=== PATIENT | male | born 1960 | race Caucasian/White ===

== ENCOUNTER → 2016-07-21 | Outpatient (CLI) | payer MEDICAID, MEDICARE ==
[~2016-07-21] MED LIST: AMLO10TA PO; ASPI-892 PO; ATOR40TA PO; BNZ40T PO; CLON0.1T PO; DICL75TA2 PO; ESZO2TAB4 PO; HYDR12.56 PO; HYDR25TA4 PO; METF500T8 PO; METO50TA2 PO; MULT-974 PO; PRAV40TA PO; PRED10TA PO; PSYL1PAC10 PO; SERT50TA9 PO
--- NOTE | 2016-07-21 13:16 | Diagnostic Imaging Report ---
PROCEDURE: MRI lumbar spine. TECHNIQUE: Multiplanar, multisequence MRI of the lumbar spine was performed without contrast. INDICATION: Low back pain. Right sciatica. COMPARISON: None. FINDINGS: There are five lumbar type vertebral bodies presumed for the purposes of this report. Normal alignment. Vertebral body heights are maintained. Benign hemangioma in the L1 vertebral body. Bone marrow signal is otherwise unremarkable. No abnormal signal in the conus, which terminates at L1. Normal morphology of the cauda equina without evidence of arachnoiditis. The visualized paravertebral soft tissues are unremarkable. At L4-L5, there is a right paracentral disc extrusion with superior migration that approaches the L3-L4 disc space. This results in moderate spinal canal narrowing, obliteration of the right lateral recess and compresses the exiting L4 nerve root. Facet arthropathy and disc space height loss contributes to moderate neural foraminal narrowing on the right at L3-L4, L4-L5 and L5-S1. There is moderate neuroforaminal narrowing on the left at L4-L5. No other substantial spinal canal, lateral recess or neural foraminal narrowing. IMPRESSION: 1. Large disc extrusion at L4-L5 would account for a right L4 and L5 radiculopathy. This also results in moderate spinal canal narrowing. 2. Lower lumbar moderate neural foraminal narrowing detailed above is greatest on the right. Dictated by: Dictated on workstation # [id number]
== END ==
LOC: RAD 12:09
PROVIDERS: ATTEND Nurse Practitioner Family
DX: M54.41 Lumbago with sciatica, right side (principal)
CPT/HCPCS: 72148

== ENCOUNTER 2016-08-29 15:37 | Observation (INO) | payer MEDICARE ==
[2016-08-29] VITALS (11 sets, daily range): BP systolic 123–141; BP diastolic 73–97
[~2016-08-29] VITALS: Ht 172.7 cm; Wt 115.2 kg
[2016-08-29] MEDS ORDERED: RX-NITROGLYCERIN 0.4 MG TAB BTL 25'S SL PRN (16:00)
[2016-08-29] MEDS ORDERED: ASPIRIN 81 MG CHEW (CHILDREN'S ASA) PO ONE (16:00)
[2016-08-29 16:13] LABS: BASOPHILS % (AUTO) 0 % (0-10); EOSINOPHILS # (AUTO) 0.2 10^3/uL (0.0-0.3); EOSINOPHILS % (AUTO) 2 % (0-10); LYMPHOCYTES # (AUTO) 1.8 X 10^3 (1.0-4.0); LYMPHOCYTES % (AUTO) 17 % (12-44); MEAN CORPUSCULAR HEMOGLOBIN 29 PG (25-34); MEAN CORPUSCULAR HGB CONC 33 G/DL (32-36); MEAN CORPUSCULAR VOLUME 86 FL (80-99); MEAN PLATELET VOLUME 9.8 FL (7.4-10.4); MONOCYTES # (AUTO) 0.7 X 10^3 (0.0-1.0); MONOCYTES % (AUTO) 6 % (0-12); NEUTROPHILS # (AUTO) 8.1 X 10^3 (1.8-7.8); NEUTROPHILS % (AUTO) 75 % (42-75); PLATELET COUNT 236 10^3/uL (130-400); RED BLOOD COUNT 4.65 10^6/uL (4.35-5.85); WHITE BLOOD COUNT 10.7 10^3/uL (4.3-11.0)
--- NOTE | 2016-08-29 16:17 | Diagnostic Imaging Report ---
INDICATION: Chest pain and shortness of breath. EXAMINATION: PA and lateral chest. FINDINGS: The heart size and pulmonary vascularity are normal. The lungs are clear. There are no effusions or pneumothoraces. IMPRESSION: Negative chest. Dictated by: Dictated on workstation # [id number]
[2016-08-29 16:19] LABS: PROTHROMBIN TIME PATIENT 13.3 SEC (12.2-14.7)
[2016-08-29 16:27] LABS: ALANINE AMINOTRANSFERASE 20 U/L (0-55); ALBUMIN 3.9 GM/DL (3.2-4.5); ANION GAP 13 MMOL/L (5-14); ASPARTATE AMINO TRANSFERASE 16 U/L (5-34); BILIRUBIN,TOTAL 0.3 MG/DL (0.1-1.0); BLOOD UREA NITROGEN 14 MG/DL (7-18); BUN/CREATININE RATIO 16; CALCIUM 8.9 MG/DL (8.5-10.1); CARBON DIOXIDE 23 MMOL/L (21-32); CHLORIDE 107 MMOL/L (98-107); CREATININE SERUM 0.87 MG/DL (0.60-1.30); GFR ESTIMATED > 60; GLUCOSE 141 MG/DL (70-105); MAGNESIUM 1.8 MG/DL (1.8-2.4); POTASSIUM 3.2 MMOL/L (3.6-5.0); SODIUM 143 MMOL/L (135-145); TOTAL PROTEIN 6.4 GM/DL (6.4-8.2)
[2016-08-29 16:33] LABS: MYOGLOBIN SERUM 57.9 NG/ML (10.0-92.0)
[2016-08-29] MEDS ORDERED: RT-ALBUTEROL SULF 2.5 MG/3 ML PRE-MIX VIAL INH STA (16:35)
[2016-08-29] MEDS ORDERED: KCL 10 MEQ TAB (MICRO K) PO ONE (16:45)
--- NOTE | 2016-08-29 16:49 | ED Chest Pain ---
General Chief Complaint: Chest Pain Stated Complaint: SOB/DIZZINESS/LOWER BACK PAIN Nursing Triage Note: PT CO OF SOA STARTED THIS AMAND DIZZINESS X2 WEEKS, PT STATES HAD CHEST TIGHTNESS APPROX 4 HOURS AGO. Nursing Sepsis Screen: No Definite Risk Source: patient, old records Exam Limitations: no limitations History of Present Illness Time seen by provider: 15:59 Initial Comments This 56-year-old gentleman presents to emergency room with complaint of "dizzy spells" for the past 3 weeks intermittently. He reports lightheadedness with near-syncope especially upon standing. He has had shortness of air associated with these spells as well as shortness of air throughout the day. He had an episode of mild chest tightness today around 11:00. He had a cardiac catheterization performed a year ago demonstrating diffuse coronary ectasia with slow flow in the circumflex and right coronary system due to small vessel disease. He denies any lower extremity pain. He denies any fever or cough. Allergies and Home Medications Allergies Coded Allergies: Penicillins (Unverified Allergy, Mild, hives , 08/13/14) Sulfa (Sulfonamide Antibiotics) (Unverified Allergy, Mild, hives , 08/13/14 ) hydrocodone (Unverified Allergy, Mild, headache , 08/13/14) Home Medications Albuterol/Ipratropium 4 Gm Aero, 2 PUFF IH, (Reported) Amlodipine Besylate 10 Mg Tablet, 10 MG PO DAILY, (Reported) Aspirin 81 Mg Tabec, 81 MG PO DAILY, (Reported) Atorvastatin Calcium 40 Mg Tablet, 40 MG PO DAILY, #30 Ref 4 Prescribed by: BULL BROWN on 08/13/14 1104 Benazepril HCl 40 Mg Tablet, 40 MG PO DAILY, (Reported) Benazepril Hcl 40 Mg Tablet, 40 MG PO DAILY, (Reported) Benztropine Mesylate 1 Mg Tablet, 1 MG PO DAILY, (Reported) Citalopram Hydrobromide 40 Mg Tablet, 40 MG PO DAILY, (Reported) Clonazepam 0.5 Mg Tablet, 0.5 MG PO BID, (Reported) Clonidine Hcl 0.1 Mg Tablet, 0.05 MG PO BID, (Reported) TAKES 1/2 (0.1MG) TABLET Diazepam 5 Mg Tablet, 5 MG PO PRN, (Reported) Diclofenac Sodium 75 Mg Tablet.dr, 75 MG PO BID PRN for ARTHRITIS PAIN, ( Reported) Eszopiclone 2 Mg Tablet, 2 MG PO HS, (Reported) Gabapentin 300 Mg Capsule, 300 MG PO DAILY, (Reported) Hydrochlorothiazide 25 Mg Tablet, 25 MG PO DAILY, (Reported) Metformin HCl 500 Mg Tab.er.24, 500 MG PO BID, (Reported) Metoprolol Tartrate 50 Mg Tablet, 50 MG PO BID, (Reported) Multivitamin 1 Each Tablet, 1 TAB PO DAILY, (Reported) Omeprazole Magnesium 20 Mg Tablet.dr, 40 MG PO DAILY, (Reported) Oxycodone HCl/Acetaminophen 1 Each Tablet, 1 EACH PO PRN, (Reported) Potassium Chloride 10 Meq Capsule.er, 10 MEQ PO DAILY, (Reported) Psyllium Seed/Sucrose 1 Each Packet, 1 PACKET PO BID, (Reported) Sertraline Hcl 50 Mg Tablet, 25 MG PO HS, (Reported) TAKES 1/2 (50MG) TABLET Tadalafil 5 Mg Tablet, 5 MG PO, (Reported) Tamsulosin HCl 0.4 Mg Cap.er.24h, 0.4 MG PO DAILY, (Reported) Terbinafine 250 Mg Tab, 250 MG PO DAILY, (Reported) Trazodone HCl 100 Mg Tablet, 100 MG PO HS, (Reported) Ziprasidone 80 Mg Cap, 80 MG PO HS, (Reported) Review of Systems Constitutional: no symptoms reported EENTM: No Symptoms Reported Respiratory: See HPI Cardiovascular: See HPI Gastrointestinal: No Symptoms Reported Genitourinary: No Symptoms Reported Musculoskeletal: no symptoms reported Skin: no symptoms reported Psychiatric/Neurological: No Symptoms Reported Endocrine: No Symptoms Reported Hematologic/Lymphatic: No Symptoms Reported Past Awdsbii-Fvhzhp-Hxfypt Hx Patient Social History Alcohol Use: Occasionally Uses Recreational Drug Use: No Smoking Status: Never a Smoker Type Used: Cigarettes Recent Foreign Travel: No Contact w/Someone Who Travel: No Recent Infectious Disease Expo: No Recent Hopitalizations: No Seasonal Allergies Seasonal Allergies: No Surgeries Surgeries: Adenoidectomy, Appendectomy, Tonsillectomy Respiratory Hx Respiratory Disorders: Yes Respiratory Disorders: Asthma Cardiovascular Hx Cardiac Disorders: Yes Cardiac Disorders: Hypertension Neurological Hx Neurological Disorders: No Genitourinary Hx Genitourinary Disorders: No Gastrointestinal Hx Gastrointestinal Disorders: Yes (umbilical hernia) Gastrointestinal Disorders: Gastroesophageal Reflux Musculoskeletal Hx Musculoskeletal Disorders: No Endocrine Hx Endocrine Disorders: Yes (obesity) Endocrine Disorders: Diabetes, Non-Insulin dep HEENT HX ENT Disorders: No Cancer Hx Cancer: No Psychosocial Hx Psychiatric Problems: Yes Behavioral Health Disorders: Depression Physical Exam Vital Signs Vital Sign - Last 12Hours 08/29/16 08/29/16 15:45 16:25 Temp 97.9 Pulse 59 Resp 11 B/P (MAP) 128/75 Pulse Ox 95 O2 Delivery Room Air O2 Flow Rate 2.00 Capillary Refill : Less Than 3 Seconds General Appearance: No Apparent Distress, WD/WN, Obese HEENT: PERRL/EOMI, Normal ENT Inspection Neck: Normal Inspection, Supple, No Carotid Bruit, No JVD Respiratory: Lungs Clear, Normal Breath Sounds, No Accessory Muscle Use, No Respiratory Distress Cardiovascular: Regular Rate, Rhythm (borderline bradycardia), No Murmur, Normal Peripheral Pulses Gastrointestinal: Normal Bowel Sounds, Non Tender, Soft Extremity: Normal Inspection, Non Tender, No Calf Tenderness, Swelling (mild lower extremity edema equal bilaterally), Other (negative Bola) Neurologic/Psychiatric: Alert, Oriented x3, No Motor/Sensory Deficits, Normal Mood/Affect, warehouse inventory clerk II-XII Norm as Tested Skin: Normal Color, Warm/Dry Progress/Results/Core Measures Results/Orders Lab Results Laboratory Tests Test 08/29/16 15:55 Range/Units White Blood Count 10.7 4.3-11.0 10^3/uL Red Blood Count 4.65 4.35-5.85 10^6/uL Hemoglobin 13.3 13.3-17.7 G/DL Hematocrit 40 40-54 % Mean Corpuscular Volume 86 80-99 FL Mean Corpuscular Hemoglobin 29 25-34 PG Mean Corpuscular Hemoglobin Concent 33 32-36 G/DL Red Cell Distribution Width 14.0 10.0-14.5 % Platelet Count 236 130-400 10^3/uL Mean Platelet Volume 9.8 7.4-10.4 FL Neutrophils (%) (Auto) 75 42-75 % Lymphocytes (%) (Auto) 17 12-44 % Monocytes (%) (Auto) 6 0-12 % Eosinophils (%) (Auto) 2 0-10 % Basophils (%) (Auto) 0 0-10 % Neutrophils # (Auto) 8.1 H 1.8-7.8 X 10^3 Lymphocytes # (Auto) 1.8 1.0-4.0 X 10^3 Monocytes # (Auto) 0.7 0.0-1.0 X 10^3 Eosinophils # (Auto) 0.2 0.0-0.3 10^3/uL Basophils # (Auto) 0.0 0.0-0.1 10^3/uL Prothrombin Time 13.3 12.2-14.7 SEC INR Comment 1.0 0.8-1.4 Activated Partial Thromboplast Time 29 24-35 SEC D-Dimer 0.70 H 0.00-0.49 UG/ML Sodium Level 143 135-145 MMOL/L Potassium Level 3.2 L 3.6-5.0 MMOL/L Chloride Level 107 98-107 MMOL/L Carbon Dioxide Level 23 21-32 MMOL/L Anion Gap 13 5-14 MMOL/L Blood Urea Nitrogen 14 7-18 MG/DL Creatinine 0.87 0.60-1.30 MG/DL Estimat Glomerular Filtration Rate > 60 BUN/Creatinine Ratio 16 Glucose Level 141 H 70-105 MG/DL Calcium Level 8.9 8.5-10.1 MG/DL Magnesium Level 1.8 1.8-2.4 MG/DL Total Bilirubin 0.3 0.1-1.0 MG/DL Aspartate Amino Transf (AST/SGOT) 16 5-34 U/L Alanine Aminotransferase (ALT/SGPT) 20 0-55 U/L Alkaline Phosphatase 66 40-136 U/L Myoglobin 57.9 10.0-92.0 NG/ML Troponin I < 0.30 <0.30 NG/ML B-Type Natriuretic Peptide 42.4 <100.0 PG/ML Total Protein 6.4 6.4-8.2 GM/DL Albumin 3.9 3.2-4.5 GM/DL My Orders Orders - JUAN OVALLE MD Cbc With Automated Diff (08/29/16 15:59) Magnesium (08/29/16 15:59) Ekg Tracing (08/29/16 15:59) Cardiac Profile 1 (08/29/16 15:59) Comprehensive Metabolic Panel (08/29/16 15:59) Myoglobin Serum (08/29/16 15:59) Protime With Inr (08/29/16 15:59) Partial Thromboplastin Time (08/29/16 15:59) O2 (08/29/16 15:59) Monitor-Rhythm Ecg Trace Only (08/29/16 15:59) Lipid Panel (08/30/16 06:00) Aspirin Chewable Tablet (Baby Aspirin Ch (08/29/16 16:00) Rx-Nitroglycerin Sl Tabs (Rx-Nitrostat S (08/29/16 16:00) Saline Lock/Iv-Start (08/29/16 15:59) Chest Pa/Lat (2 View) (08/29/16 16:01) Us Carotid Rubina Complete [id number] (08/29/16 16:25) Albuterol Pre-Mix Nebs (Rt) (Proventil P (08/29/16 16:35) Svn Sm Volume Nebulizer Rt-Rfs (08/29/16 16:35) Potassium Chloride (Tablet) (Klor Con Ta (08/29/16 16:45) Fibrin Degradation Products (08/29/16 17:29) Ct Angio Chest W (08/29/16 17:58) Iohexol Injection (Omnipaque 350 Mg/Ml 1 (08/29/16 18:00) Sodium Chloride Flush (Catheter Flush Sy (08/29/16 18:00) Ns (Ivpb) (Sodium Chloride 0.9% Ivpb Bag (08/29/16 18:00) BNP (08/29/16 18:18) Medications Given in ED Vital Signs/I&O Vital Sign - Last 12Hours 08/29/16 08/29/16 08/29/16 08/29/16 15:45 15:45 16:25 16:54 Temp 97.9 Pulse 59 Resp 11 B/P (MAP) 128/75 Pulse Ox 95 87 96 O2 Delivery Room Air Nasal Cannula Nasal Cannula O2 Flow Rate 2.00 2.00 Blood Pressure Mean: 92 Progress Note #1: Time: 16:53 Progress Note Patient was noted to have mild hypoxia on room air with oxygen saturations dipping as low as 87 percent on room air. Although pulmonary exam was normal, an albuterol nebulizer treatment is being administered. If hypoxia and shortness of air persist, screening for pulmonary embolus will be considered. Patient reports having one very brief episode of tightness in the exam room since triage. Carotid artery ultrasound has been ordered and is pending. Cardiac catheter from a year ago was reviewed. Progress Note #2: Time: 17:28 Progress Note Oxygen saturations have improved somewhat since receiving the albuterol nebulizer treatment. He denies any further episodes of chest tightness. Oxygen saturations are running 90-94 percent on room air. Because they are still lower than expected, a d-dimer will be ordered. Carotid artery ultrasound is still pending. Progress Note #3: Time: 18:05 Progress Note D-dimer was mildly elevated. CT angiogram has been ordered. Oxygen saturations are now 97 percent on room air. Patient has had no more chest tightness but did have a brief episode of nausea. Carotid ultrasound was reportedly negative per environmental compliance technician. Progress Note #4: Time: 18:[address] angiogram is pending. Case was reviewed with Dr. Hernandez. If CT is positive for pulmonary embolus and patient remained stable, he can be treated accordingly and dismissed. If CT is negative, he recommends admission for monitoring cardiac rhythm and performing a troponin rule out. He recommends admitting to the primary care or hospitalist service with a cardiology consult. ECG Initial ECG Impression Date: Aug 29, 2016 Initial ECG Impression Time: 15:54 Initial ECG Rate: 56 Initial ECG Rhythm: Normal Sinus Initial ECG Intervals: Normal Initial ECG Impression: Normal Comment Normal sinus rhythm with no ST elevation or depression. No abnormal intervals or axis deviation. Diagnostic Imaging Diagonstic Imaging: Xray Plain Films/CT/US/NM/MRI: chest Comments Chest x-ray viewed by me and report reviewed. See report below: NAME: MERON CHAPARRO [facility] REC#: [id number] PT STATUS: REG ER : 1960 PHYSICIAN: JUAN OVALLE MD ADMIT DATE: 08/29/16/ER Signed Date of Exam: 08/29/16 CHEST PA/LAT (2 VIEW) INDICATION: Chest pain and shortness of breath. EXAMINATION: PA and lateral chest. FINDINGS: The heart size and pulmonary vascularity are normal. The lungs are clear. There are no effusions or pneumothoraces. IMPRESSION: Negative chest. Dictated by: Dictated on workstation # [id number] Dict: 08/29/16 1615 Trans: 08/29/16 1618 Interpreted by: VINNIE HUGHES Electronically signed by: VINNIE HUGHES 08/29/16 1618 Diagonstic Imaging: Ultrasound Comments NAME: MERON CHAPARRO [facility] REC#: [id number] PT STATUS: REG ER : 1960 PHYSICIAN: JUAN OVALLE MD ADMIT DATE: 08/29/16/ER Signed Date of Exam: 08/29/16 US CAROTID RUBINA COMPLETE [id number] PROCEDURE: US Carotid Duplex Bilateral. TECHNIQUE: Multiple real-time grayscale images were obtained over the carotid arteries in various projections bilaterally. Additional duplex Doppler and color Doppler images were also obtained. INDICATION: Shortness of breath and dizziness. FINDINGS: No significant plaque formation is seen within either carotid artery system. There are no elevated velocities or ratios to suggest a hemodynamically significant stenosis within either carotid artery system. There is antegrade flow in the vertebral arteries bilaterally. IMPRESSION: 1. Unremarkable bilateral carotid ultrasound. Peak systolic velocities and flow ratios are described below. 2. Common carotid artery on right is 81 cm/s and on left 83 cm/s. Internal carotid artery on right 52 cm/s and on left 58 cm/s. Internal carotid artery distally on right is 46 cm/s and on left 42 cm/s. ICA/CCA ratio on right is 0.6 and on left -0.5. Dictated by: Dictated on workstation # [id number] Dict: 08/29/161823 Trans: 08/29/161838 Interpreted by: PATT CURRAN DO Electronically signed by: PATT CURRAN DO 08/29/16 1839 Diagonstic Imaging: CT Plain Films/CT/US/NM/MRI: chest Comments CT angiogram viewed by me and report reviewed. See report below: NAME: MERON CHAPARRO [facility] REC#: [id number] PT STATUS: REG ER : 1960 PHYSICIAN: JUAN OVALLE MD ADMIT DATE: 08/29/16/ER Signed Date of Exam: 08/29/16 CT ANGIO CHEST W PROCEDURE: CT angiography of the chest with contrast. TECHNIQUE: Multiple contiguous axial images were obtained through the chest after uneventful bolus administration of intravenous contrast. Reconstructed CTA MIP acquisitions were also performed. INDICATION: Chest pain and shortness of breath. COMPARISON: None. FINDINGS: There is no evidence of pulmonary embolus or thoracic aortic abnormality. There is no pneumothorax. There are trace effusions with some pleural calcification bilaterally in the lung bases. There is mild basilar atelectasis. The lungs are otherwise clear. No focal pneumonia is seen. There is no adenopathy demonstrated. No acute abnormality is demonstrated in the visualized upper abdomen. No acute osseous abnormality is seen. IMPRESSION: No evidence of pulmonary embolus or other acute abnormality in the chest. Dictated by: Dictated on workstation # [id number] Dict: 08/29/161831 Trans: 08/29/161849 Interpreted by: PATT CURRAN DO Electronically signed by: PATT CURRAN DO 08/29/161849 Departure Communication Time/Spoke to Admitting Phy: 19:00 Communication Case reviewed with Dr. Saez who agrees to admission. She would like to continue home medications to see how he responds on his usual treatment plan. Time/Spoke to Consulting Physi: 18:14 Communication/Consulting Case reviewed with Dr. Hernandez who recommended admission for troponin rule out and rhythm monitoring overnight. CT angiogram and BNP results were sent to him as an update as requested. Impression Impression: Primary Impression: Near syncope Additional Impressions: Dyspnea Qualified Codes: R06.00 - Dyspnea, unspecified Hypoxia Chest pain Qualified Codes: R07.9 - Chest pain, unspecified Asthma exacerbation Hypokalemia Disposition: ADMITTED INPATIENT Condition: Improved Decision to Admit Reason: Admit from ER (General) Decision to Admit/Date: Aug 29, 2016 Time/Decision to Admit Time: 18:14 Departure-Patient Inst. Referrals: MARLINE VERA DO (PCP) Primary Care Physician JESSICA MANCILLA (Family) Primary Care Physician JUAN OVALLE MD Aug 29, 2016 16:49
[2016-08-29] MEDS ORDERED: CATHETER FLUSH 10 ML SYR IV PRN (18:00)
[2016-08-29] MEDS ORDERED: IOHEXOL 350 MG/ML 150 ML (OMNIPAQUE 350) VIAL IV ONE (18:00)
[2016-08-29] MEDS ORDERED: NS 100 ML (IVPB) BAG IV ONE (18:00)
--- NOTE | 2016-08-29 18:32 | Diagnostic Imaging Report ---
PROCEDURE: US Carotid Duplex Bilateral. TECHNIQUE: Multiple real-time grayscale images were obtained over the carotid arteries in various projections bilaterally. Additional duplex Doppler and color Doppler images were also obtained. INDICATION: Shortness of breath and dizziness. FINDINGS: No significant plaque formation is seen within either carotid artery system. There are no elevated velocities or ratios to suggest a hemodynamically significant stenosis within either carotid artery system. There is antegrade flow in the vertebral arteries bilaterally. IMPRESSION: 1. Unremarkable bilateral carotid ultrasound. Peak systolic velocities and flow ratios are described below. 2. Common carotid artery on right is 81 cm/s and on left 83 cm/s. Internal carotid artery on right 52 cm/s and on left 58 cm/s. Internal carotid artery distally on right is 46 cm/s and on left 42 cm/s. ICA/CCA ratio on right is 0.6 and on left -0.5. Dictated by: Dictated on workstation # [id number]
--- NOTE | 2016-08-29 18:45 | Diagnostic Imaging Report ---
PROCEDURE: CT angiography of the chest with contrast. TECHNIQUE: Multiple contiguous axial images were obtained through the chest after uneventful bolus administration of intravenous contrast. Reconstructed CTA MIP acquisitions were also performed. INDICATION: Chest pain and shortness of breath. COMPARISON: None. FINDINGS: There is no evidence of pulmonary embolus or thoracic aortic abnormality. There is no pneumothorax. There are trace effusions with some pleural calcification bilaterally in the lung bases. There is mild basilar atelectasis. The lungs are otherwise clear. No focal pneumonia is seen. There is no adenopathy demonstrated. No acute abnormality is demonstrated in the visualized upper abdomen. No acute osseous abnormality is seen. IMPRESSION: No evidence of pulmonary embolus or other acute abnormality in the chest. Dictated by: Dictated on workstation # [id number]
[2016-08-29] MEDS ORDERED: RT-ALBUTEROL SULF 2.5 MG/3 ML PRE-MIX VIAL IH PRN (20:00)
[2016-08-29] MEDS ORDERED: ONDANSETRON 4 MG/2 ML (SDV) Z0FRAN IV PRN (20:00)
[2016-08-29] MEDS: CATHETER FLUSH 10 ML SYR IV SCH (21:03)
[2016-08-29] MEDS ORDERED: IPRA4AER IH (21:33)
[2016-08-29] MEDS ORDERED: POTA10CA43 PO (21:33)
[2016-08-29] MEDS ORDERED: TERBIN250T PO (21:33)
[2016-08-29] MEDS ORDERED: DIAZ5TAB PO (21:33)
[2016-08-29] MEDS ORDERED: METF-478 PO (21:33)
[2016-08-29] MEDS ORDERED: TAMS0.4C2 PO (21:33)
[2016-08-29] MEDS ORDERED: BENA40TA59 PO (21:33)
[2016-08-29] MEDS ORDERED: CLON0.5T PO (21:33)
[2016-08-29] MEDS ORDERED: OXYC-197 PO (21:33)
[2016-08-29] MEDS ORDERED: TRAZ100T92 PO (21:33)
[2016-08-29] MEDS ORDERED: BENZ1TAB6 PO (21:33)
[2016-08-29] MEDS ORDERED: GABA300C PO (21:33)
[2016-08-29] MEDS ORDERED: ZPR80C PO (21:33)
[2016-08-29] MEDS ORDERED: CITA40TA19 PO (21:33)
[2016-08-29] MEDS ORDERED: OMEP20TA33 PO (21:33)
[2016-08-29] MEDS ORDERED: TADA5TAB2 PO (21:33)
[2016-08-30] VITALS (7 sets, daily range): BP systolic 109–145; BP diastolic 68–86
[2016-08-30 04:36] LABS: CHOLESTEROL 204 MG/DL (< 200); DIRECT LDL 143 MG/DL (1-129); TRIGLYCERIDES 163 MG/DL (<150); VLDL CHOLESTEROL 33 MG/DL (5-40)
[2016-08-30] MEDS: CATHETER FLUSH 10 ML SYR IV SCH ×2 (05:30→15:16)
[2016-08-30 07:08] LABS: ANION GAP 11 MMOL/L (5-14); BLOOD UREA NITROGEN 12 MG/DL (7-18); BUN/CREATININE RATIO 15; CALCIUM 9.3 MG/DL (8.5-10.1); CARBON DIOXIDE 26 MMOL/L (21-32); CHLORIDE 106 MMOL/L (98-107); CREATININE SERUM 0.81 MG/DL (0.60-1.30); GFR ESTIMATED > 60; GLUCOSE 109 MG/DL (70-105); POTASSIUM 3.3 MMOL/L (3.6-5.0); SODIUM 143 MMOL/L (135-145)
--- NOTE | 2016-08-30 07:14 | Progress Note (SOAP) ---
WANDA LU MED STUDENT 08/30/16 0714: Subjective Subjective/Events-last exam Patient presents today in no acute distress. Patient states he is no longer short of breath and denies chest pain since admission. Patient states the chest pain that he experienced yesterday around 11 AM occurred at rest when he was sitting down. Patient states that he experiences this chest pain 4-5 times a week. At times, the chest pain will sometimes last all day and other times the pain will only last a few minutes. Patient states this weekly chest pain has been occurring for a few years now. Patient states that his chest pain was the reason for his cardiac catheterization one year ago. Patient states he has been having pain when swallowing since he has been admitted. Patient states when he eats he experiences a burning sensation, as if his food was "covered in hot sauce," but states that this pain is not similar to what he experience with his GERD. Patient states he has lower extremity and back pain. Patient believes it is due to his sciatica. Patient states he has had pain since he helped his son move. Patient adds that he has had this pain intermittently for years. Review of Systems Date Seen by Provider: Aug 30, 2016 Time Seen by Provider: 07:14 HEENT: Sinus Congestion Musculoskeletal: back pain, leg pain Objective Exam Last Set of Vital Signs Vital Signs Date Time Temp Pulse Resp B/P (MAP) Pulse Ox O2 Delivery O2 Flow Rate FiO2 08/30/16 04:00 97 Room Air 08/30/16 04:00 98.6 57 18 122/82 08/29/16 16:54 2.00 Capillary Refill : Less Than 3 Seconds General: Alert, Oriented X3, Cooperative, No Acute Distress Lungs: Clear to Auscultation, Normal Air Movement Heart: Regular Rate, Normal S1, Normal S2, No Murmurs Abdomen: Normal Bowel Sounds Extremities: Other (1+ edema bilaterally) Neuro: Normal Speech Psych/Mental Status: Mental Status NL, Mood NL Results/Procedures Lab Laboratory Tests 08/29/16 15:55: White Blood Count 10.7, Red Blood Count 4.65, Hemoglobin 13.3, Hematocrit 40, Mean Corpuscular Volume 86, Mean Corpuscular Hemoglobin 29, Mean Corpuscular Hemoglobin Concent 33, Red Cell Distribution Width 14.0, Platelet Count 236, Mean Platelet Volume 9.8, Neutrophils (%) (Auto) 75, Lymphocytes (%) (Auto) 17, Monocytes (%) (Auto) 6, Eosinophils (%) (Auto) 2, Basophils (%) (Auto) 0, Neutrophils # (Auto) 8.1H, Lymphocytes # (Auto) 1.8, Monocytes # (Auto) 0.7, Eosinophils # (Auto) 0.2, Basophils # (Auto) 0.0, Prothrombin Time 13.3, INR Comment 1.0, Activated Partial Thromboplast Time 29, D-Dimer 0.70H, Sodium Level 143, Potassium Level 3.2L, Chloride Level 107, Carbon Dioxide Level 23, Anion Gap 13, Blood Urea Nitrogen 14, Creatinine 0.87, Estimat Glomerular Filtration Rate > 60, BUN/Creatinine Ratio 16, Glucose Level 141H, Calcium Level 8.9, Magnesium Level 1.8, Total Bilirubin 0.3, Aspartate Amino Transf (AST /SGOT) 16, Alanine Aminotransferase (ALT/SGPT) 20, Alkaline Phosphatase 66, Myoglobin 57.9, Troponin I < 0.30, B-Type Natriuretic Peptide 42.4, Total Protein 6.4, Albumin 3.9 08/29/16 22:15: Troponin I < 0.30 08/30/16 03:46: Triglycerides Level 163H, Cholesterol Level 204H, LDL Cholesterol Direct 143H, VLDL Cholesterol 33, HDL Cholesterol 35L 08/30/16 03:56: Assessment/Plan Assessment/Plan Admission Dx bradycardia syncope with SOB, suspected unstable angina hyperlipidemia hypokalemia GERD plan for discharge Plan bradycardia decrease metoprolol dose from 50 mg BID to 25 mg BID syncope with SOB, suspected unstable angina outpatient cardiac stress test hyperlipidemia increase atorvastatin dose from 40 mg to 80 mg 1x a day hypokalemia patient states he should be taking potassium supplements at home, but says that he is out; IV potassium replacement, recheck BMP @ 1300 GERD restart home medication (omeprazole 40 mg PO once daily) discharge plan for outpatient cardiac stress test, follow up with cardiology medication reconciliation to determine if all medications are necessary Diagnosis/Problems: Clinical Quality Measures AMI/AHF: ASA po Prior to arrival: Yes (81MG) DVT/VTE Risk/Contraindication: Risk Factor Score Per Nursin RFS Level Per Nursing on Admit: 2=Moderate EASTON JACKSON MD 08/31/16 1124: Supervisory-Addendum Brief Supervisory Addendum Patient seen and examined with MS3 Wanda Lu, see my Short Stay summary for my additional documentation/changes. WANDA LU MED STUDENT Aug 30, 2016 07:14 EASTON JACKSON MD Aug 31, 2016 11:28
[2016-08-30] MEDS ORDERED: NS IV 500 ML 500 ML ONE (08:50)
[2016-08-30] MEDS ORDERED: ASPIRIN E.C. 325 MG (ECOTRIN) TABLET PO SCH (09:00)
[2016-08-30] MEDS: POTASSIUM CL 10MEQ/50ML IVPB 50 ML IV SCH ×4 (09:05→13:06)
[2016-08-30] MEDS ORDERED: NS IV 500 ML 500 ML IV SCH (09:15)
[2016-08-30] MEDS ORDERED: NS IV 500 ML 500 ML IV ONE (09:15)
--- NOTE | 2016-08-30 09:19 | Consultation-Cardiology ---
HPI-Cardiology Cardiology Consultation Date of Consultation 08/30/16 Date of Admission Time Seen by Provider: 09:13 Indication: chest pain HPI 56 years old gentleman with history of coronary artery disease/small vessel disease, coronary artery ectasia, hypertension, hyperlipidemia and diabetes mellitus. Diabetic neuropathy. Was in his usual state of health until yesterday when he reported having occasional episodes of chest pain described it as dull achiness in the retrosternal area lasting for about a minute or less and resolving spontaneously, not related to exertion. He has been having some increasing shortness of breath on exertion. Denied any palpitation, had episodes of dizziness mainly orthostatic up and standing up from sitting position no full syncope was reported. Has chronic pedal edema. Has been having some sore throat, nausea, no vomiting, no weight loss, no diarrhea or constipation. He denied any cough, no fever or chills. No dysuria. Home Medications & Allergies Allergies: Coded Allergies: Penicillins (Unverified Allergy, Mild, hives , 08/13/14) Sulfa (Sulfonamide Antibiotics) (Unverified Allergy, Mild, hives , 08/13/14 ) hydrocodone (Unverified Allergy, Mild, headache , 08/13/14) Home Medication List Reviewed: Yes HVS-Qqrmlt-Yfzheo Hx Patient Social History Marital Status: Alcohol Use: Occasionally Uses Recreational Drug Use: No Smoking Status: Never a Smoker Recent Foreign Travel: No Recent Infectious Disease Expo: No Recent Hopitalizations: No Physical Abuse Screen: No Sexual Abuse: No Immunizations Up To Date Date of Pneumonia Vaccine: Dec 31, 2015 Past Medical History past medical history as discussed below Family Medical History Family Medical Hx family history of heart disease, hypertension Family History: Constitutional: see HPI, dizziness EENTM: mouth pain, see HPI Respiratory: see HPI, No cough, dyspnea on exertion, No hemoptysis, No orthopnea, phlegm, short of breath, No stridor, No wheezing, No other Cardiovascular: see HPI, chest pain, edema, No Hx of Intervention, No palpitations, No syncope, No vascular heart diseas, No other Gastrointestinal: RUQ, see HPI, nausea Genitourinary: see HPI Musculoskeletal: no symptoms reported, see HPI Skin: no symptoms reported, see HPI Psychiatric/Neurological: See HPI, Depressed, Numbness Reviewed Test Results Reviewed Test Results Lab Laboratory Tests Test 08/29/16 15:55 7/3/17 22:15 08/30/16 03:46 08/30/16 03:56 Range/Units White Blood Count 10.7 4.3-11.0 10^3/uL Red Blood Count 4.65 4.35-5.85 10^6/uL Hemoglobin 13.3 13.3-17.7 G/DL Hematocrit 40 40-54 % Mean Corpuscular Volume 86 80-99 FL Mean Corpuscular Hemoglobin 29 25-34 PG Mean Corpuscular Hemoglobin Concent 33 32-36 G/DL Red Cell Distribution Width 14.0 10.0-14.5 % Platelet Count 236 130-400 10^3/uL Mean Platelet Volume 9.8 7.4-10.4 FL Neutrophils (%) (Auto) 75 42-75 % Lymphocytes (%) (Auto) 17 12-44 % Monocytes (%) (Auto) 6 0-12 % Eosinophils (%) (Auto) 2 0-10 % Basophils (%) (Auto) 0 0-10 % Neutrophils # (Auto) 8.1 H 1.8-7.8 X 10^3 Lymphocytes # (Auto) 1.8 1.0-4.0 X 10^3 Monocytes # (Auto) 0.7 0.0-1.0 X 10^3 Eosinophils # (Auto) 0.2 0.0-0.3 10^3/uL Basophils # (Auto) 0.0 0.0-0.1 10^3/uL Prothrombin Time 13.3 12.2-14.7 SEC INR Comment 1.0 0.8-1.4 Activated Partial Thromboplast Time 29 24-35 SEC D-Dimer 0.70 H 0.00-0.49 UG/ML Sodium Level 143 143 135-145 MMOL/L Potassium Level 3.2 L 3.3 L 3.6-5.0 MMOL/L Chloride Level 107 106 98-107 MMOL/L Carbon Dioxide Level 23 26 21-32 MMOL/L Anion Gap 13 11 5-14 MMOL/L Blood Urea Nitrogen 14 12 7-18 MG/DL Creatinine 0.87 0.81 0.60-1.30 MG/DL Estimat Glomerular Filtration Rate > 60 > 60 BUN/Creatinine Ratio 16 15 Glucose Level 141 H 109 H 70-105 MG/DL Calcium Level 8.9 9.3 8.5-10.1 MG/DL Magnesium Level 1.8 1.8-2.4 MG/DL Total Bilirubin 0.3 0.1-1.0 MG/DL Aspartate Amino Transf (AST/SGOT) 16 5-34 U/L Alanine Aminotransferase (ALT/SGPT) 20 0-55 U/L Alkaline Phosphatase 66 40-136 U/L Myoglobin 57.9 10.0-92.0 NG/ML Troponin I < 0.30 < 0.30 <0.30 NG/ML B-Type Natriuretic Peptide 42.4 <100.0 PG/ML Total Protein 6.4 6.4-8.2 GM/DL Albumin 3.9 3.2-4.5 GM/DL Triglycerides Level 163 H <150 MG/DL Cholesterol Level 204 H < 200 MG/DL LDL Cholesterol Direct 143 H 1-129 MG/DL VLDL Cholesterol 33 5-40 MG/DL HDL Cholesterol 35 L 40-60 MG/DL Physical Exam Vital Signs Vital Sign - Last 12Hours 08/29/16 08/29/16 15:45 16:25 Temp 97.9 Pulse 59 Resp 11 B/P (MAP) 128/75 Pulse Ox 95 O2 Delivery Room Air O2 Flow Rate 2.00 Capillary Refill : Less Than 3 Seconds General Appearance: No Apparent Distress, WD/WN Eyes: Bilateral Eye EOMI, Bilateral Eye Normal Inspection, Bilateral Eye PERRL HEENT: PERRL/EOMI, TMs Normal, Normal ENT Inspection, Pharynx Normal Neck: Full Range of Motion, Normal Inspection, Non Tender, Supple Respiratory: Chest Non Tender, Lungs Clear, Normal Breath Sounds, No Accessory Muscle Use, No Respiratory Distress Cardiovascular: Regular Rate, Rhythm, No Edema, No Gallop, No JVD, No Murmur, Normal Peripheral Pulses Gastrointestinal: Normal Bowel Sounds, No Organomegaly, No Pulsatile Mass, Non Tender, Soft Back: Normal Inspection, No CVA Tenderness, No Vertebral Tenderness Extremity: Normal Capillary Refill, Normal Inspection, Normal Range of Motion, Non Tender, No Calf Tenderness, Pedal Edema (+1 pedal edema) Neurologic/Psychiatric: Alert, Oriented x3, No Motor/Sensory Deficits, Normal Mood/Affect Skin: Normal Color, Warm/Dry Lymphatic: No Adenopathy A/P-Cardiology Admission Diagnosis Chest pain nonspecific etiology Orthostatic dizziness Coronary artery disease Hypertension Diabetes mellitus Assessment/Plan Chest pain nonspecific etiology, atypical in presentation, unlikely to be cardiac in nature, EKG and cardiac enzymes are normal, known to have history of coronary artery disease, last workup was done in 2014, I recommend doing a stress test as an outpatient. Coronary artery disease, cardiac catheterization was done in 2014 showing diffuse coronary ectasia with slow flow in the right coronary artery and the left circumflex artery. Conservative management is recommended. Orthostatic dizziness, probably hypotensive episode. On multiple antihypertensive medication. I recommend decreasing amlodipine to 5 mg daily and monitor his tolerance and response as an outpatient. Peripheral edema, maintained on hydrochlorothiazide. Probably the use of amlodipine is worsening his edema, decreasing the dose might help. Hypokalemia, being replaced, managed by primary care physician Hypertension, on amlodipine, Benazepril, clonidine, hydrochlorothiazide and metoprolol. I recommend decreasing amlodipine at this point and monitoring his tolerance and response. Hyperlipidemia, poor control, maintained on Lipitor 40 mg daily, recommend adding fish oil and monitoring lipids Diabetes mellitus, followed and managed by primary care physician Diabetic neuropathy maintained on Neurontin. Shortness of breath, obesity, probably underlying COPD, questionable underlying sleep apnea. Depression, managed by primary care physician BMI is 38, we discussed weight loss. Sore throat, oral thrush, recommend antifungal. Nausea, history of gastroesophageal reflux disease maintained on omeprazole. I recommend follow-up as an outpatient, arrange for a stress test as an outpatient, decrease amlodipine to 5 mg daily, okay for discharge from cardiology standpoint after correcting his electrolytes abnormality Clinical Quality Measures AMI/AHF: ASA po Prior to arrival: Yes (81MG) DVT/VTE Risk/Contraindication: Risk Factor Score Per Nursin RFS Level Per Nursing on Admit: 2=Moderate BULL BROWN MD Aug 30, 2016 09:19
[2016-08-30] MEDS ORDERED: ALFU10TA11 PO (09:22)
[2016-08-30] MEDS ORDERED: ATOR40TA70 PO (09:31)
[2016-08-30] MEDS ORDERED: POTA10CA43 PO (09:31)
[2016-08-30] MEDS ORDERED: AMLO5TAB2 PO (09:31)
[2016-08-30 15:31] LABS: ANION GAP 10 MMOL/L (5-14); BLOOD UREA NITROGEN 10 MG/DL (7-18); BUN/CREATININE RATIO 12; CALCIUM 9.5 MG/DL (8.5-10.1); CARBON DIOXIDE 25 MMOL/L (21-32); CHLORIDE 108 MMOL/L (98-107); CREATININE SERUM 0.83 MG/DL (0.60-1.30); GFR ESTIMATED > 60; GLUCOSE 146 MG/DL (70-105); POTASSIUM 3.7 MMOL/L (3.6-5.0); SODIUM 143 MMOL/L (135-145)
--- NOTE | 2016-08-30 16:57 | Short Stay Summary ---
HPI History of Present Illness: Patient presents today in no acute distress. Patient states he is no longer short of breath and denies chest pain since admission. Patient states the chest pain that he experienced yesterday around 11 AM occurred at rest when he was sitting down. Patient states that he experiences this chest pain 4-5 times a week. At times, the chest pain will sometimes last all day and other times the pain will only last a few minutes. Patient states this weekly chest pain has been occurring for a few years now. Patient states that his chest pain was the reason for his cardiac catheterization one year ago. Patient states he has been having pain when swallowing since he has been admitted. Patient states when he eats he experiences a burning sensation, as if his food was "covered in hot sauce," but states that this pain is not similar to what he experience with his GERD. Patient states he has lower extremity and back pain. Patient believes it is due to his sciatica. Patient states he has had pain since he helped his son move. Patient adds that he has had this pain intermittently for years. (HPI info documented by MS3 Wanda Graham, I personally interviewed and examined patient as well.) Date seen by provider: Aug 30, 2016 Time Seen by Provider: 08:00 Attending Physician Easton Saez MD PCP Donna Brewer DO Consult Date of Admission Aug 29, 2016 at 7:04 pm Home Medications Home Medications Reviewed patient Home Medication Reconciliation Form Allergies Coded Allergies: Penicillins (Unverified Allergy, Mild, hives , 08/13/14) Sulfa (Sulfonamide Antibiotics) (Unverified Allergy, Mild, hives , 08/13/14 ) hydrocodone (Unverified Allergy, Mild, headache , 08/13/14) KBR-Fctrpg-Dtryat Hx Patient Social History Marrital Status: Alcohol Use: Occasionally Uses Recreational Drug Use: No Smoking Status: Never a Smoker Recent Foreign Travel: No Contact w/other who traveled: No Recent Hopitalizations: No Recent Infectious Disease Expo: No Physical Abuse Screen: No Sexual Abuse: No Immunizations Up To Date Date of Pneumonia Vaccine: Dec 31, 2015 Past Medical History PMHx: HTN HLD Asthma DMII BPH Anxiety Depression Tremor GERD PSurgHx: Tonsillectomy Pilonidal cyst removal Appendectomy Right knee arthroscopy Family Medical History Significant Family History: Other Conditions/Hx (Adopted) Family History: Review of Systems ([facility]) Date Seen by Provider: Aug 30, 2016 Time Seen by Provider: 08:10 Constitutional: No fever EENTM: nose congestion Respiratory: no symptoms reported Cardiovascular: see HPI Gastrointestinal: no symptoms reported Genitourinary: no symptoms reported Musculoskeletal: back pain Skin: no symptoms reported Psychiatric/Neurological: No Symptoms Reported Reviewed Test Results Reviewed Test Results Lab Laboratory Tests Test 08/29/16 15:55 08/29/16 22:15 08/30/16 03:46 08/30/16 03:56 Range/Units White Blood Count 10.7 4.3-11.0 10^3/uL Red Blood Count 4.65 4.35-5.85 10^6/uL Hemoglobin 13.3 13.3-17.7 G/DL Hematocrit 40 40-54 % Mean Corpuscular Volume 86 80-99 FL Mean Corpuscular Hemoglobin 29 25-34 PG Mean Corpuscular Hemoglobin Concent 33 32-36 G/DL Red Cell Distribution Width 14.0 10.0-14.5 % Platelet Count 236 130-400 10^3/uL Mean Platelet Volume 9.8 7.4-10.4 FL Neutrophils (%) (Auto) 75 42-75 % Lymphocytes (%) (Auto) 17 12-44 % Monocytes (%) (Auto) 6 0-12 % Eosinophils (%) (Auto) 2 0-10 % Basophils (%) (Auto) 0 0-10 % Neutrophils # (Auto) 8.1 H 1.8-7.8 X 10^3 Lymphocytes # (Auto) 1.8 1.0-4.0 X 10^3 Monocytes # (Auto) 0.7 0.0-1.0 X 10^3 Eosinophils # (Auto) 0.2 0.0-0.3 10^3/uL Basophils # (Auto) 0.0 0.0-0.1 10^3/uL Prothrombin Time 13.3 12.2-14.7 SEC INR Comment 1.0 0.8-1.4 Activated Partial Thromboplast Time 29 24-35 SEC D-Dimer 0.70 H 0.00-0.49 UG/ML Sodium Level 143 143 135-145 MMOL/L Potassium Level 3.2 L 3.3 L 3.6-5.0 MMOL/L Chloride Level 107 106 98-107 MMOL/L Carbon Dioxide Level 23 26 21-32 MMOL/L Anion Gap 13 11 5-14 MMOL/L Blood Urea Nitrogen 14 12 7-18 MG/DL Creatinine 0.87 0.81 0.60-1.30 MG/DL Estimat Glomerular Filtration Rate > 60 > 60 BUN/Creatinine Ratio 16 15 Glucose Level 141 H 109 H 70-105 MG/DL Calcium Level 8.9 9.3 8.5-10.1 MG/DL Magnesium Level 1.8 1.8-2.4 MG/DL Total Bilirubin 0.3 0.1-1.0 MG/DL Aspartate Amino Transf (AST/SGOT) 16 5-34 U/L Alanine Aminotransferase (ALT/SGPT) 20 0-55 U/L Alkaline Phosphatase 66 40-136 U/L Myoglobin 57.9 10.0-92.0 NG/ML Troponin I < 0.30 < 0.30 <0.30 NG/ML B-Type Natriuretic Peptide 42.4 <100.0 PG/ML Total Protein 6.4 6.4-8.2 GM/DL Albumin 3.9 3.2-4.5 GM/DL Triglycerides Level 163 H <150 MG/DL Cholesterol Level 204 H < 200 MG/DL LDL Cholesterol Direct 143 H 1-129 MG/DL VLDL Cholesterol 33 5-40 MG/DL HDL Cholesterol 35 L 40-60 MG/DL Test 08/30/16 15:02 Range/Units Sodium Level 143 135-145 MMOL/L Potassium Level 3.7 3.6-5.0 MMOL/L Chloride Level 108 H 98-107 MMOL/L Carbon Dioxide Level 25 21-32 MMOL/L Anion Gap 10 5-14 MMOL/L Blood Urea Nitrogen 10 7-18 MG/DL Creatinine 0.83 0.60-1.30 MG/DL Estimat Glomerular Filtration Rate > 60 BUN/Creatinine Ratio 12 Glucose Level 146 H 70-105 MG/DL Calcium Level 9.5 8.5-10.1 MG/DL Radiology 08/29/16 Chest x-ray- "Negative chest" 08/29/16 Carotid ultrasound: Unremarkable 08/29/16 CTA chest: IMPRESSION: No evidence of pulmonary embolus or other acute abnormality in the chest. Physical Exam-(CH[facility]) Physical Exam Vital Signs VS - Last 72 Hours, by Label 08/29/16 08/29/16 08/29/16/3/17 15:45 15:45 16:25 16:54 Temp 97.9 Pulse 59 Resp 11 B/P (MAP) 128/75 Pulse Ox 95 87 96 O2 Delivery Room Air Nasal Cannula Nasal Cannula O2 Flow Rate 2.00 2.00 08/29/16 08/29/16 08/29/16 08/29/16 19:36 19:45 19:45 19:52 Temp 98.1 97.9 Pulse 60 60 59 Resp 14 20 B/P (MAP) 131/97 Pulse Ox 97 96 96 O2 Delivery Room Air Room Air Room Air 08/29/16 08/29/16 08/29/16 08/29/16 20:00 20:00 20:15 20:30 Pulse 58 58 57 B/P (MAP) 128/82 123/85 130/84 Pulse Ox 97 96 95 97 O2 Delivery Room Air Room Air Room Air Room Air 08/29/16 08/29/16 08/29/16 08/29/16 20:45 21:00 21:30 22:00 Pulse 57 59 60 59 B/P (MAP) 130/87 141/89 132/87 131/86 Pulse Ox 94 96 93 97 O2 Delivery Room Air Room Air Room Air Room Air 08/29/16 08/29/16 08/29/16 08/29/16 22:30 22:40 23:00 23:30 Pulse 61 62 62 B/P (MAP) 137/87 123/73 136/80 Pulse Ox 97 98 95 93 O2 Delivery Room Air Room Air Room Air Room Air 08/30/16 08/30/16 08/30/16 08/30/16 00:00 00:00 00:00 01:00 Temp 97.7 Pulse 58 58 B/P (MAP) 126/79 Pulse Ox 92 94 O2 Delivery Room Air Room Air 08/30/16 08/30/16 08/30/16 08/30/16 01:00 02:00 03:00 04:00 Temp 98.6 Pulse 59 62 58 57 Resp 18 B/P (MAP) 126/84 109/71 121/68 122/82 Pulse Ox 90 93 90 92 O2 Delivery Room Air Room Air Room Air Room Air 08/30/16 08/30/16 08/30/16 08/30/16 04:00 07:00 08:00 08:00 Temp 98.2 Pulse 60 63 Resp 18 B/P (MAP) 130/86 Pulse Ox 97 96 96 O2 Delivery Room Air Room Air Room Air 08/30/16 08/30/16 08/30/16 08/30/16 08:00 10:15 11:51 12:00 Temp 98.7 Pulse 81 Resp 16 B/P (MAP) 145/82 Pulse Ox 96 98 95 96 O2 Delivery Room Air Room Air Room Air Room Air 08/30/16 08/30/16 13:00 16:14 Pulse 77 B/P (MAP) Capillary Refill : Less Than 3 Seconds General Appearance: WD/WN, no apparent distress Respiratory: lungs clear, normal breath sounds Cardiovascular: regular rate, rhythm, no murmur Gastrointestinal: normal bowel sounds, non tender, soft Extremities: pedal edema (1+ bilaterally) Neurologic/Psychiatric: alert Skin: normal color, warm/dry Short Stay Diagnosis Discharge Diagnosis-Short Stay Admission Diagnosis Presyncope Bradycardia Chest pain Hyperlipidemia Hypokalemia GERD Final Discharge Diagnosis See plan Conclusion Plan Presyncope with intermittent chest pain -Cardiology consulted, plan for outpatient follow-up/stress testing, recommend decrease amlodipine -D dimer elevated, CTA chest negative for PE; cardiac enzymes negative -Discussed with patient that he is on multiple medications which could cause presyncopal symptoms and recommend considering adjustments further outpatient ( ie clonidine, alfusozin, clonazepam, geodon, trazodone, gabapentin) Bradycardia -May be related to his presyncopal symptoms, consider decreasing dose if symptoms persist with decrease of amlodipine Hyperlipidemia -When asked, stated he thought he was taking atorvastatin, but review of clinic chart and externa med history shows no prescriptions or refills- was [place] [address] Blue to replace pravastatin due to poorly controlled lipids -New script sent Hypokalemia -Patient states he should be taking potassium supplements at home, but says that he is out; IV potassium replacement,K normal at d/c -Script for KCL sent to pharmacy GERD restart home medication (omeprazole 40 mg PO once daily) Clinical Quality Measures AMI/AHF: ASA po Prior to arrival: Yes (81MG) DVT/VTE Risk/Contraindication: Risk Factor Score Per Nursin RFS Level Per Nursing on Admit: 2=Moderate Copy Copies To 1: QASIM Ponce BETHANY N MD Aug 30, 2016 4:57 pm
--- OUTSIDE RECORDS SUMMARY | 2016-08-31 15:13 | XMS REPORT ---
Author Author ANA DUKE [facility] eClinicalWorks Address Unknown Phone Unavailable Care Team Providers Care Railroad Design Consultant Name Role Phone ANA DUKE CP Unavailable Allergies, Adverse Reactions, Alerts Substance Reaction Event Type Sulfamethoxazole anaphylaxis Drug Allergy Sodium Polystyrene Sulfonate nausea, vomiting Drug Allergy Remeron bad nightmares Drug Allergy Penicillin V Potassium anaphylaxis Drug Allergy Hydrocodone-Acetaminophen headache Drug Allergy Problems Problem Type Condition Code Onset Dates Condition Status Problem Leg pain, bilateral M79.604 Active Problem Essential (primary) hypertension I10 Active Problem Tooth infection K04.7 Active Problem Impotence due to erectile dysfunction N52.9 Active Assessment Anxiety disorder, unspecified F41.9 Active Problem Mild intermittent asthma, uncomplicated J45.20 Active Problem Type 2 diabetes mellitus with unspecified complications E11.8 Active Medications No Known Medications Procedures Procedure Coding System Code Date Psychotherapy, patient &/family, 30 minutes, established patient CPT-4 04135 Dec 18, 2014 Results No Known Results Summary Purpose eClinicalWorks Submission
--- OUTSIDE RECORDS SUMMARY | 2016-08-31 15:13 | XMS REPORT ---
Author Author JESSICA MANCLILA [facility] eClinicalWorks Address Unknown Phone Unavailable Care Team Providers Care Waistband Setter Lockstitch Name Role Phone JESSICA MANCILLA CP Unavailable Allergies, Adverse Reactions, Alerts Substance [...] due to erectile dysfunction N52.9 Active Assessment Erectile dysfunction N52.9 Active Problem Mild intermittent asthma, uncomplicated J45.20 Active Problem Type 2 diabetes mellitus with unspecified complications E11.8 Active Medications Medication Code System Code Instructions Start Date End Date Status Dosage Gabapentin [facility] [address]-82 100 MG Orally at hs and prn cramping Dec 04, 2014 1 capsule Hydrochlorothiazide [facility] [address]-91 25 MG take 1 tablet by Oral route 1 time per day Geodon [facility] [address]-97 60 MG Orally once a day Dec 12, 2014 1 capsule with food Viagra [facility] [address]-07 100 MG Orally Once a day Mar 11, 2015 1/2- 1 tablet as needed Amlodipine Besylate [facility] 07888630372 10MG TAKE ONE TABLET BY MOUTH ONCE DAILY MetFORMIN HCl ER [facility] 16340087819 500MG TAKE ONE TABLET BY MOUTH TWICE DAILY Eszopiclone [facility] 11697806388 2MG TAKE ONE TABLET BY MOUTH IMMEDIATELY BEFORE BEDTIME Klonopin [facility] [address]-98 1 MG Orally Twice a day Jan 16, 2015 1 tablet Glucometer [facility] 0 Test Strips 3-4 times a day dx-250.00 Nov 11, 2014 dispense as insurance convers. Use as directed Aspirin [facility] [address]-61 81 mg June 19, 2013 chew 1 tablet (81 mg) by oral route once daily Potassium Chloride [facility] [address]-53 10 mEq May 19, 2014 10 mEq by Oral route 1 time per day vocuher copay please Ventolin HFA [facility] [address]-06 108 (90 Base) MCG/ACT Inhalation every 4 hrs prn Nov 20, 2014 2 puffs as needed Clonidine HCl [facility] 03788865368 0.1MG TAKE ONE TABLET BY MOUTH ONCE DAILY Diclofenac Sodium [facility] 38661103259 75MG appt needed for further refills TAKE ONE TABLET BY MOUTH TWICE DAILY NEEDED Blood Glucose Monitoring Suppl [facility] 0 w/Device monitor, strips & lancets Once a day prn as directed DX 250.02 Multivitamin [facility] 88400-09469 June 19, 2013 not defined Celexa [facility] [address]-86 10 MG Orally Once a day Jan 16, 2015 1 tablet Metoprolol Tartrate [facility] [address]-09 50MG TAKE ONE TABLET BY MOUTH TWICE DAILY Benazepril HCl [facility] 45938125767 40MG TAKE ONE TABLET BY MOUTH ONCE DAILY Procedures Procedure Coding System Code Date Office Visit, Est Pt., Level 3 CPT-4 90615 Mar 11, 2015 Vital Signs Date/Time: Mar 11, 2015 Temperature 98.5 F Weight 270.8 lbs Height 68 in BMI 41.17 Index Blood Pressure Diastolic 74 mmHg Blood Pressure Systolic 118 mmHg Cardiac Monitoring Heart Rate 70 bpm Results No Known Results Summary Purpose eClinicalWorks Submission
--- OUTSIDE RECORDS SUMMARY | 2016-08-31 15:13 | XMS REPORT ---
Author Author VERA DOBBS Organization e[employer] Address Unknown Phone Unavailable Care Team Providers Care Relocation Counselor Name Role Phone VERA DOBBS CP Unavailable Allergies No Known Allergies Problems Problem Type Condition Code Onset Dates Condition Status Problem Pain of left hand M79.642 Active Problem Arthritis M19.90 Active Problem Pain in right hand M79.641 Active Problem Erectile dysfunction, unspecified erectile dysfunction type N52.9 Active Problem Generalized anxiety disorder F41.1 Active Problem Hypogonadism, male E29.1 Active Problem Spasms of the hands or feet R25.2 Active Problem Essential hypertension I10 Active Problem Major depression F32.9 Active Problem Tremor R25.1 Active Problem Impotence due to erectile dysfunction N52.9 Active Problem Type 2 diabetes mellitus with unspecified complications E11.8 Active Problem Leg pain, bilateral M79.604 Active Problem Tooth infection K04.7 Active Problem Mild intermittent asthma, uncomplicated J45.20 Active Problem Mood disorder F39 Active Problem Essential (primary) hypertension I10 Active Problem Mixed hyperlipidemia E78.2 Active Medications Medication Code System Code Instructions Start Date End Date Status Dosage Klonopin [facility] [address]-97 1 MG Orally Twice a day Jan 16, 2015 1 tablet Results No Known Results Summary Purpose eClinicalWorks Submission
--- OUTSIDE RECORDS SUMMARY | 2016-08-31 15:13 | XMS REPORT ---
Author Author VERA DOBBS [facility] eClinicalWorks Address Unknown Phone Unavailable Care Team Providers Care Technology Adoption Manager Name Role Phone VERA DOBBS CP Unavailable Allergies No Known Allergies Problems Problem Type Condition Code Onset Dates Condition Status Assessment Major depression F32.9 Active Problem Leg pain, bilateral M79.604 Active Problem Essential (primary) hypertension I10 Active Problem Tooth infection K04.7 Active Problem Impotence due to erectile dysfunction N52.9 Active Assessment Generalized anxiety disorder F41.1 Active Problem Mild intermittent asthma, uncomplicated J45.20 Active Problem Type 2 diabetes mellitus with unspecified complications E11.8 Active Medications Medication Code System Code Instructions Start Date End Date Status Dosage Viagra [facility] [address]-53 100 MG Orally Once a day Mar 11, 2015 1/2- 1 tablet as needed Diclofenac Sodium [facility] 28978074961 75MG appt needed for further refills TAKE ONE TABLET BY MOUTH TWICE DAILY NEEDED Clonidine HCl [facility] 70204850865 0.1MG TAKE ONE TABLET BY MOUTH ONCE DAILY Metoprolol Tartrate [facility] [address]-58 50MG TAKE ONE TABLET BY MOUTH TWICE DAILY Multivitamin [facility] 36[address]-82293 June 19, 2013 not defined Lunesta [facility] [address]-61 2 MG Orally Once a day Mar 11, 2015 1 tablet immediately before bedtime Geodon [facility] [address]-53 60 MG Orally once a day Dec 12, 2014 1 capsule with food Klonopin [facility] [address]-97 1 MG Orally Twice a day Jan 16, 2015 1 tablet Hydrochlorothiazide [facility] [address]-89 25 MG take 1 tablet by Oral route 1 time per day Glucometer [facility] 0 Test Strips 3-4 times a day dx-250.00 Nov 11, 2014 dispense as insurance convers. Use as directed Eszopiclone [facility] 35846172036 2MG TAKE ONE TABLET BY MOUTH IMMEDIATELY BEFORE BEDTIME Potassium Chloride [facility] [address]-53 10 mEq May 19, 2014 10 mEq by Oral route 1 time per day vocuher copay please Benazepril HCl [facility] 87633491518 40MG TAKE ONE TABLET BY MOUTH ONCE DAILY Gabapentin [facility] [address]-11 100 MG Orally at hs and prn cramping Dec 04, 2014 1 capsule MetFORMIN HCl ER [facility] 84667971239 500MG TAKE ONE TABLET BY MOUTH TWICE DAILY Aspirin [facility] [address]-59 81 mg June 19, 2013 chew 1 tablet (81 mg) by oral route once daily Celexa [facility] [address]-81 20 MG Orally Once a day Mar 11, 2015 1 tablet Ventolin HFA [facility] [address]-58 108 (90 Base) MCG/ACT Inhalation every 4 hrs prn Nov 20, 2014 2 puffs as needed Blood Glucose Monitoring Suppl [facility] 0 w/Device monitor, strips & lancets Once a day prn as directed DX 250.02 Amlodipine Besylate [facility] 63851609781 10MG TAKE ONE TABLET BY MOUTH ONCE DAILY Procedures Procedure Coding System Code Date Office Visit, Est Pt., Level 3 CPT-4 91598 Mar 11, 2015 Vital Signs Date/Time: Mar 11, 2015 Cardiac Monitoring Heart Rate 68 bpm Weight 270.5 lbs Height 68 in BMI 41.12 Index Blood Pressure Diastolic 70 mmHg Blood Pressure Systolic 120 mmHg Results No Known Results Summary Purpose eClinicalWorks Submission
--- OUTSIDE RECORDS SUMMARY | 2016-08-31 15:13 | XMS REPORT ---
Author Author JESSICA MANCILLA [facility] eClinicalWorks Address Unknown Phone Unavailable Care Team Providers Care Intervention Nurse Name Role Phone JESSICA MANCILLA CP Unavailable Allergies No Known Allergies Problems Problem Type Condition Code Onset Dates Condition Status Problem Impotence due to erectile dysfunction N52.9 Active Problem Mild intermittent asthma, uncomplicated J45.20 Active Problem Type 2 diabetes mellitus with unspecified complications E11.8 Active Problem Pain of left hand M79.642 Active Problem Mixed hyperlipidemia E78.2 Active Problem Pain in right hand M79.641 Active Problem Leg pain, bilateral M79.604 Active Problem Essential (primary) hypertension I10 Active Problem Mood disorder F39 Active Problem Tooth infection K04.7 Active Medications Medication Code System Code Instructions Start Date End Date Status Dosage Potassium Chloride [facility] [address]-72 10 mEq Orally three times weekly May 19, 2014 10 mEq by Results No Known Results Summary Purpose eClinicalWorks Submission
--- OUTSIDE RECORDS SUMMARY | 2016-08-31 15:14 | XMS REPORT ---
Author Author JESSICA MANCILLA Organization eClinicalWorks Address Unknown Phone Unavailable Care Team Providers Care Tripe Scraper Name Role Phone JESSICA MANCILLA CP Unavailable [...] diabetes mellitus with unspecified complications E11.8 Active Assessment Hypogonadism, male E29.1 Active Problem Leg pain, bilateral M79.604 Active Problem Tooth infection K04.7 Active Problem Mild intermittent asthma, uncomplicated J45.20 Active Problem Mood disorder F39 Active Problem Essential (primary) hypertension I10 Active Problem Mixed hyperlipidemia E78.2 Active Medications No Known Medications Procedures Procedure Coding System Code Date THER/PROPH/DIAG INJ, SC/IM CPT-4 67027 Jan 20, 2016 TESTOSTERONE (PT'S OWN) CPT-4 26327 Jan 20, 2016 Results No Known Results Summary Purpose eClinicalWorks Submission
--- OUTSIDE RECORDS SUMMARY | 2016-08-31 15:14 | XMS REPORT ---
Author Author VERA DOBBS [facility] eClinicalWorks Address Unknown Phone Unavailable Care Team Providers Care Can Pusher Name Role Phone VERA DOBBS CP Unavailable Allergies, Adverse Reactions, Alerts Substance Reaction Event Type Sulfamethoxazole anaphylaxis Drug Allergy Sodium Polystyrene Sulfonate nausea, vomiting Drug Allergy Penicillin V Potassium anaphylaxis Drug Allergy Hydrocodone-Acetaminophen headache Drug Allergy Problems Problem Type Condition ICD-9 Code Onset Dates Condition Status Problem Pain in joint, pelvic region and thigh 719.45 Active Problem Edema 782.3 Active Problem Pain in joint, lower leg 719.46 Active Problem Depressive disorder, not elsewhere classified 311 Active Problem Umbilical hernia with obstruction 552.1 Active Problem Anxiety state, unspecified 300.00 Active Assessment Depressive disorder, not elsewhere classified 311 Active Assessment Anxiety state, unspecified 300.00 Active Problem Diabetes 250.00 Active Problem Essential hypertension, benign 401.1 Active Problem Insomnia, unspecified 780.52 Active Problem Other and unspecified hyperlipidemia 272.4 Active Problem Acute bronchitis 466.0 Active Problem Other dyspnea and respiratory abnormalities 786.09 Active Problem Contact dermatitis and other eczema, due to unspecified cause 692.9 Active Problem Impaired fasting glucose 790.21 Active Problem Screening for hypertension V81.1 Active Problem Abnormal weight gain 783.1 Active Problem Impotence of organic origin 607.84 Active Problem Unspecified orchitis and epididymitis 604.90 Active Problem Other malaise and fatigue 780.79 Active Problem Obesity, unspecified 278.00 Active Problem Unspecified testicular dysfunction 257.9 Active Medications Medication Code System Code Instructions Start Date End Date Status Dosage Mirtazapine [facility] [address]-15 30 MG Orally Once a day Oct 24, 2014 1 tablet before bedtime in the evening Pravachol [facility] [address]-69 40 mg Mar 20, 2014 take 1 tablet by Oral route 1 time per day Lipids due in Oct cyclobenzaprine [facility] [address]-57 10 mg Feb 26, 2014 1 tablet 1 time per day PRN MetFORMIN HCl ER [facility] 93832728358 500MG TAKE ONE TABLET BY MOUTH ONCE DAILY Clonidine HCl [facility] [address]-21 0.1 mg Apr 21, 2014 0.5 tablet by Oral route 2 times per day Metoprolol Tartrate [facility] 22997425362 50MG TAKE ONE TABLET BY MOUTH TWICE DAILY Trileptal [facility] [address]-64 600 MG Orally twice a day Oct 24, 2014 1 tablet Multivitamin [facility] 52892-[address]186 June 19, 2013 not defined Norvasc [facility] [address]-21 10 mg Feb 26, 2014 1 tablet by Oral route 1 time per day Hydrochlorothiazide [facility] [address]-67 25 mg Feb 26, 2014 take 1 tablet by Oral route 1 time per day Benazepril HCl [facility] 98841308857 40MG TAKE ONE TABLET BY MOUTH ONCE DAILY Potassium Chloride [facility] [address]-69 10 mEq May 19, 2014 10 mEq by Oral route 1 time per day vocuher copay please Amlodipine Besylate [facility] 66293216545 10MG TAKE ONE TABLET BY MOUTH ONCE DAILY Aspirin [facility] [address]-22 81 mg June 19, 2013 chew 1 tablet (81 mg) by oral route once daily Diclofenac Sodium [facility] 49558642779 75MG TAKE ONE TABLET BY MOUTH TWICE DAILY NEEDED Eszopiclone [facility] [address]-55 2 MG Orally Once daily immediately before bedtime August 07, 2014 1 tablet Procedures Procedure Coding System Code Date Office Visit, Est Pt., Level 3 CPT-4 65625 Oct 24, 2014 Vital Signs Date/Time: Oct 24, 2014 Temperature 98.0 F Weight 280.7 lbs Height 68 in BMI 42.68 Index Blood Pressure Diastolic 82 mmHg Blood Pressure Systolic 134 mmHg Cardiac Monitoring Heart Rate 68 bpm Results No Known Results Summary Purpose eClinicalWorks Submission
--- OUTSIDE RECORDS SUMMARY | 2016-08-31 15:14 | XMS REPORT ---
Author Author ANA DUKE [facility] eClinicalWorks Address Unknown Phone Unavailable Care Team Providers Care Skin Diving Teacher Name Role Phone ANA DUKE CP Unavailable [...] due to erectile dysfunction N52.9 Active Assessment Depression F32.9 Active Problem Mild intermittent asthma, uncomplicated J45.20 Active Problem Type 2 diabetes mellitus with unspecified complications E11.8 Active Medications No Known Medications Procedures Procedure Coding System Code Date Psychotherapy, patient &/family, 45 minutes, established patient CPT-4 65139 Jan 02, 2015 Results No Known Results Summary Purpose eClinicalWorks Submission
--- OUTSIDE RECORDS SUMMARY | 2016-08-31 15:14 | XMS REPORT ---
Author Author JESSICA MANCILLA Organization eClinicalWorks Address Unknown Phone Unavailable Care Team Providers Care Tubular Stock Glass Bulb Machine Former Name Role Phone JESSICA MANCILLA CP Unavailable [...] Instructions Start Date End Date Status Dosage Diclofenac Sodium [facility] 01193372905 75MG appt needed for further refills TAKE ONE TABLET BY MOUTH TWICE DAILY NEEDED Results No Known Results Summary Purpose eClinicalWorks Submission
--- OUTSIDE RECORDS SUMMARY | 2016-08-31 15:14 | XMS REPORT ---
Author Author GENNY PAGAN [facility] eClinicalWorks Address Unknown Phone Unavailable Care Team Providers Care Room Service Associate Name Role Phone GENNY PAGAN CP Unavailable Allergies, Adverse Reactions, Alerts Substance Reaction Event Type Sulfamethoxazole anaphylaxis Drug Allergy Sodium Polystyrene Sulfonate nausea, vomiting Drug Allergy Remeron bad nightmares Drug Allergy Penicillin V Potassium anaphylaxis Drug Allergy Hydrocodone-Acetaminophen headache Drug Allergy Problems Problem Type Condition Code Onset Dates Condition Status Assessment Dental caries K02.9 Active Problem Leg pain, bilateral M79.604 Active Problem Essential (primary) hypertension I10 Active Problem Tooth infection K04.7 Active Problem Impotence due to erectile dysfunction N52.9 Active Assessment Dental examination Z01.20 Active Problem Mild intermittent asthma, uncomplicated J45.20 Active Problem Type 2 diabetes mellitus with unspecified complications E11.8 Active Medications Medication Code System Code Instructions Start Date End Date Status Dosage Geodon [facility] [address]-91 60 MG Orally once a day Dec 12, 2014 1 capsule with food Hydrochlorothiazide [facility] [address]-83 25 MG take 1 tablet by Oral route 1 time per day Diclofenac Sodium [facility] 28420291363 75MG TAKE ONE TABLET BY MOUTH TWICE DAILY NEEDED Gabapentin [facility] [address]-99 100 MG Orally at hs and prn cramping Dec 04, 2014 1 capsule Ventolin HFA [facility] [address]-98 108 (90 Base) MCG/ACT Inhalation every 4 hrs prn Nov 20, 2014 2 puffs as needed Eszopiclone [facility] 58417604020 2MG TAKE ONE TABLET BY MOUTH IMMEDIATELY BEFORE BEDTIME Clonidine HCl [facility] 55157648165 0.1MG TAKE ONE TABLET BY MOUTH ONCE DAILY MetFORMIN HCl ER [facility] 06015845839 500MG Orally 2 times a day 1 tablet Aspirin [facility] [address]-43 81 mg June 19, 2013 chew 1 tablet (81 mg) by oral route once daily Potassium Chloride [facility] [address]-15 10 mEq May 19, 2014 10 mEq by Oral route 1 time per day vocuher copay please Benazepril HCl [facility] 47873518345 40MG TAKE ONE TABLET BY MOUTH ONCE DAILY Keflex [facility] [address]-05 500 MG Orally 3 times a day Dec 23, 2014 Dec 30, 2014 1 capsule Celexa [facility] [address]-68 10 MG Orally Once a day Dec 24, 2014 0.5 tablet Amlodipine Besylate [facility] 78501376325 10MG TAKE ONE TABLET BY MOUTH ONCE DAILY Multivitamin [facility] 787[address]-93271 June 19, 2013 not defined Metoprolol Tartrate [facility] 14324702553 50MG TAKE ONE TABLET BY MOUTH TWICE DAILY Blood Glucose Monitoring Suppl [facility] 0 w/Device monitor, strips & lancets Once a day prn as directed DX 250.02 Procedures Procedure Coding System Code Date EXTRAC ERUPTED TOOTH/EXPOSED ROOT CPT-4 D7140 Dec 29, 2014 INTRAORL-PERIAPICAL 1 FILM 24741 CPT-4 D0220 Dec 29, 2014 LTD ORAL EVALUATION - PROBLEM FOCUS CPT-4 D0140 Dec 29, 2014 Vital Signs Date/Time: Dec 29, 2014 Blood Pressure Diastolic 82 mmHg Blood Pressure Systolic 124 mmHg Height 68 in Results No Known Results Summary Purpose eClinicalWorks Submission
--- OUTSIDE RECORDS SUMMARY | 2016-08-31 15:14 | XMS REPORT ---
Author Author JESSICA MANCILLA [facility] eClinicalWorks Address Unknown Phone Unavailable Care Team Providers Care Manager Digital Name Role Phone JESSICA MANCILLA CP Unavailable [...] Instructions Start Date End Date Status Dosage Clonidine HCl [facility] 94344099874 0.1MG TAKE ONE TABLET BY MOUTH ONCE DAILY Results No Known Results Summary Purpose eClinicalWorks Submission
--- OUTSIDE RECORDS SUMMARY | 2016-08-31 15:14 | XMS REPORT ---
Author Author BRANDON WALKER [facility] eClinicalWorks Address Unknown Phone Unavailable Care Team Providers Care Enterprise Cloud Architect Name Role Phone BRANDON WALKER Unavailable Allergies, Adverse Reactions, Alerts Substance Reaction [...] mellitus with unspecified complications E11.8 Active Assessment Itchy eyes H57.8 Active Problem Pain of left hand M79.642 Active Problem Mixed hyperlipidemia E78.2 Active Problem Pain in right hand M79.641 Active Problem Leg pain, bilateral M79.604 Active Problem Essential (primary) hypertension I10 Active Problem Mood disorder F39 Active Problem Tooth infection K04.7 Active Medications Medication Code System Code Instructions Start Date End Date Status Dosage Hydrochlorothiazide [facility] [address]-03 25MG TAKE ONE TABLET BY MOUTH ONCE DAILY Celexa [facility] [address]-12 20 MG Orally Once a day Mar 11, 2015 1 tablet Geodon [facility] [address]-24 60 MG Orally once a day Dec 12, 2014 1 capsule with food Aspirin [facility] [address]-06 81 mg June 19, 2013 chew 1 tablet (81 mg) by oral route once daily Metoprolol Tartrate [facility] [address]-75 50MG TAKE ONE TABLET BY MOUTH TWICE DAILY Gabapentin [facility] 02696421153 100 MG 1 capsule at hs and prn cramping Orally 30 day(s) Ventolin HFA [facility] [address]-27 108 (90 Base) MCG/ACT Inhalation every 4 hrs prn Nov 20, 2014 2 puffs as needed Benazepril HCl [facility] 39747485439 40MG TAKE ONE TABLET BY MOUTH ONCE DAILY Clear Eyes Seasonal Relief [facility] 97[address]83 0.012-0.2-0.25 % Ophthalmic prn June 11, 2015 June 16, 2015 Instill 2 gtts Klonopin [facility] [address]-49 1 MG Orally Twice a day Jan 16, 2015 1 tablet Viagra [facility] [address]-68 100 MG Orally Once a day Mar 11, 2015 1/2- 1 tablet as needed Diclofenac Sodium [facility] 55715133280 75MG DR TAKE ONE TABLET BY MOUTH TWICE DAILY Clonidine HCl [facility] 18754350897 0.1MG TAKE ONE TABLET BY MOUTH ONCE DAILY Benztropine Mesylate [facility] [address]-37 0.5 MG Orally Once a day Apr 15, 2015 1 tablet at bedtime Lunesta [facility] [address]-90 2 MG Orally Once a day Mar 11, 2015 1 tablet immediately before bedtime Glucometer [facility] 0 Test Strips 3-4 times a day dx-250.00 Nov 11, 2014 dispense as insurance convers. Use as directed MetFORMIN HCl ER [facility] 95335765147 500MG TAKE ONE TABLET BY MOUTH TWICE DAILY Potassium Chloride [facility] [address]-97 10 mEq May 19, 2014 10 mEq by Oral route 1 time per day vocuher copay please Amlodipine Besylate [facility] 30821489883 10MG TAKE ONE TABLET BY MOUTH ONCE DAILY Blood Glucose Monitoring Suppl [facility] 0 w/Device monitor, strips & lancets Once a day prn as directed DX 250.02 Multivitamin [facility] [address] June 19, 2013 not defined Procedures Procedure Coding System Code Date Office Visit, Est Pt., Level 2 CPT-4 94813 June 11, 2015 Vital Signs Date/Time: June 11, 2015 Temperature 97.7 F Weight 260.4 lbs Height 68 in BMI 39.59 Index Blood Pressure Diastolic 70 mmHg Blood Pressure Systolic 110 mmHg Cardiac Monitoring Heart Rate 62 bpm Results No Known Results Summary Purpose eClinicalWorks Submission
--- OUTSIDE RECORDS SUMMARY | 2016-08-31 15:14 | XMS REPORT ---
Author Author DAYDAY GE [facility] eClinicalWorks Address Unknown Phone Unavailable Care Team Providers Care Chemical Inspector Name Role Phone DAYDAY GE Unavailable Allergies No Known Allergies Problems Problem Type Condition Code Onset Dates Condition Status Problem Leg pain, bilateral M79.604 Active Problem Mood disorder F39 Active Problem Tooth infection K04.7 Active Problem Spasms of the hands or feet R25.2 Active Problem Essential hypertension I10 Active Problem Tremor R25.1 Active Problem Pain of left hand M79.642 Active Problem Mixed hyperlipidemia E78.2 Active Problem Arthritis M19.90 Active Problem Pain in right hand M79.641 Active Problem Impotence due to erectile dysfunction N52.9 Active Problem Type 2 diabetes mellitus with unspecified complications E11.8 Active Problem Mild intermittent asthma, uncomplicated J45.20 Active Assessment Mood disorder F39 Active Problem Essential (primary) hypertension I10 Active Medications No Known Medications Procedures Procedure Coding System Code Date Psychotherapy, patient &/family, 30 minutes, established patient CPT-4 07824 Dec 11, 2015 [facility] VISIT MENTAL HEALTH ESTAB PT CPT-4 G0470 Dec 11, 2015 Results No Known Results Summary Purpose eClinicalWorks Submission
--- OUTSIDE RECORDS SUMMARY | 2016-08-31 15:14 | XMS REPORT ---
Author Author JESSICA MANCILLA [facility] eClinicalWorks Address Unknown Phone Unavailable Care Team Providers Care Siding Installer Name Role Phone JESSICA MANCILLA CP Unavailable [...] Mild intermittent asthma, uncomplicated J45.20 Active Problem Essential (primary) hypertension I10 Active Medications Medication Code System Code Instructions Start Date End Date Status Dosage Klonopin [facility] [address]-38 1 MG Orally Twice a day Jan 16, 2015 1 tablet Results No Known Results Immunizations Vaccine Administration Date FLUARIX QUAD P-FREE 3 AND UP .50 2015Dec 09, 2015 Summary Purpose eClinicalWorks Submission
--- OUTSIDE RECORDS SUMMARY | 2016-08-31 15:14 | XMS REPORT ---
Author Author JESSICA MANCILLA Organization eClinicalWorks Address Unknown Phone Unavailable Care Team Providers Care Chicken And Fish Butcher Name Role Phone JESSICA MANCILLA CP Unavailable Allergies No Known Allergies Problems Problem Type Condition ICD-9 Code Onset Dates Condition Status Problem Unspecified orchitis and epididymitis 604.90 Active Problem Edema 782.3 Active Problem Impotence of organic origin 607.84 Active Problem Umbilical hernia with obstruction 552.1 Active Problem HTN (hypertension) 401.9 Active Problem Depressive disorder, not elsewhere classified 311 Active Problem Diabetes mellitus 250.00 Active Problem Essential hypertension, benign 401.1 Active Problem Insomnia, unspecified 780.52 Active Problem Anxiety state, unspecified 300.00 Active Problem Other and unspecified hyperlipidemia 272.4 Active Medications No Known Medications Results No Known Results Summary Purpose eClinicalWorks Submission
--- OUTSIDE RECORDS SUMMARY | 2016-08-31 15:15 | XMS REPORT ---
Author Author VERA DOBBS [facility] eClinicalWorks Address Unknown Phone Unavailable Care Team Providers Care Underwater Trapper Name Role Phone VERA DOBBS CP Unavailable [...] Date End Date Status Dosage Hydrochlorothiazide [facility] [address]-51 25 MG take 1 tablet by Oral route 1 time per day Gabapentin [facility] [address]-16 100 MG Orally at hs and prn cramping Dec 04, 2014 1 capsule Ventolin HFA [facility] [address]-31 108 (90 Base) MCG/ACT Inhalation every 4 hrs prn Nov 20, 2014 2 puffs as needed Aspirin [facility] [address]-03 81 mg June 19, 2013 chew 1 tablet (81 mg) by oral route once daily Amlodipine Besylate [facility] 94036805305 10MG TAKE ONE TABLET BY MOUTH ONCE DAILY Metoprolol Tartrate [facility] [address]-71 50MG TAKE ONE TABLET BY MOUTH TWICE DAILY Multivitamin [facility] 23845-65880 June 19, 2013 not defined MetFORMIN HCl ER [facility] 62058935021 500MG Orally 2 times a day 1 tablet Celexa [facility] [address]-99 10 MG Orally Once a day Jan 16, 2015 1 tablet Benazepril HCl [facility] 69263653860 40MG TAKE ONE TABLET BY MOUTH ONCE DAILY Potassium Chloride [facility] [address]-48 10 mEq May 19, 2014 10 mEq by Oral route 1 time per day vocuher copay please Clonidine HCl [facility] [address]-17 0.1MG TAKE ONE TABLET BY MOUTH ONCE DAILY Geodon [facility] [address]-15 60 MG Orally once a day Dec 12, 2014 1 capsule with food Glucometer NDC 0 Test Strips 3-4 times a day dx-250.00 Nov 11, 2014 dispense as insurance convers. Use as directed Diclofenac Sodium [facility] 29067057986 75MG TAKE ONE TABLET BY MOUTH TWICE DAILY NEEDED Blood Glucose Monitoring Suppl [facility] 0 w/Device monitor, strips & lancets Once a day prn as directed DX 250.02 Klonopin [facility] [address]-26 1 MG Orally Twice a day Jan 16, 2015 1 tablet Procedures Procedure Coding System Code Date Office Visit, Est Pt., Level 3 CPT-4 58202 Jan 16, 2015 Vital Signs Date/Time: Jan 16, 2015 Blood Pressure Systolic 118 mmHg Weight 274.8 lbs Height 68 in BMI 41.78 Index Blood Pressure Diastolic 72 mmHg Results No Known Results Summary Purpose eClinicalWorks Submission
--- OUTSIDE RECORDS SUMMARY | 2016-08-31 15:15 | XMS REPORT ---
Author Author JESSICA MANCILLA [facility] eClinicalWorks Address Unknown Phone Unavailable Care Team Providers Care Internet Assessor Name Role Phone JESSICA MANCILLA CP Unavailable [...] complications E11.8 Active Medications No Known Medications Results No Known Results Summary Purpose eClinicalWorks Submission
--- OUTSIDE RECORDS SUMMARY | 2016-08-31 15:15 | XMS REPORT ---
Author Author JESSICA MANCILLA [facility] eClinicalWorks Address Unknown Phone Unavailable Care Team Providers Care Language Assistant Name Role Phone JESSICA MANCILLA CP Unavailable [...] hypertension I10 Active Medications No Known Medications Results No Known Results Summary Purpose eClinicalWorks Submission
--- OUTSIDE RECORDS SUMMARY | 2016-08-31 15:15 | XMS REPORT ---
Author Author DAYDAY GE [facility] eClinicalWorks Address Unknown Phone Unavailable Care Team Providers Care Proof Technician Helper Name Role Phone DAYDAY GE Unavailable Allergies [...] patient &/family, 30 minutes, established patient CPT-4 04100 Oct 02, 2015 [facility] VISIT MENTAL HEALTH ESTAB PT CPT-4 G0470 Oct 02, 2015 Results No Known Results Summary Purpose eClinicalWorks Submission
--- OUTSIDE RECORDS SUMMARY | 2016-08-31 15:15 | XMS REPORT ---
Author Author JESSICA MANCILLA Organization eClinicalWorks Address Unknown Phone Unavailable Care Team Providers Care Industrial Eng Name Role Phone JESSICA MANCILLA CP Unavailable [...] Instructions Start Date End Date Status Dosage Depo-Testosterone [facility] [address]-97 200 MG/ML Intramuscular once monthly for 2 months then office visit before third injection Jan 08, 2016 1 ml Results No Known Results Summary Purpose eClinicalWorks Submission
--- OUTSIDE RECORDS SUMMARY | 2016-08-31 15:15 | XMS REPORT ---
Author MARLINE Campos [facility] eClinicalWorks Address Unknown Phone Unavailable Care Team Providers Care Extractor Operator Solvent Process Name Role Phone MARLINE VERA CP Unavailable Allergies No Known Allergies Problems [...]
--- OUTSIDE RECORDS SUMMARY | 2016-08-31 15:15 | XMS REPORT ---
Author Author JESSICA MANCILLA [facility] eClinicalWorks Address Unknown Phone Unavailable Care Team Providers Care Body Shop Worker Name Role Phone JESSICA MANCILLA CP Unavailable [...] Date End Date Status Dosage Clonidine HCl [facility] 57324153638 0.1MG TAKE ONE TABLET BY MOUTH ONCE DAILY Results No Known Results Summary Purpose eClinicalWorks Submission
--- OUTSIDE RECORDS SUMMARY | 2016-08-31 15:15 | XMS REPORT ---
Author Author VERA DOBBS [facility] eClinicalWorks Address Unknown Phone Unavailable Care Team Providers Care Philosophy Faculty Name Role Phone VERA DOBBS CP Unavailable Allergies, Adverse Reactions, Alerts Substance Reaction Event Type Sulfamethoxazole anaphylaxis Drug Allergy Sodium Polystyrene Sulfonate nausea, vomiting Drug Allergy Remeron bad nightmares Drug Allergy Penicillin V Potassium anaphylaxis Drug Allergy Hydrocodone-Acetaminophen headache Drug Allergy Problems Problem Type Condition Code Onset Dates Condition Status Assessment Generalized anxiety disorder F41.1 Active Problem Leg pain, bilateral M79.604 Active Problem Essential (primary) hypertension I10 Active Problem Tooth infection K04.7 Active Problem Impotence due to erectile dysfunction N52.9 Active Assessment Major depression F32.9 Active Problem Mild intermittent asthma, uncomplicated J45.20 Active Problem Type 2 diabetes mellitus with unspecified complications E11.8 Active Medications Medication Code System Code Instructions Start Date End Date Status Dosage Glucometer [facility] 0 Test Strips 3-4 times a day dx-250.00 Nov 11, 2014 dispense as insurance convers. Use as directed Diclofenac Sodium [facility] 63989692664 75MG TAKE ONE TABLET BY MOUTH TWICE DAILY NEEDED cyclobenzaprine [facility] [address]-23 10 mg PRN Feb 26, 2014 1 tablet 1 time per day PRN Clonidine HCl [facility] 84718723842 0.1MG TAKE ONE TABLET BY MOUTH ONCE DAILY Hydrochlorothiazide [facility] 01544841173 25 mg take 1 tablet by Oral route 1 time per day Blood Glucose Monitoring Suppl [facility] 0 w/Device monitor, strips & lancets Once a day prn as directed DX 250.02 Eszopiclone [facility] 86579864829 2MG TAKE ONE TABLET BY MOUTH IMMEDIATELY BEFORE BEDTIME Amlodipine Besylate [facility] 27419629060 10MG TAKE ONE TABLET BY MOUTH ONCE DAILY Benazepril HCl [facility] 80730673543 40MG TAKE ONE TABLET BY MOUTH ONCE DAILY Keflex [facility] [address]-89 500 MG Orally 3 times a day Dec 04, 2014 Dec 14, 2014 1 capsule Geodon NDC [address]-55 60 MG Orally once a day Dec 12, 2014 1 capsule with food Ventolin HFA [facility] [address]-10 108 (90 Base) MCG/ACT Inhalation every 4 hrs prn Nov 20, 2014 2 puffs as needed MetFORMIN HCl ER [facility] 56934590101 500MG Orally 2 times a day 1 tablet Multivitamin [facility] 932[address]94 June 19, 2013 not defined Aspirin [facility] [address]-74 81 mg June 19, 2013 chew 1 tablet (81 mg) by oral route once daily Metoprolol Tartrate [facility] 18067834808 50MG TAKE ONE TABLET BY MOUTH TWICE DAILY Potassium Chloride [facility] [address]-10 10 mEq May 19, 2014 10 mEq by Oral route 1 time per day vocuher copay please Gabapentin [facility] [address]-37 100 MG Orally at hs and prn cramping Dec 04, 2014 1 capsule Procedures Procedure Coding System Code Date Office Visit, Est Pt., Level 3 CPT-4 71103 Dec 12, 2014 Vital Signs Date/Time: Dec 12, 2014 Temperature 97.4 F Weight 280.0 lbs Height 68 in BMI 42.57 Index Blood Pressure Diastolic 66 mmHg Blood Pressure Systolic 108 mmHg Cardiac Monitoring Heart Rate 68 bpm Results No Known Results Summary Purpose eClinicalWorks Submission
--- OUTSIDE RECORDS SUMMARY | 2016-08-31 15:15 | XMS REPORT ---
Author Author BRANDON WALKER [facility] eClinicalWorks Address Unknown Phone Unavailable Care Team Providers Care Robot Designer Name Role Phone BRANDON WALKER CP Unavailable Allergies, Adverse Reactions, Alerts Substance [...] due to erectile dysfunction N52.9 Active Assessment Frontal sinusitis J32.1 Active Problem Mild intermittent asthma, uncomplicated J45.20 Active Problem Type 2 diabetes mellitus with unspecified complications E11.8 Active Medications Medication Code System Code Instructions Start Date End Date Status Dosage Klonopin [facility] [address]-83 1 MG Orally Twice a day Jan 16, 2015 1 tablet Hydrochlorothiazide [facility] [address]-07 25 MG take 1 tablet by Oral route 1 time per day MetFORMIN HCl ER [facility] 14173916681 500MG TAKE ONE TABLET BY MOUTH TWICE DAILY Blood Glucose Monitoring Suppl [facility] 0 w/Device monitor, strips & lancets Once a day prn as directed DX 250.02 Gabapentin [facility] [address]-82 100 MG 1 capsule at hs and prn cramping Orally 30 day(s) Glucometer [place] 0 Test Strips 3-4 times a day dx-250.00 Nov 11, 2014 dispense as insurance convers. Use as directed Geodon [facility] [address]-02 60 MG Orally once a day Dec 12, 2014 1 capsule with food Metoprolol Tartrate [facility] [address]-21 50MG TAKE ONE TABLET BY MOUTH TWICE DAILY Benazepril HCl [facility] [address]-07 40MG TAKE ONE TABLET BY MOUTH ONCE DAILY Potassium Chloride [facility] [address]-61 10 mEq May 19, 2014 10 mEq by Oral route 1 time per day vocuher copay please Clonidine HCl [facility] 31171680044 0.1MG TAKE ONE TABLET BY MOUTH ONCE DAILY Amlodipine Besylate [facility] [address]-84 10MG TAKE ONE TABLET BY MOUTH ONCE DAILY Claritin [facility] [address]-65 10 MG Orally Once a day Apr 10, 2015 Apr 24, 2015 1 tablet Tessalon Perles [facility] [address]-60 100 MG Orally 2 times a day, prn cough Apr 10, 2015 Apr 17, 2015 1 capsule as needed Viagra [facility] [address]-51 100 MG Orally Once a day Mar 11, 2015 1/2- 1 tablet as needed Diclofenac Sodium [facility] 77393983840 75MG appt needed for further refills TAKE ONE TABLET BY MOUTH TWICE DAILY NEEDED Eszopiclone [facility] 59541907360 2MG TAKE ONE TABLET BY MOUTH IMMEDIATELY BEFORE BEDTIME Lunesta [facility] [address]-30 2 MG Orally Once a day Mar 11, 2015 1 tablet immediately before bedtime Multivitamin [facility] [address]6548 June 19, 2013 not defined Celexa [facility] [address]-62 20 MG Orally Once a day Mar 11, 2015 1 tablet Aspirin [facility] [address]-89 81 mg June 19, 2013 chew 1 tablet (81 mg) by oral route once daily Nasonex [facility] [address]-11 50 MCG/ACT Nasally Once a day Apr 10, 2015 2 sprays in each nostril Procedures Procedure Coding System Code Date Office Visit, Est Pt., Level 3 CPT-4 94792 Apr 10, 2015 Vital Signs Date/Time: Apr 10, 2015 Temperature 99.9 F Weight 263.6 lbs Height 68 in BMI 40.08 Index Blood Pressure Diastolic 76 mmHg Blood Pressure Systolic 122 mmHg Cardiac Monitoring Heart Rate 72 bpm Results No Known Results Summary Purpose eClinicalWorks Submission
--- OUTSIDE RECORDS SUMMARY | 2016-08-31 15:15 | XMS REPORT ---
Author Author JESSICA MANCILLA Organization [facility] Address [address] [place] [address] Care Team Providers Care Hardening Machine Operator Name Role Phone JESSICA MANCILLA Unavailable PROBLEMS Type Condition ICD9-CM Code ZQT59-CA Code Onset Dates Condition Status SNOMED Code Problem Mixed hyperlipidemia E78.2 Active 768830985 Problem Pain in right hand M79.641 Active 53613581 Problem Pain of left hand M79.642 Active 405186977287634 Problem Generalized anxiety disorder F41.1 Active 36001269 Problem Major depression F32.9 Active 644738004 Problem Essential hypertension I10 Active 22376702 Problem Arthritis M19.90 Active 7619488 Problem Tremor R25.1 Active 04652138 Problem Spasms of the hands or feet R25.2 Active 28563357 Problem Impotence due to erectile dysfunction N52.9 Active 805332840 Problem Essential (primary) hypertension I10 Active 13251020 Problem Leg pain, bilateral M79.604 Active 99831510 Problem Type 2 diabetes mellitus with unspecified complications E11.8 Active 27732023 Problem Tooth infection K04.7 Active 872913168 Problem Mild intermittent asthma, uncomplicated J45.20 Active 607751606 Problem Mood disorder F39 Active 32653439 ALLERGIES Unknown Allergies SOCIAL HISTORY No smoking Hx information available PLAN OF CARE VITAL SIGNS MEDICATIONS Medication Instructions Dosage Frequency Start Date End Date Duration Status Clonidine HCl 0.1MG TAKE ONE TABLET BY MOUTH ONCE DAILY 30 Active RESULTS No Results PROCEDURES No Known procedures IMMUNIZATIONS No Known Immunizations
--- OUTSIDE RECORDS SUMMARY | 2016-08-31 15:16 | XMS REPORT ---
Author Author VERA DOBBS [facility] eClinicalWorks Address Unknown Phone Unavailable Care Team Providers Care Director Of Mechanical Engineering Name Role Phone VERA DOBBS CP Unavailable Allergies, Adverse Reactions, Alerts Substance Reaction Event Type Sulfamethoxazole anaphylaxis Drug Allergy Sodium Polystyrene Sulfonate nausea, vomiting Drug Allergy Remeron bad nightmares Drug Allergy Penicillin V Potassium anaphylaxis Drug Allergy Hydrocodone-Acetaminophen headache Drug Allergy Problems Problem Type Condition Code Onset Dates Condition Status Problem Impotence of organic origin 607.84 Active Problem Insomnia, unspecified 780.52 Active Problem Edema 782.3 Active Problem Diabetes mellitus 250.00 Active Problem HTN (hypertension) 401.9 Active Problem Asthma 493.90 Active Problem Other and unspecified hyperlipidemia 272.4 Active Problem Essential hypertension, benign 401.1 Active Problem Depressive disorder, not elsewhere classified 311 Active Problem Anxiety state, unspecified 300.00 Active Assessment Depressive disorder, not elsewhere classified 311 Active Assessment Anxiety state, unspecified 300.00 Active Problem Umbilical hernia with obstruction 552.1 Active Problem Unspecified orchitis and epididymitis 604.90 Active Medications Medication Code System Code Instructions Start Date End Date Status Dosage Geodon [facility] [address]-08 80 MG Orally with dinner once a day Nov 24, 2014 1 capsule with food Blood Glucose Monitoring Suppl [facility] 0 w/Device monitor, strips & lancets Once a day prn as directed DX 250.02 Glucometer [facility] 0 Test Strips 3-4 times a day dx-250.00 Nov 11, 2014 dispense as insurance convers. Use as directed Potassium Chloride [facility] [address]-62 10 mEq May 19, 2014 10 mEq by Oral route 1 time per day vocuher copay please Aspirin [facility] [address]-85 81 mg June 19, 2013 chew 1 tablet (81 mg) by oral route once daily Ventolin HFA [facility] [address]-14 108 (90 Base) MCG/ACT Inhalation every 4 hrs prn Nov 20, 2014 2 puffs as needed Hydrochlorothiazide [facility] 29732044062 25 mg take 1 tablet by Oral route 1 time per day Clonidine HCl [facility] 74990437567 0.1MG TAKE ONE TABLET BY MOUTH ONCE DAILY Diclofenac Sodium [facility] 43011487652 75MG TAKE ONE TABLET BY MOUTH TWICE DAILY NEEDED Amlodipine Besylate [facility] 37107568064 10MG TAKE ONE TABLET BY MOUTH ONCE DAILY Metoprolol Tartrate [facility] 11390809388 50MG TAKE ONE TABLET BY MOUTH TWICE DAILY Benazepril HCl [facility] 59705204012 40MG TAKE ONE TABLET BY MOUTH ONCE DAILY Multivitamin [facility] 77711-[address]23 June 19, 2013 not defined Eszopiclone [facility] 72170452698 2MG TAKE ONE TABLET BY MOUTH IMMEDIATELY BEFORE BEDTIME MetFORMIN HCl ER [facility] 98928548435 500MG Orally 2 times a day 1 tablet Norvasc [facility] [address]-04 10 mg Feb 26, 2014 1 tablet by Oral route 1 time per day cyclobenzaprine [facility] [address]-99 10 mg Feb 26, 2014 1 tablet 1 time per day PRN Procedures Procedure Coding System Code Date Office Visit, Est Pt., Level 3 CPT-4 55603 Nov 24, 2014 Vital Signs Date/Time: Nov 24, 2014 Temperature 98.4 F Weight 286.0 lbs Height 68 in BMI 43.48 Index Blood Pressure Diastolic 88 mmHg Blood Pressure Systolic 150 mmHg Cardiac Monitoring Heart Rate 88 bpm Results No Known Results Summary Purpose eClinicalWorks Submission
--- OUTSIDE RECORDS SUMMARY | 2016-08-31 15:16 | XMS REPORT ---
Author Author VERA DOBBS [facility] eClinicalWorks Address Unknown Phone Unavailable Care Team Providers Care Hydraulic Press Operator Name Role Phone VERA DOBBS CP Unavailable [...] Instructions Start Date End Date Status Dosage Lunesta [facility] [address]-62 2 MG Orally Once a day Mar 11, 2015 1 tablet immediately before bedtime Results No Known Results Summary Purpose eClinicalWorks Submission
--- OUTSIDE RECORDS SUMMARY | 2016-08-31 15:16 | XMS REPORT ---
Author Author VERA DOBBS [facility] eClinicalWorks Address Unknown Phone Unavailable Care Team Providers Care Molding Machine Operator Name Role Phone VERA DOBBS CP [...] Start Date End Date Status Dosage Hydrochlorothiazide [facility] [address]-13 25 MG take 1 tablet by Oral route 1 time per day Gabapentin [facility] [address]-33 100 MG Orally at hs and prn cramping Dec 04, 2014 1 capsule MetFORMIN HCl ER [facility] 17929665148 500MG Orally 2 times a day 1 tablet Ventolin HFA [facility] [address]-81 108 (90 Base) MCG/ACT Inhalation every 4 hrs prn Nov 20, 2014 2 puffs as needed Metoprolol Tartrate [facility] 16113296060 50MG TAKE ONE TABLET BY MOUTH TWICE DAILY Multivitamin [facility] 9[address] June 19, 2013 not defined Amlodipine Besylate [facility] 92851258268 10MG TAKE ONE TABLET BY MOUTH ONCE DAILY Clonidine HCl [facility] 69127433918 0.1MG TAKE ONE TABLET BY MOUTH ONCE DAILY Aspirin [facility] [address]-82 81 mg June 19, 2013 chew 1 tablet (81 mg) by oral route once daily Benazepril HCl [facility] 43412152811 40MG TAKE ONE TABLET BY MOUTH ONCE DAILY Metolazone [facility] [address]-50 2.5 mg May 19, 2014 take 1 Tablet by Oral route 1 time per day vocuher copay has no money cyclobenzaprine [facility] [address]-32 10 mg PRN Feb 26, 2014 1 tablet 1 time per day PRN Glucometer [facility] 0 Test Strips 3-4 times a day dx-250.00 Nov 11, 2014 dispense as insurance convers. Use as directed Eszopiclone [facility] 26873179880 2MG TAKE ONE TABLET BY MOUTH IMMEDIATELY BEFORE BEDTIME Keflex [facility] [address]-91 500 MG Orally 3 times a day Dec 23, 2014 Dec 30, 2014 1 capsule Geodon [facility] [address]-20 60 MG Orally once a day Dec 12, 2014 1 capsule with food Diclofenac Sodium [facility] 20913496494 75MG TAKE ONE TABLET BY MOUTH TWICE DAILY NEEDED Pravachol [facility] [address]-56 40 mg Mar 20, 2014 take 1 tablet by Oral route 1 time per day Lipids due in Oct Celexa [facility] [address]-03 10 MG Orally Once a day Dec 24, 2014 0.5 tablet Blood Glucose Monitoring Suppl [facility] 0 w/Device monitor, strips & lancets Once a day prn as directed DX 250.02 Potassium Chloride [facility] [address]-58 10 mEq May 19, 2014 10 mEq by Oral route 1 time per day solange estrella please Procedures Procedure Coding System Code Date MH Office Visit, Ranjith Pt., Level 3 CPT-4 09351 Dec 24, 2014 Vital Signs Date/Time: Dec 24, 2014 Cardiac Monitoring Heart Rate 68 bpm Weight 280.0 lbs Height 68 in BMI 42.57 Index Blood Pressure Diastolic 75 mmHg Blood Pressure Systolic 122 mmHg Results No Known Results Summary Purpose eClinicalWorks Submission
--- OUTSIDE RECORDS SUMMARY | 2016-08-31 15:16 | XMS REPORT ---
Author Author ANA DUKE [facility] eClinicalWorks Address Unknown Phone Unavailable Care Team Providers Care Photography And Prints Curator Name Role Phone ANA DUKE CP Unavailable Allergies No Known Allergies Problems Problem Type Condition Code Onset Dates Condition Status Assessment Depressive disorder, not elsewhere classified 311 Active Assessment No condition on [place] II V71.09 Active Medications No Known Medications Procedures Procedure Coding System Code Date Psychotherapy, patient &/family, 45 minutes, new patient CPT-4 98573 Oct Results No Known Results Summary Purpose eClinicalWorks Submission
--- OUTSIDE RECORDS SUMMARY | 2016-08-31 15:16 | XMS REPORT ---
Author Author JESSICA MANCILLA Organization eClinicalWorks Address Unknown Phone Unavailable Care Team Providers Care Die Sinking Machine Operator Name Role Phone JESSICA MANCILLA CP Unavailable [...] Problem Anxiety state, unspecified 300.00 Active Problem Diabetes [...] Instructions Start Date End Date Status Dosage Metoprolol Tartrate [facility] 45750587676 50MG TAKE ONE TABLET BY MOUTH TWICE DAILY Results No Known Results Summary Purpose eClinicalWorks Submission
--- OUTSIDE RECORDS SUMMARY | 2016-08-31 15:16 | XMS REPORT ---
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
--- OUTSIDE RECORDS SUMMARY | 2016-08-31 15:16 | XMS REPORT ---
Author Author JESSICA MANCILLA Organization eClinicalWorks Address Unknown Phone Unavailable Care Team Providers Care Waistline Joiner Lockstitch Name Role Phone JESSICA MANCILLA CP [...] Instructions Start Date End Date Status Dosage Eszopiclone [facility] [id number] 2MG TAKE ONE TABLET BY MOUTH IMMEDIATELY BEFORE BEDTIME Results No Known Results Summary Purpose eClinicalWorks Submission
--- OUTSIDE RECORDS SUMMARY | 2016-08-31 15:16 | XMS REPORT ---
Author Author JESSICA MANCILLA Organization eClinicalWorks Address Unknown Phone Unavailable Care Team Providers Care Casting Machine Control Board Operator Name Role Phone JESSICA MANCILLA CP [...] Start Date End Date Status Dosage Gabapentin [facility] [address]-29 100 MG Orally at hs and prn cramping Dec 04, 2014 1 capsule Results No Known Results Summary Purpose eClinicalWorks Submission
--- OUTSIDE RECORDS SUMMARY | 2016-08-31 15:17 | XMS REPORT ---
Author Author JESSICA MANCILLA [facility] eClinicalWorks Address Unknown Phone Unavailable Care Team Providers Care Incinerator Operator Name Role Phone JESSICA MANCILLA CP [...]
--- OUTSIDE RECORDS SUMMARY | 2016-08-31 15:17 | XMS REPORT ---
Author Author DAYDAY GE [facility] eClinicalWorks Address Unknown Phone Unavailable Care Team Providers Care Electrician Marine Name Role Phone DAYDAY GE Unavailable Allergies [...] patient &/family, 30 minutes, established patient CPT-4 90339 Dec 24, 2015 [facility] VISIT MENTAL HEALTH ESTAB PT CPT-4 G0470 Dec 24, 2015 Results No Known Results Summary Purpose eClinicalWorks Submission
--- OUTSIDE RECORDS SUMMARY | 2016-08-31 15:17 | XMS REPORT ---
Author Author VERA DOBBS [facility] eClinicalWorks Address Unknown Phone Unavailable Care Team Providers Care Kiln Worker Name Role Phone VERA DOBBS CP Unavailable Allergies No Known Allergies Problems Problem Type Condition Code Onset Dates Condition Status Problem Mood disorder F39 Active Problem Pain of left hand M79.642 Active Problem Mixed hyperlipidemia E78.2 Active Problem Major depression F32.9 Active Problem Tremor R25.1 Active Problem Generalized anxiety disorder F41.1 Active Problem Arthritis M19.90 Active Problem Pain in right hand M79.641 Active Problem Spasms of the hands or feet R25.2 Active Problem Essential hypertension I10 Active Assessment Generalized anxiety disorder F41.1 Active Assessment Mood disorder F39 Active Assessment Major depression F32.9 Active Problem Mild intermittent asthma, uncomplicated J45.20 Active Problem Essential (primary) hypertension I10 Active Problem Impotence due to erectile dysfunction N52.9 Active Problem Leg pain, bilateral M79.604 Active Problem Type 2 diabetes mellitus with unspecified complications E11.8 Active Problem Tooth infection K04.7 Active Medications Medication Code System Code Instructions Start Date End Date Status Dosage Celexa [facility] 36475002630 20 mg Orally Once a day 1 tablet Multivitamin [facility] [address] June 19, 2013 not defined Klonopin [facility] [address]-95 1 MG Orally Twice a day Jan 16, 2015 1 tablet Glucometer [facility] 0 Test Strips 3-4 times a day dx-250.00 Nov 11, 2014 dispense as insurance convers. Use as directed Aspirin [facility] [address]-58 81 mg June 19, 2013 chew 1 tablet (81 mg) by oral route once daily Benztropine Mesylate [facility] [address]-17 1 MG Orally with Geodon Once a day Dec 16, 2015 1 tablet Potassium Chloride [facility] [address]-42 10 mEq Orally Once a day NEED LAB ON May 19, 2014 10 mEq by Geodon [facility] [address]-59 80 MG Orally Twice a day Dec 16, 2015 1 capsule with food Benazepril HCl [facility] 22752596806 40MG TAKE ONE TABLET BY MOUTH ONCE DAILY MetFORMIN HCl [place] 13694785092 500MG Orally 2 times a day 1 tablet Benztropine Mesylate ND 13481557182 0.5MG TAKE ONE TABLET BY MOUTH ONCE DAILY AT BEDTIME Gabapentin ND 06351141259 100MG 1 capsule at hs and prn cramping Orally 30 day(s) Hydrochlorothiazide ND 98463958045 25MG TAKE ONE TABLET BY MOUTH ONCE DAILY Diclofenac Sodium [facility] 98578357872 75MG DR TAKE ONE TABLET BY MOUTH TWICE DAILY Metoprolol Tartrate [facility] 59341142756 50MG TAKE ONE TABLET BY MOUTH TWICE DAILY Ventolin HFA [facility] [address]-81 108 (90 Base) MCG/ACT Inhalation every 4 hrs prn Nov 20, 2014 2 puffs as needed Clonidine HCl [facility] 96733943786 0.1MG TAKE ONE TABLET BY MOUTH ONCE DAILY Blood Glucose Monitoring Suppl [facility] 0 w/Device monitor, strips & lancets Once a day prn as directed DX 250.02 Amlodipine Besylate [facility] 08372774177 10MG TAKE ONE TABLET BY MOUTH ONCE DAILY Procedures Procedure Coding System Code Date Office Visit, Est Pt., Level 3 CPT-4 41293 Dec 16, 2015 [facility] VISIT ESTABLISHED PATIENT CPT-4 G0467 Dec 16, 2015 Vital Signs Date/Time: Dec 16, 2015 Cardiac Monitoring Heart Rate 78 bpm Weight 253.6 lbs Height 68 in BMI 38.56 Index Blood Pressure Diastolic 70 mmHg Blood Pressure Systolic 118 mmHg Results No Known Results Summary Purpose eClinicalWorks Submission
--- OUTSIDE RECORDS SUMMARY | 2016-08-31 15:17 | XMS REPORT ---
Author Author DAYDAY GE [facility] eClinicalWorks Address Unknown Phone Unavailable Care Team Providers Care Lining Strap Closer Name Role Phone DAYDAY GE Unavailable Allergies [...] patient &/family, 30 minutes, established patient CPT-4 88165 September 07, 2015 Results No Known Results Summary Purpose eClinicalWorks Submission
--- OUTSIDE RECORDS SUMMARY | 2016-08-31 15:17 | XMS REPORT ---
Author Author JESSICA MANCILLA [facility] eClinicalWorks Address Unknown Phone Unavailable Care Team Providers Care Power Lineman Technician Name Role Phone JESSICA MANCILLA CP Unavailable [...] Date End Date Status Dosage Clonidine HCl [facility] 41119738145 0.1MG TAKE ONE TABLET BY MOUTH ONCE DAILY Results No Known Results Summary Purpose eClinicalWorks Submission
--- OUTSIDE RECORDS SUMMARY | 2016-08-31 15:17 | XMS REPORT ---
Author Author JESSICA MANCILLA [facility] eClinicalWorks Address Unknown Phone Unavailable Care Team Providers Care Senior Litigation Paralegal Name Role Phone JESSICA MANCILLA CP Unavailable [...] Instructions Start Date End Date Status Dosage Keflex [facility] [address]-70 500 MG Orally 3 times a day Dec 23, 2014 Dec 30, 2014 1 capsule Results No Known Results Summary Purpose eClinicalWorks Submission
--- OUTSIDE RECORDS SUMMARY | 2016-08-31 15:17 | XMS REPORT ---
Author Author ANA DUKE [facility] eClinicalWorks Address Unknown Phone Unavailable Care Team Providers Care Speeder Frame Tender Name Role Phone ANA DUKE CP Unavailable [...] due to erectile dysfunction N52.9 Active Assessment Mood disorder F39 Active Problem Mild intermittent asthma, uncomplicated J45.20 Active Problem Type 2 diabetes mellitus with unspecified complications E11.8 Active Medications No Known Medications Procedures Procedure Coding System Code Date Psychotherapy, patient &/family, 45 minutes, established patient CPT-4 01171 Feb 05, 2015 Results No Known Results Summary Purpose eClinicalWorks Submission
--- OUTSIDE RECORDS SUMMARY | 2016-08-31 15:17 | XMS REPORT ---
Author Author JESSICA MANCILLA [facility] eClinicalWorks Address Unknown Phone Unavailable Care Team Providers Care Assembler Mechanical Ordnance Name Role Phone JESSICA MANCILLA Unavailable Allergies, Adverse Reactions, Alerts Substance Reaction Event Type Sulfamethoxazole anaphylaxis Drug Allergy Sodium Polystyrene Sulfonate nausea, vomiting Drug Allergy Remeron bad nightmares Drug Allergy Penicillin V Potassium anaphylaxis Drug Allergy Hydrocodone-Acetaminophen headache Drug Allergy Problems Problem Type Condition Code Onset Dates Condition Status Problem Tooth infection K04.7 Active Problem Mixed hyperlipidemia E78.2 Active Problem Mood disorder F39 Active Problem Tremor R25.1 Active Assessment Erectile dysfunction, unspecified erectile dysfunction type N52.9 Active Problem Spasms of the hands or feet R25.2 Active Assessment Hyponatremia E87.1 Active Problem Erectile dysfunction, unspecified erectile dysfunction type N52.9 Active Problem Pain in right hand M79.641 Active Problem Pain of left hand M79.642 Active Problem Essential hypertension I10 Active Problem Arthritis M19.90 Active Assessment Tremor R25.1 Active Assessment Mixed hyperlipidemia E78.2 Active Assessment Arthritis M19.90 Active Assessment Essential hypertension I10 Active Problem Type 2 diabetes mellitus with unspecified complications E11.8 Active Problem Mild intermittent asthma, uncomplicated J45.20 Active Assessment Type 2 diabetes mellitus with unspecified complications E11.8 Active Problem Essential (primary) hypertension I10 Active Problem Impotence due to erectile dysfunction N52.9 Active Problem Leg pain, bilateral M79.604 Active Medications Medication Code System Code Instructions Start Date End Date Status Dosage Clonidine HCl [facility] 72731388874 0.1MG TAKE ONE TABLET BY MOUTH ONCE DAILY Gabapentin [facility] 70729183300 100MG 1 capsule at hs and prn cramping Orally 30 day(s) Ropinirole HCl [facility] [address]-28 1 MG Orally daily not defined Cyclobenzaprine HCl [facility] [address]-43 10 mg Orally Three times a day PRN 1 tablet Diclofenac Sodium [facility] 72216568411 [address]MG [address] Orally Twice a day 1 tablet Aspirin [facility] [address]-89 81 mg chew 1 tablet (81 mg) by oral route once daily Glucometer [place] 0 Test Strips 3-4 times a day dx-250.00 Nov 11, 2014 dispense as insurance convers. Use as directed Benazepril HCl [facility] 76946507726 40MG TAKE ONE TABLET BY MOUTH ONCE DAILY Benztropine Mesylate [facility] [address]-18 1 MG Orally with Geodon Once a day Dec 16, 2015 1 tablet Celexa [facility] 79585852428 20 mg Orally Once a day 1 tablet Potassium Chloride [facility] [address]-89 10 mEq Orally three times weekly 10 mEq by Metoprolol Tartrate [facility] 71321432015 50MG TAKE ONE TABLET BY MOUTH TWICE DAILY Multivitamin [facility] 96[address]40 June 19, 2013 not defined Amlodipine Besylate [facility] 56521304591 10MG TAKE ONE TABLET BY MOUTH ONCE DAILY Clonidine HCl [facility] 55665288575 0.1MG TAKE ONE TABLET BY MOUTH ONCE DAILY Ventolin HFA [facility] [address]-11 108 (90 Base) MCG/ACT Inhalation every 4 hrs prn Nov 20, 2014 2 puffs as needed Klonopin [facility] [address]-74 1 MG Orally Twice a day Jan 16, 2015 1 tablet Geodon [facility] [address]-29 80 MG Orally Twice a day Dec 16, 2015 1 capsule with food Hydrochlorothiazide [facility] 29979581572 25MG TAKE ONE TABLET BY MOUTH ONCE DAILY Viagra [facility] [address]-94 100 MG Orally Once a day Mar 11, 2015 1/2- 1 tablet as needed Blood Glucose Monitoring Suppl [facility] 0 w/Device monitor, strips & lancets Once a day prn as directed DX 250.02 Diclofenac Sodium [facility] 79920441466 75MG [address] TAKE ONE TABLET BY MOUTH TWICE DAILY MetFORMIN HCl ER [facility] 17430374367 500MG Orally 2 times a day 1 tablet Procedures Procedure Coding System Code Date LAB [facility] CPT-4 NOBLL Dec 30, 2015 [facility] VISIT ESTABLISHED PATIENT CPT-4 G0467 Dec 30, 2015 GLYCATED HEMOGLOBIN TEST CPT-4 11524 Dec 30, 2015 VENIPUNCT, ROUTINE* CPT-4 43654 Dec 30, 2015 Office Visit, Est Pt., Level 4 CPT-4 68763 Dec 30, 2015 Vital Signs Date/Time: Dec 30, 2015 Cardiac Monitoring Heart Rate 70 bpm Weight 255 lbs Height 68 in BMI 38.77 Index Blood Pressure Diastolic 70 mmHg Blood Pressure Systolic 114 mmHg Results Name Result Date Reference Range Unit Abnormality Flag A1C (IN HOUSE) ----A1C IN HOUSE 5.8 20151230 4.3 - 5.6 % ----Previous A1c 6.2 [id number] ----Lot [id number] ----Exp date [id number] ROUTINE VENIPUNCTURE Summary Purpose eClinicalWorks Submission
--- OUTSIDE RECORDS SUMMARY | 2016-08-31 15:17 | XMS REPORT ---
Author Author JESSICA MANCILLA [facility] eClinicalWorks Address Unknown Phone Unavailable Care Team Providers Care Landfill Gas Plant Field Technician Name Role Phone JESSICA MANCILLA CP [...] Impotence of organic origin 607.84 Active Problem HTN (hypertension) 401.9 Active Problem Depressive disorder, not elsewhere classified 311 Active Problem Diabetes mellitus 250.00 Active Problem Essential hypertension, benign 401.1 Active Problem Insomnia, unspecified 780.52 Active Problem Anxiety state, unspecified 300.00 Active Problem Other and unspecified hyperlipidemia 272.4 Active Assessment Cramping of feet 729.82 Active Assessment HTN (hypertension) 401.9 Active Assessment Diabetes mellitus 250.00 Active Problem Umbilical hernia with obstruction 552.1 Active Medications Medication Code System Code Instructions Start Date End Date Status Dosage Trileptal [facility] [address]-54 600 MG Orally twice a day Oct 24, 2014 1 tablet Mirtazapine [facility] [address]-99 15 MG Orally Once a day Oct 24, 2014 1 tablet before bedtime in the evening MetFORMIN HCl ER [facility] 14849035864 500MG Orally 2 times a day 1 tablet Multivitamin [facility] 46[address] June 19, 2013 not defined Potassium Chloride [facility] [address]-57 10 mEq May 19, 2014 10 mEq by Oral route 1 time per day vocuher copay please Pravachol [facility] [address]-55 40 mg Mar 20, 2014 take 1 tablet by Oral route 1 time per day Lipids due in Oct Amlodipine Besylate [facility] 43243970102 10MG TAKE ONE TABLET BY MOUTH ONCE DAILY Metolazone [facility] [address]-02 2.5 mg May 19, 2014 take 1 Tablet by Oral route 1 time per day solange estrella has no money cyclobenzaprine [facility] [address]-75 10 mg Feb 26, 2014 1 tablet 1 time per day PRN Clonidine HCl [facility] 65881490699 0.1MG TAKE ONE TABLET BY MOUTH ONCE DAILY Oxycodone-Acetaminophen [facility] [address]-07 7.5-325 MG Orally every 4 hrs 1 tablet as needed Benazepril HCl [facility] 69146989431 40MG TAKE ONE TABLET BY MOUTH ONCE DAILY Keflex [facility] [address]-39 500 MG Orally Four times a day 1 capsule Diclofenac Sodium [facility] 58085196428 75MG TAKE ONE TABLET BY MOUTH TWICE DAILY NEEDED Eszopiclone [facility] 83401969438 2MG TAKE ONE TABLET BY MOUTH IMMEDIATELY BEFORE BEDTIME Metoprolol Tartrate [facility] 87878402212 50MG TAKE ONE TABLET BY MOUTH TWICE DAILY Norvasc [facility] [address]-76 10 mg Feb 26, 2014 1 tablet by Oral route 1 time per day Blood Glucose Monitoring Suppl [facility] 0 w/Device monitor, strips & lancets Once a day prn Nov 05, 2014 as directed DX 250.02 Aspirin [facility] [address]-86 81 mg June 19, 2013 chew 1 tablet (81 mg) by oral route once daily Hydrochlorothiazide [facility] 38061862027 25 mg take 1 tablet by Oral route 1 time per day Procedures Procedure Coding System Code Date [facility] CPT-4 NOBLL Nov 05, 2014 Office Visit, Est Pt., Level 4 CPT-4 74222 Nov 05, 2014 GLYCATED HEMOGLOBIN TEST CPT-4 24515 Nov 05, 2014 VENIPUNCT, ROUTINE* CPT-4 58464 Nov 05, 2014 Vital Signs Date/Time: Nov 05, 2014 Temperature 98.4 F Weight 282.7 lbs Height 68 in BMI 42.98 Index Blood Pressure Diastolic 86 mmHg Blood Pressure Systolic 132 mmHg Cardiac Monitoring Heart Rate 84 bpm Results Name Result Date Reference Range Unit Abnormality Flag A1C (IN HOUSE) MAGNESIUM, SERUM Summary Purpose eClinicalWorks Submission
--- OUTSIDE RECORDS SUMMARY | 2016-08-31 15:17 | XMS REPORT ---
Author Author VERA DOBBS [facility] eClinicalWorks Address Unknown Phone Unavailable Care Team Providers Care Home Designer Name Role Phone VERA DOBBS CP Unavailable [...] Start Date End Date Status Dosage Klonopin [facility] [address]-58 1 MG Orally Twice a day Jan 16, 2015 1 tablet Results No Known Results Summary Purpose eClinicalWorks Submission
--- OUTSIDE RECORDS SUMMARY | 2016-08-31 15:18 | XMS REPORT ---
Author JESSICA Hernandez [facility] eClinicalWorks Address Unknown Phone Unavailable Care Team Providers Care Freight Booker Name Role Phone JESSICA MANCILLA CP Unavailable Allergies, Adverse Reactions, Alerts Substance Reaction Event Type Sulfamethoxazole anaphylaxis Drug Allergy Sodium Polystyrene Sulfonate nausea, vomiting Drug Allergy Remeron bad nightmares Drug Allergy Penicillin V Potassium anaphylaxis Drug Allergy Hydrocodone-Acetaminophen headache Drug Allergy Problems Problem Type Condition Code Onset Dates Condition Status Assessment Encounter for immunization Z23 Active Assessment Leg pain, bilateral M79.604 Active Problem Leg pain, bilateral M79.604 Active Problem Essential (primary) hypertension I10 Active Problem Tooth infection K04.7 Active Problem Impotence due to erectile dysfunction N52.9 Active Assessment Tooth infection K04.7 Active Problem Mild intermittent asthma, uncomplicated J45.20 Active Problem Type 2 diabetes mellitus with unspecified complications E11.8 Active Medications Medication Code System Code Instructions Start Date End Date Status Dosage Gabapentin [facility] [address]-15 100 MG Orally at hs and prn cramping Dec 04, 2014 1 capsule MetFORMIN HCl ER [facility] 15922594883 500MG Orally 2 times a day 1 tablet Ventolin HFA [facility] [address]-88 108 (90 Base) MCG/ACT Inhalation every 4 hrs prn Nov 20, 2014 2 puffs as needed Potassium Chloride [facility] [address]-21 10 mEq May 19, 2014 10 mEq by Oral route 1 time per day vocuher copay please Benazepril HCl [facility] 05658576399 40MG TAKE ONE TABLET BY MOUTH ONCE DAILY Diclofenac Sodium [facility] 40536247824 75MG TAKE ONE TABLET BY MOUTH TWICE DAILY NEEDED Keflex [facility] [address]-16 500 MG Orally 3 times a day Dec 04, 2014 Dec 14, 2014 1 capsule Geodon [facility] [address]-09 80 MG Orally with dinner once a day Nov 24, 2014 1 capsule with food Hydrochlorothiazide [facility] 89172602288 25 mg take 1 tablet by Oral route 1 time per day cyclobenzaprine [facility] [address]-53 10 mg PRN Feb 26, 2014 1 tablet 1 time per day PRN Multivitamin [facility] 447[address]95 June 19, 2013 not defined Eszopiclone [facility] 14437111664 2MG TAKE ONE TABLET BY MOUTH IMMEDIATELY BEFORE BEDTIME Glucometer [facility] 0 Test Strips 3-4 times a day dx-250.00 Nov 11, 2014 dispense as insurance convers. Use as directed Blood Glucose Monitoring Suppl [facility] 0 w/Device monitor, strips & lancets Once a day prn as directed DX 250.02 Metoprolol Tartrate [facility] 67884291826 50MG TAKE ONE TABLET BY MOUTH TWICE DAILY Amlodipine Besylate [facility] 65563340744 10MG TAKE ONE TABLET BY MOUTH ONCE DAILY Clonidine HCl [facility] 32933379254 0.1MG TAKE ONE TABLET BY MOUTH ONCE DAILY Norvasc [facility] [address]-62 10 mg Feb 26, 2014 1 tablet by Oral route 1 time per day Aspirin [facility] [address]-80 81 mg June 19, 2013 chew 1 tablet (81 mg) by oral route once daily Procedures Procedure Coding System Code Date SINGLE IMMUNIZATION ADMIN CPT-4 38623 Dec 04, 2014 Office Visit, Est Pt., Level 4 CPT-4 76325 Dec 04, 2014 PPV23 (PNEUMOVAX) CPT-4 45873 Dec 04, 2014 Vital Signs Date/Time: Dec 04, 2014 Temperature 98.2 F Weight 280.2 lbs Height 68 in BMI 42.60 Index Blood Pressure Diastolic 86 mmHg Blood Pressure Systolic 130 mmHg Cardiac Monitoring Heart Rate 80 bpm Results No Known Results Immunizations Vaccine Administration Date PPV23 (PNEUMOVAX) Dec 04, 2014 Summary Purpose eClinicalWorks Submission
--- OUTSIDE RECORDS SUMMARY | 2016-08-31 15:18 | XMS REPORT ---
Author Author JESSICA MANCILLA Organization eClinicalWorks Address Unknown Phone Unavailable Care Team Providers Care Payroll Master Name Role Phone JESSICA MANCILLA CP Unavailable [...] Active Problem Essential hypertension I10 Active Problem Mild intermittent asthma, uncomplicated J45.20 Active Problem Essential (primary) hypertension I10 Active Problem Impotence due to erectile dysfunction N52.9 Active Problem Leg pain, bilateral M79.604 Active Problem Type 2 diabetes mellitus with unspecified complications E11.8 Active Problem Tooth infection K04.7 Active Medications No Known Medications Results No Known Results Summary Purpose eClinicalWorks Submission
--- OUTSIDE RECORDS SUMMARY | 2016-08-31 15:18 | XMS REPORT ---
Author Author DAYDAY GE [facility] eClinicalWorks Address Unknown Phone Unavailable Care Team Providers Care Chin Strap Sewer Name Role Phone DAYDAY GE Unavailable Allergies No Known Allergies Problems Problem Type Condition Code Onset Dates Condition Status Problem Impotence due to erectile dysfunction N52.9 Active Problem Mild intermittent asthma, uncomplicated J45.20 Active Problem Type 2 diabetes mellitus with unspecified complications E11.8 Active Assessment Mood disorder F39 Active Problem Pain of left hand M79.642 Active Problem Mixed hyperlipidemia E78.2 Active Problem Pain in right hand M79.641 Active Problem Leg pain, bilateral M79.604 Active Problem Essential (primary) hypertension I10 Active Problem Mood disorder F39 Active Problem Tooth infection K04.7 Active Medications No Known Medications Procedures Procedure Coding System Code Date Psychotherapy, patient &/family, 45 minutes, established patient CPT-4 63967 June 12, 2015 Results No Known Results Summary Purpose eClinicalWorks Submission
--- OUTSIDE RECORDS SUMMARY | 2016-08-31 15:18 | XMS REPORT ---
Author Author VERA DOBBS [facility] eClinicalWorks Address Unknown Phone Unavailable Care Team Providers Care Camp Program Director Name Role Phone VERA DOBBS CP Unavailable [...] Start Date End Date Status Dosage Klonopin [facility] [address]-84 1 MG Orally Twice a day Jan 16, 2015 1 tablet Results No Known Results Summary Purpose eClinicalWorks Submission
--- OUTSIDE RECORDS SUMMARY | 2016-08-31 15:18 | XMS REPORT ---
Author Author VERA DOBBS [facility] eClinicalWorks Address Unknown Phone Unavailable Care Team Providers Care Grid Inspector Name Role Phone VERA DOBBS CP Unavailable [...] Instructions Start Date End Date Status Dosage [facility] [address]-55 60 MG Orally once a day Dec 12, 2014 1 capsule with food Results No Known Results Summary Purpose eClinicalWorks Submission
--- OUTSIDE RECORDS SUMMARY | 2016-08-31 15:18 | XMS REPORT ---
Author Author JESSICA MANCILLA [facility] e[employer] Address Unknown Phone Unavailable Care Team Providers Care Convertible Sofa Bedspring Tester Name Role Phone JESSICA MANCILLA CP Unavailable [...]
--- OUTSIDE RECORDS SUMMARY | 2016-08-31 15:18 | XMS REPORT ---
Author Author JESSICA MANCILLA Organization [employer] Address Unknown Phone Unavailable Care Team Providers Care Art Appraiser Name Role Phone JESSICA MANCILLA CP Unavailable [...] Instructions Start Date End Date Status Dosage Amlodipine Besylate [facility] [id number] 10MG TAKE ONE TABLET BY MOUTH ONCE DAILY Benazepril HCl [facility] [id number] 40MG TAKE ONE TABLET BY MOUTH ONCE DAILY Diclofenac Sodium [facility] [id number] 75MG TAKE ONE TABLET BY MOUTH TWICE DAILY NEEDED Results No Known Results Summary Purpose eClinicalWorks Submission
== END 2016-08-30 09:32 | disposition home or self-care (01) ==
LOC: EDUNIT# 15:37 → ER 15:40 → ICU 19:04 → UNDOADMOB 19:04 → ICU 19:45 → ENPENDDIS 08-30 14:30 → UNDODISOB 08-30 16:10
PROVIDERS: ADMIT Family Medicine; ATTEND Family Medicine
DX: R55 Syncope and collapse (principal); R07.9 Chest pain, unspecified; R00.1 Bradycardia, unspecified; E78.5 Hyperlipidemia, unspecified; E87.6 Hypokalemia; K21.9 Gastro-esophageal reflux disease without esophagitis; I10 Essential (primary) hypertension; I25.10 Atherosclerotic heart disease of native coronary artery without angina pectoris; E11.40 Type 2 diabetes mellitus with diabetic neuropathy, unspecified; E66.9 Obesity, unspecified; Z68.38 Body mass index [BMI] 38.0-38.9, adult; J45.901 Unspecified asthma with (acute) exacerbation; F33.9 Major depressive disorder, recurrent, unspecified; F41.9 Anxiety disorder, unspecified; Z79.82 Long term (current) use of aspirin; Z79.84 Long term (current) use of oral hypoglycemic drugs; Z79.899 Other long term (current) drug therapy
CPT/HCPCS: 36415; 71020; 71275; 80048; 80053; 80061; 83735; 83874; 83880; 84484; 85025; 85379; 85610; 85730; 93005; 93041; 93880; 94640; 94760

== ENCOUNTER → 2016-11-03 | Outpatient (CLI) | payer MEDICARE ==
[~2016-11-03] MED LIST changes: +ALFU10TA11 PO; +AMLO5TAB2 PO; +ATOR40TA70 PO; +BENA40TA59 PO; +BENZ1TAB6 PO; +CITA40TA19 PO; +CLON0.5T PO; +DIAZ5TAB PO; +GABA300C PO; +IPRA4AER IH; +METF-478 PO; +OMEP20TA33 PO; +OXYC-197 PO; +POTA10CA43 PO; +TADA5TAB2 PO; +TAMS0.4C2 PO; +TERBIN250T PO; +TRAZ100T92 PO; +ZPR80C PO
== END ==
LOC: PREOP 05:35
PROVIDERS: ATTEND Urology
DX: Z01.818 Encounter for other preprocedural examination (principal); N43.3 Hydrocele, unspecified

== ENCOUNTER 2016-12-12 11:59 | Outpatient (CLI) | payer MEDICARE ==
[~2016-12-12] VITALS: Ht 172.7 cm; Wt 115.2 kg
[2016-12-12] MEDS ORDERED: TRAZ100T92 PO (12:17)
[2016-12-12] MEDS ORDERED: CLON0.1T PO (12:17)
[2016-12-12] MEDS ORDERED: AMLO5TAB2 PO (12:17)
[2016-12-12] MEDS ORDERED: MULT-35 PO (12:17)
[2016-12-12] MEDS ORDERED: BNZ40T PO (12:17)
[2016-12-12] MEDS ORDERED: HYDR25TA4 PO (12:17)
[2016-12-12] MEDS ORDERED: METO50TA2 PO (12:17)
[2016-12-12] MEDS ORDERED: ASPI-999 PO (12:17)
[2016-12-12] MEDS ORDERED: DICL75TA2 PO (12:17)
[2016-12-12] MEDS ORDERED: TADA5TAB2 PO (12:17)
[2016-12-12] MEDS ORDERED: CLON1TAB3 PO (12:17)
[2016-12-12] MEDS ORDERED: CYCL10TA9 PO (12:17)
== END 2016-12-12 12:25 ==
LOC: PREOP 11:59
PROVIDERS: ATTEND Urology
DX: Z01.818 Encounter for other preprocedural examination (principal); N43.3 Hydrocele, unspecified

== ENCOUNTER 2016-12-19 06:52 | Day surgery (SDC) | payer MEDICARE, OTHER ==
[~2016-12-19] VITALS: Ht 172.7 cm; Wt 115.2 kg
[~2016-12-19 06:52] MED LIST changes: +ASPI-999 PO; +CLON1TAB3 PO; +CYCL10TA9 PO; +MULT-35 PO
--- OUTSIDE RECORDS SUMMARY | 2016-12-19 06:56 | XMS REPORT ---
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 Active 229155841604 Problem Type 2 diabetes mellitus with unspecified complications E11.8 Active 70125225 Problem Primary insomnia F51.01 Active 1283537 Problem Essential (primary) hypertension I10 Active 34640248 Problem Hypokalemia E87.6 Active 13605927 Problem Mild intermittent asthma, uncomplicated J45.20 Active 315436574 Problem Hypotestosteronism E29.1 Active 2381369833079 Problem Erectile dysfunction of organic origin N52.9 Active 908431390 Problem Onychia of toe, right L03.031 Active 562405883 Problem 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 Active 499224518 Problem Recurrent major depressive disorder, in partial remission F33.41 Active 81067151 Problem Tremor R25.1 Active 43926706 Problem Mixed hyperlipidemia E78.2 Active 140801420 Problem Mood disorder F39 Active 25789077 Problem Mild intermittent asthma without complication J45.20 Active 248708855 Problem Hydrocele, right N43.3 Active 79189840 Problem Chronic fatigue R53.82 Active 00779539 Problem Lumbago with sciatica, right side M54.41 Active 219704149 Problem Generalized anxiety disorder F41.1 Active 15697515 Problem Major depression F32.9 Active 687767271 Problem Arthritis M19.90 Active 4126997 Problem Essential hypertension I10 Active 33258006 Problem Dyspepsia R10.13 Active 853576965 Problem Gastritis, unspecified, without bleeding K29.70 Active 865047766 Problem Major depression, chronic F32.9 Active 66421570 Problem Acute non-recurrent maxillary sinusitis J01.00 Active 10994909 ALLERGIES No Information SOCIAL HISTORY Never Assessed PLAN OF CARE VITAL SIGNS MEDICATIONS Medication Instructions Dosage Frequency Start Date End Date Duration Status Gabapentin 300 MG Orally at bedtime 1 capsule at hs and once daily prn cramping Orally 30 day(s) 30 days Active RESULTS No Results PROCEDURES No Known procedures IMMUNIZATIONS No Known Immunizations MEDICAL (GENERAL) HISTORY Type Description Date Medical History hypertension Medical History asthma Medical History hernia Medical History hyperlipidemia Medical History Arthritis Medical History headache Medical History chronic pain-herniated lumbar disc Medical History Hydrocele with enlarged testicles since 2010- could afford to see urology Medical History Unspecified orchitis and epididymitis Medical History Umbilical hernia with obstruction Medical History Diabetes type 2 Medical History Hepatitis A Medical History Spasms of the hands or feet Surgical History arthroscopic knee surgery (R) [place] 1982 Surgical History tonsillectomy with wisdom teeth extraction Surgical History appendectomy 1970 Surgical History heart cath 06/2014 Hospitalization History pneumonia 01/2013 Hospitalization History flu 1993 Hospitalization History reaction to sulfa 1979 Hospitalization History Heart Cath. 2014 Hospitalization History Knee Scope 1982 Hospitalization History [facility] Mar 2016 Hospitalization History chest pain August 29, 2016
--- OUTSIDE RECORDS SUMMARY | 2016-12-19 06:56 | XMS REPORT ---
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 Active 970714305239 Problem Type 2 diabetes mellitus with unspecified complications E11.8 Active 28071701 Problem Primary insomnia F51.01 Active 3767044 Problem Essential (primary) hypertension I10 Active 16252827 Problem Hypokalemia E87.6 Active 93259293 Problem Mild intermittent asthma, uncomplicated J45.20 Active 608795502 Problem Hypotestosteronism E29.1 Active 3965475827570 Problem Erectile dysfunction of organic origin N52.9 Active 658370932 Problem Onychia of toe, right L03.031 Active 240458281 Problem 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 Active 562036875 Problem Recurrent major depressive disorder, in partial remission F33.41 Active 70003247 Problem Tremor R25.1 Active 56958801 Problem Mixed hyperlipidemia E78.2 Active 686440622 Problem Mood disorder F39 Active 38856092 Problem Mild intermittent asthma without complication J45.20 Active 347216542 Problem Hydrocele, right N43.3 Active 47778537 Problem Chronic fatigue R53.82 Active 31463175 Problem Lumbago with sciatica, right side M54.41 Active 187567807 Problem Generalized anxiety disorder F41.1 Active 28366263 Problem Major depression F32.9 Active 494277508 Problem Arthritis M19.90 Active 6284836 Problem Essential hypertension I10 Active 26609676 Problem Dyspepsia R10.13 Active 071130266 Problem Gastritis, unspecified, without bleeding K29.70 Active 629310525 Problem Major depression, chronic F32.9 Active 33066929 Problem Acute non-recurrent maxillary sinusitis J01.00 Active 40990083 ALLERGIES Substance Reaction Event Type Date Status Sulfamethoxazole anaphylaxis Drug Allergy Mar, Active Sodium Polystyrene Sulfonate nausea, vomiting Drug Allergy Mar, Active Remeron bad nightmares Drug Allergy Mar, Active Penicillin V Potassium anaphylaxis Drug Allergy Mar, Active Hydrocodone-Acetaminophen headache Drug Allergy Mar, Active SOCIAL HISTORY Never Assessed PLAN OF CARE Activity Details Follow Up 3 Months Reason: VITAL SIGNS Height 68 in 2016-03-30 Weight 253.7 lbs 2016-03-30 Heart Rate 84 bpm 2016-03-30 Respiratory Rate 18 2016-03-30 BMI 38.57 kg/m2 2016-03-30 Blood pressure systolic 100 mmHg 2016-03-30 Blood pressure diastolic 61 mmHg 2016-03-30 MEDICATIONS Medication Instructions Dosage Frequency Start Date End Date Duration Status Aspirin 81 mg chew 1 tablet (81 mg) by oral route once daily Active Glucometer Test Strips dispense as insurance convers. Use as directed Oct, Active Hydrochlorothiazide 25MG Orally Once a day 1 tablet 24h 30 Active Benazepril HCl 40MG Orally Once a day 1 tablet 24h 30 Active Blood Glucose Monitoring Suppl w/Device monitor, strips & lancets Once a day prn as directed DX 250.02 Active Metoprolol Tartrate 50MG Orally Twice a day 1 tablet 12h 30 Active Viagra 100 MG Orally Once a day 1/2-1 tablet as needed 24h Feb, Active MetFORMIN HCl ER 500MG TAKE ONE TABLET BY MOUTH TWICE DAILY 30 Active Klonopin 1 MG Orally at hs 1 tablet Dec, 30 days Active Clonidine HCl 0.1MG Orally Once a day 1 tablet 24h 30 Active Depo-Testosterone 200 MG/ML Intramuscular once monthly for 2 months then office visit before third injection 1 ml Active Potassium Chloride 10 mEq Orally Once a day 10 mEq by 24h Active Ventolin HFA 108 (90 Base) MCG/ACT Inhalation every 4 hrs prn 2 puffs as needed Oct, Active Gabapentin 300 MG Orally voucher once a day 1 capsule 24h Mar, 30 day(s) Active Amlodipine Besylate 10MG Orally Once a day 1 tablet 24h 30 Active Gabapentin 100MG 1 capsule at hs and prn cramping Orally 30 day(s) 30 Active Omeprazole 40 mg Orally Once a day 1 capsule 24h Feb, 30 day(s ) Active Multivitamin May, Active Diclofenac Sodium 75MG DR TAKE ONE TABLET BY MOUTH TWICE DAILY 30 Active Celexa 40 MG Orally Once a day 1 tablet 24h Mar, 30 day(s) Active RESULTS Name Result Date Reference Range URINE DRUG SCREEN (IN HOUSE) 2016-03-30 Lot # [id number] Exp date Control + COCAINE Negative AMPH Negative MTD Negative THC Negative OPIATE Negative BENZO Negative PCP Negative BAR Negative OXY Negative MAMP Negative TCA Positive BUP Negative MDMA Negative PROCEDURES Procedure Date Ordered Result Body Site DRUG TEST PRSMV DIR OPT OBS Mar 30, 2016 [facility] VISIT ESTABLISHED PATIENT Mar 30, 2016 IMMUNIZATIONS No Known Immunizations MEDICAL (GENERAL) HISTORY [...] feet Surgical History arthroscopic knee surgery (R) Jodie-Stephani 1982 Surgical History tonsillectomy with wisdom teeth extraction Surgical History appendectomy 1971 Surgical History heart cath 06/2014 Hospitalization History pneumonia 01/2013 Hospitalization History flu 1993 Hospitalization History reaction to sulfa 1979 Hospitalization History Heart Cath. 2014 Hospitalization History Knee Scope 1982 Hospitalization History [facility] Mar 2016 Hospitalization History chest pain August 29, 2016
--- OUTSIDE RECORDS SUMMARY | 2016-12-19 06:58 | XMS REPORT ---
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 Active 641172171446 Problem Type 2 diabetes mellitus with unspecified complications E11.8 Active 06398436 Problem Primary insomnia F51.01 Active 2819008 Problem Essential (primary) hypertension I10 Active 24149051 Problem Hypokalemia E87.6 Active 03271429 Problem Mild intermittent asthma, uncomplicated J45.20 Active 980901835 Problem Hypotestosteronism E29.1 Active 1386492891229 Problem Erectile dysfunction of organic origin N52.9 Active 860555134 Problem Onychia of toe, right L03.031 Active 777012857 Problem 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 Active 125391684 Problem Recurrent major depressive disorder, in partial remission F33.41 Active 84108720 Problem Tremor R25.1 Active 61774594 Problem Mixed hyperlipidemia E78.2 Active 220587125 Problem Mood disorder F39 Active 07864690 Problem Mild intermittent asthma without complication J45.20 Active 667626478 Problem Hydrocele, right N43.3 Active 40005366 Problem Chronic fatigue R53.82 Active Problem Lumbago with sciatica, right side M54.41 Active 677994700 Problem Generalized anxiety disorder F41.1 Active 27695509 Problem Major depression F32.9 Active 096932399 Problem Arthritis M19.90 Active 0907696 Problem Essential hypertension I10 Active 00379221 Problem Dyspepsia R10.13 Active 562272129 Problem Gastritis, unspecified, without bleeding K29.70 Active 190100901 Problem Major depression, chronic F32.9 Active 83385230 Problem Acute non-recurrent maxillary sinusitis J01.00 Active 96636880 ALLERGIES Substance Reaction Event Type Date Status Sulfamethoxazole anaphylaxis Drug Allergy Apr, Active Sodium Polystyrene Sulfonate nausea, vomiting Drug Allergy Apr, Active Remeron bad nightmares Drug Allergy Apr, Active Penicillin V Potassium anaphylaxis Drug Allergy Apr, Active Hydrocodone-Acetaminophen headache Drug Allergy Apr, Active SOCIAL HISTORY Never Assessed PLAN OF CARE Activity Details Follow Up pending lab or 3 mo Reason:DM VITAL SIGNS Height 68 in 2016-05-03 Weight 265.7 lbs 2016-05-03 Temperature 98.3 degrees Fahrenheit 2016-05-03 Heart Rate 68 bpm 2016-05-03 Respiratory Rate 18 2016-05-03 BMI 40.40 kg/m2 2016-05-03 Blood pressure systolic 130 mmHg 2016-05-03 Blood pressure diastolic 78 mmHg 2016-05-03 MEDICATIONS Medication Instructions Dosage Frequency Start Date End Date Duration Status Depo-Testosterone 200 MG/ML Intramuscular once monthly for 2 months then office visit before third injection 1 ml Active Hydrochlorothiazide 25MG Orally Once a day 1 tablet 24h 30 Active Trazodone HCl 50 MG Orally Once a day 2 tablets 24h Mar, Active Gabapentin 300 MG Orally at bedtime 1 capsule at hs and prn cramping Orally 30 day(s) Active Metoprolol Tartrate 50MG Orally Twice a day 1 tablet 12h 30 Active Ventolin HFA 108 (90 Base) MCG/ACT Inhalation every 4 hrs prn 2 puffs as needed Oct, Active Klonopin 1 MG Orally at hs 1 tablet Dec, 30 days Active Benazepril HCl 40MG Orally Once a day 1 tablet 24h 30 Active Geodon 80 MG Orally Once a day 1 capsule with food 24h Active Aspirin 81 mg chew 1 tablet (81 mg) by oral route once daily Active MetFORMIN HCl ER 500MG Orally twice a day 1 tablet 12h 30 Active Celexa 40 MG Orally Once a day 1 tablet 24h Mar, 30 day(s) Active Viagra 100 MG TAKE ONE-HALF TO ONE TABLET BY MOUTH ONCE DAILY NEEDED 10 Active Omeprazole 40 mg Orally Once a day 1 capsule 24h Feb, 30 day(s ) Active Amlodipine Besylate 10MG Orally Once a day 1 tablet 24h 30 Active Blood Glucose Monitoring Suppl w/Device monitor, strips & lancets Once a day prn as directed DX 250.02 Active Glucometer Test Strips dispense as insurance convers. Use as directed Oct, Active Potassium Chloride 10 mEq Orally Once a day 10 mEq by 24h Active Benztropine Mesylate 1 MG Orally Once a day 1 tablet at bedtime 24h Active Clonidine HCl 0.1MG Orally Once a day 1 tablet 24h 30 Active Multivitamin May, Active Diclofenac Sodium 75MG DR Orally 2 times a day 1 tablet 12h 30 Active RESULTS Name Result Date Reference Range A1C (IN HOUSE) 2016-05-03 A1C IN HOUSE 5.8 4.3 - 5.6 % Previous A1c 6.2 Lot [id number] Exp date 12/2017 MICROALBUMIN, URINE (IN HOUSE) 2016-05-03 MICROALBUMIN Normal Lot # [id number] Exp date Clarity Clear Color Yellow ALB 30mg/L CRE 300mg/dL A:C (IN HOUSE) <30mg/g Control Control Lot # Exp date PTT 2016-05-03 aPTT 28 24-33 ASO 2016-05-03 Antistreptolysin O Ab 28.3 0.0-200.0 MARI MTN SPOTTED FEVER, IgG 2016-05-03 RMSF, IgG, EIA Negative Negative MARI MTN SPOTTED FEVER, IgM 2016-05-[address] Mtn Spotted Fever, IgM 0.71 0.00-0.89 LYME, TOTAL ANTIBODY/REFLEX WESTERN BLOT 2016-05-03 Lyme IgG/IgM Ab <0.91 0.00-0.90 CBC 2016-05-03 WBC 8.6 3.4-10.8 RBC 4.74 4.14-5.80 Hemoglobin 13.9 12.6-17.7 Hematocrit 42.4 37.5-51.0 MCV 90 79-97 MCH 29.3 26.6-33.0 MCHC 32.8 31.5-35.7 RDW 14.0 12.3-15.4 Platelets 281 150-379 Neutrophils 57 Lymphs 28 Monocytes 10 Eos 5 Basos 0 Neutrophils (Absolute) 4.8 1.4-7.0 Lymphs (Absolute) 2.4 0.7-3.1 Monocytes(Absolute) 0.9 0.1-0.9 Eos (Absolute) 0.4 0.0-0.4 Baso (Absolute) 0.0 0.0-0.2 Immature Granulocytes 0 Immature Grans (Abs) 0.0 0.0-0.1 CMP 2016-05-03 Glucose, Serum 119 65-99 BUN 19 6-24 Creatinine, Serum 0.85 0.76-1.27 eGFR If NonAfricn Am 97 >59 eGFR If Africn Am 113 >59 BUN/Creatinine Ratio 22 9-20 Sodium, Serum 144 134-144 Potassium, Serum 3.8 3.5-5.2 Chloride, Serum 103 96-106 Carbon Dioxide, Total 25 18-29 Calcium, Serum 9.1 8.7-10.2 Protein, Total, Serum 6.4 6.0-8.5 Albumin, Serum 4.1 3.5-5.5 Globulin, Total 2.3 1.5-4.5 A/G Ratio 1.8 1.1-2.5 Bilirubin, Total 0.3 0.0-1.2 Alkaline Phosphatase, S 82 39-117 AST (SGOT) 24 0-40 ALT (SGPT) 39 0-44 PROCEDURES Procedure Date Ordered Result Body Site VENIPUNCT, ROUTINE* May 03, 2016 [facility] VISIT ESTABLISHED PATIENT May 03, 2016 EKG, TRACING (IN-HOUSE) 2016-05-03 N/A GLYCATED HEMOGLOBIN TEST May 03, 2016 TESTOSTERONE (PT'S OWN) May 03, 2016 LYME DISEASE ANTIBODY May 03, 2016 THER/PROPH/DIAG INJ, SC/IM May 03, 2016 LAB NOT BILLED BY [facility] May 03, 2016 MICROALBUMIN, SEMIQUANT May 03, 2016 RICKETTSIA ANTIBODY May 03, 2016 ELECTROCARDIOGRAM, TRACING May 03, 2016 IMMUNIZATIONS Vaccine Route Administration Date Status TESTOSTERONE (PT'S OWN) IM Intramuscular May 03, 2016 Administered MEDICAL (GENERAL) HISTORY Type Description Date Medical [...]
--- OUTSIDE RECORDS SUMMARY | 2016-12-19 06:59 | XMS REPORT ---
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 Active 029392227892 Problem Type 2 diabetes mellitus with unspecified complications E11.8 Active 37837224 Problem Primary insomnia F51.01 Active 2129133 Problem Essential (primary) hypertension I10 Active 46240269 Problem Hypokalemia E87.6 Active 52639473 Problem Mild intermittent asthma, uncomplicated J45.20 Active 700810917 Problem Hypotestosteronism E29.1 Active 5607425807998 Problem Erectile dysfunction of organic origin N52.9 Active 585127466 Problem Onychia of toe, right L03.031 Active 881896043 Problem 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 Active 915401976 Problem Recurrent major depressive disorder, in partial remission F33.41 Active 30564101 Problem Tremor R25.1 Active 01907763 Problem Mixed hyperlipidemia E78.2 Active 563373619 Problem Mood disorder F39 Active 55543442 Problem Mild intermittent asthma without complication J45.20 Active 827163206 Problem Hydrocele, right N43.3 Active 06001369 Problem Chronic fatigue R53.82 Active 76101932 Problem Lumbago with sciatica, right side M54.41 Active 772937930 Problem Generalized anxiety disorder F41.1 Active 13019908 Problem Major depression F32.9 Active 552712237 Problem Arthritis M19.90 Active 1554198 Problem Essential hypertension I10 Active 99548956 Problem Dyspepsia R10.13 Active 383240745 Problem Gastritis, unspecified, without bleeding K29.70 Active 432150664 Problem Major depression, chronic F32.9 Active 31786341 Problem Acute non-recurrent maxillary sinusitis J01.00 Active 01374139 ALLERGIES Substance Reaction Event Type Date Status Sulfamethoxazole anaphylaxis Drug Allergy Feb, Active Sodium Polystyrene Sulfonate nausea, vomiting Drug Allergy Feb, Active Remeron bad nightmares Drug Allergy Feb, Active Penicillin V Potassium anaphylaxis Drug Allergy Feb, Active Hydrocodone-Acetaminophen headache Drug Allergy Feb, Active SOCIAL HISTORY No smoking Hx information available PLAN OF CARE Activity Details Follow Up 4 Weeks Reason:DM/Stomach VITAL SIGNS Height 68 in 2016-03-01 Weight 250 lbs 2016-03-01 Temperature 98.9 degrees Fahrenheit 2016-03-01 Heart Rate 80 bpm 2016-03-01 Respiratory Rate 16 2016-03-01 BMI 38.01 kg/m2 2016-03-01 Blood pressure systolic 144 mmHg 2016-03-01 Blood pressure diastolic 82 mmHg 2016-03-01 MEDICATIONS Medication Instructions Dosage Frequency Start Date End Date Duration Status Amlodipine Besylate 10MG Orally Once a day 1 tablet 24h 30 Active Depo-Testosterone 200 MG/ML Intramuscular once monthly for 2 months then office visit before third injection 1 ml Active Viagra 100 MG Orally Once a day 1/2-1 tablet as needed 24h Feb, Active Clonidine HCl 0.1MG Orally Once a day 1 tablet 24h 30 Active Aspirin 81 mg chew 1 tablet (81 mg) by oral route once daily Active Biaxin 500 MG Orally every 12 hrs 1 tablet 12h Feb, Feb, 14 days Active Potassium Chloride 10 mEq Orally three times weekly 10 mEq by Active Hydrochlorothiazide 25MG Orally Once a day 1 tablet 24h 30 Active Diclofenac Sodium 75MG DR TAKE ONE TABLET BY MOUTH TWICE DAILY 30 Active Celexa 20 mg Orally Once a day 1 tablet 24h 30 days Active Ventolin HFA 108 (90 Base) MCG/ACT Inhalation every 4 hrs prn 2 puffs as needed Oct, Active Gabapentin 100MG 1 capsule at hs and prn cramping Orally 30 day(s) 30 Active Multivitamin May, Active Omeprazole 40 mg Orally Once a day 1 capsule 24h Feb, 30 day(s ) Active MetFORMIN HCl ER 500MG TAKE ONE TABLET BY MOUTH TWICE DAILY 30 Active Glucometer Test Strips dispense as insurance convers. Use as directed Oct, Active Metronidazole 500 MG Orally Twice a day 1 tablet 12h Feb, Feb, 14 days Active Blood Glucose Monitoring Suppl w/Device monitor, strips & lancets Once a day prn as directed DX 250.02 Active Metoprolol Tartrate 50MG Orally Twice a day 1 tablet 12h 30 Active Benazepril HCl 40MG Orally Once a day 1 tablet 24h 30 Active Klonopin 1 MG Orally at hs 1 tablet 20 Dec, 2014 28 days Active RESULTS Name Result Date Reference Range H PYLORI (IN HOUSE) 2016-03-01 H. PYLORI Positive Control + Lot # [id number] Exp date TESTOSTERONE, TOTAL 2016-03-01 Testosterone, Serum 873 128-8286 Comment: CMP 2016-03-01 Glucose, Serum 129 65-99 BUN 17 6-24 Creatinine, Serum 0.93 0.76-1.27 eGFR If NonAfricn Am 91 >59 eGFR If Africn Am 106 >59 BUN/Creatinine Ratio 18 9-20 Sodium, Serum 145 134-144 Potassium, Serum 3.9 3.5-5.2 Chloride, Serum 101 96-106 Carbon Dioxide, Total 23 18-29 Calcium, Serum 9.8 8.7-10.2 Protein, Total, Serum 6.8 6.0-8.5 Albumin, Serum 4.4 3.5-5.5 Globulin, Total 2.4 1.5-4.5 A/G Ratio 1.8 1.1-2.5 Bilirubin, Total <0.2 0.0-1.2 Alkaline Phosphatase, S 82 39-117 AST (SGOT) 25 0-40 ALT (SGPT) 37 0-44 PROCEDURES Procedure Date Ordered Related Diagnosis Body Site [facility] Mar 01, 2016 IMMUNOASSAY,INFECTIOUS AGENT Mar 01, 2016 SINGLE IMMUNIZATION ADMIN Mar 01, 2016 Office Visit, Est Pt., Level 5 Mar 01, 2016 [facility] VISIT ESTABLISHED PATIENT Mar 01, 2016 PPV23 (PNEUMOVAX) Mar 01, 2016 VENIPUNCT, ROUTINE* Mar 01, 2016 IMMUNIZATIONS Vaccine Route Administration Date Status PPV23 (PNEUMOVAX) IM Intramuscular Mar 01, 2016 Administered
--- OUTSIDE RECORDS SUMMARY | 2016-12-19 06:59 | XMS REPORT ---
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 Active 624674567324 Problem Type 2 diabetes mellitus with unspecified complications E11.8 Active 68900719 Problem Primary insomnia F51.01 Active 5975704 Problem Essential (primary) hypertension I10 Active 01783396 Problem Hypokalemia E87.6 Active 69585517 Problem Mild intermittent asthma, uncomplicated J45.20 Active 950730248 Problem Hypotestosteronism E29.1 Active 4591532333488 Problem Erectile dysfunction of organic origin N52.9 Active 165709930 Problem Onychia of toe, right L03.031 Active 930264689 Problem 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 Active 402120901 Problem Recurrent major depressive disorder, in partial remission F33.41 Active 15797553 Problem Tremor R25.1 Active 21031477 Problem Mixed hyperlipidemia E78.2 Active 051010256 Problem Mood disorder F39 Active 21862530 Problem Mild intermittent asthma without complication J45.20 Active 829251300 Problem Hydrocele, right N43.3 Active 82488834 Problem Chronic fatigue R53.82 Active 81340790 Problem Lumbago with sciatica, right side M54.41 Active 963149880 Problem Generalized anxiety disorder F41.1 Active 27765033 Problem Major depression F32.9 Active 711728166 Problem Arthritis M19.90 Active 9806048 Problem Essential hypertension I10 Active 28612820 Problem Dyspepsia R10.13 Active 415986144 Problem Gastritis, unspecified, without bleeding K29.70 Active 212802771 Problem Major depression, chronic F32.9 Active 81957034 Problem Acute non-recurrent maxillary sinusitis J01.00 Active 54216533 ALLERGIES Substance Reaction Event Type Date Status Sulfamethoxazole anaphylaxis Drug Allergy Mar, Active Sodium Polystyrene Sulfonate nausea, vomiting Drug Allergy Mar, Active Remeron bad nightmares Drug Allergy Mar, Active Penicillin V Potassium anaphylaxis Drug Allergy Mar, Active Hydrocodone-Acetaminophen headache Drug Allergy Mar, Active SOCIAL HISTORY Never Assessed PLAN OF CARE Activity Details Follow Up 4 Weeks Reason:DM VITAL SIGNS Height 68 in 2016-04-05 Weight 249.8 lbs 2016-04-05 Temperature 98.5 degrees Fahrenheit 2016-04-05 Heart Rate 80 bpm 2016-04-05 Respiratory Rate 18 2016-04-05 BMI 37.98 kg/m2 2016-04-05 Blood pressure systolic 126 mmHg 2016-04-05 Blood pressure diastolic 77 mmHg 2016-04-05 MEDICATIONS Medication Instructions Dosage Frequency Start Date End Date Duration Status Depo-Testosterone 200 MG/ML Intramuscular once monthly for 2 months then office visit before third injection 1 ml Active Viagra 100 MG Orally Once a day 1/2-1 tablet as needed 24h Feb, Active Omeprazole 40 mg Orally Once a day 1 capsule 24h Feb, 30 day(s ) Active Blood Glucose Monitoring Suppl w/Device monitor, strips & lancets Once a day prn as directed DX 250.02 Active Hydrochlorothiazide 25MG Orally Once a day 1 tablet 24h 30 Active Gabapentin 300 MG Orally at bedtime 1 capsule at hs and prn cramping Orally 30 day(s) Active Potassium Chloride 10 mEq Orally Once a day 10 mEq by 24h Active Clonidine HCl 0.1MG Orally Once a day 1 tablet 24h 30 Active Metoprolol Tartrate 50MG Orally Twice a day 1 tablet 12h 30 Active Klonopin 1 MG Orally at hs 1 tablet Dec, 30 days Active Trazodone HCl 50 mg Orally Once a day 1 tablet at bedtime as needed 24h Mar, 30 day(s) Active MetFORMIN HCl ER 500MG TAKE ONE TABLET BY MOUTH TWICE DAILY 30 Active Celexa 40 MG Orally Once a day 1 tablet 24h Mar, 30 day(s) Active Benazepril HCl 40MG Orally Once a day 1 tablet 24h 30 Active Aspirin 81 mg chew 1 tablet (81 mg) by oral route once daily Active Ventolin HFA 108 (90 Base) MCG/ACT Inhalation every 4 hrs prn 2 puffs as needed Oct, Active Glucometer Test Strips dispense as insurance convers. Use as directed Oct, Active Diclofenac Sodium 75MG DR TAKE ONE TABLET BY MOUTH TWICE DAILY 30 Active Multivitamin May, Active Amlodipine Besylate 10MG Orally Once a day 1 tablet 24h 30 Active Gabapentin 300 MG Orally voucher once a day 1 capsule 24h Mar, 30 day(s) Active RESULTS Name Result Date Reference Range CBC 2016-04-05 WBC 10.2 3.4-10.8 RBC 5.14 4.14-5.80 Hemoglobin 15.1 12.6-17.7 Hematocrit 46.0 37.5-51.0 MCV 90 79-97 MCH 29.4 26.6-33.0 MCHC 32.8 31.5-35.7 RDW 14.1 12.3-15.4 Platelets 291 150-379 Neutrophils 63 Lymphs 27 Monocytes 7 Eos 3 Basos 0 Neutrophils (Absolute) 6.3 1.4-7.0 Lymphs (Absolute) 2.8 0.7-3.1 Monocytes(Absolute) 0.7 0.1-0.9 Eos (Absolute) 0.3 0.0-0.4 Baso (Absolute) 0.0 0.0-0.2 Immature Granulocytes 0 Immature Grans (Abs) 0.0 0.0-0.1 CMP 2016-04-05 Glucose, Serum 105 65-99 BUN 20 6-24 Creatinine, Serum 0.90 0.76-1.27 eGFR If NonAfricn Am 95 >59 eGFR If Africn Am 110 >59 BUN/Creatinine Ratio 22 9-20 Sodium, Serum 145 134-144 Potassium, Serum 4.1 3.5-5.2 Chloride, Serum 101 96-106 Carbon Dioxide, Total 29 18-29 Calcium, Serum 9.3 8.7-10.2 Protein, Total, Serum 6.5 6.0-8.5 Albumin, Serum 4.2 3.5-5.5 Globulin, Total 2.3 1.5-4.5 A/G Ratio 1.8 1.1-2.5 Bilirubin, Total 0.3 0.0-1.2 Alkaline Phosphatase, S 81 39-117 AST (SGOT) 18 0-40 ALT (SGPT) 32 0-44 PROCEDURES Procedure Date Ordered Result Body Site [facility] Apr 05, 2016 VENIPUNCT, ROUTINE* Apr 05, 2016 FQ VISIT ESTABLISHED PATIENT Apr 05, 2016 IMMUNIZATIONS No Known Immunizations MEDICAL (GENERAL) [...]
[2016-12-19 07:00] VITALS: BP 126/80
--- OUTSIDE RECORDS SUMMARY | 2016-12-19 07:00 | XMS REPORT ---
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 Active 450658889675 Problem Type 2 diabetes mellitus with unspecified complications E11.8 Active 56443020 Problem Primary insomnia F51.01 Active 6657368 Problem Essential (primary) hypertension I10 Active 62057289 Problem Hypokalemia E87.6 Active 23187331 Problem Mild intermittent asthma, uncomplicated J45.20 Active 483081090 Problem Hypotestosteronism E29.1 Active 5455355494953 Problem Erectile dysfunction of organic origin N52.9 Active 007558483 Problem Onychia of toe, right L03.031 Active 151059604 Problem 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 Active 297614243 Problem Recurrent major depressive disorder, in partial remission F33.41 Active 18869853 Problem Tremor R25.1 Active 76248555 Problem Mixed hyperlipidemia E78.2 Active 423535513 Problem Mood disorder F39 Active 81754818 Problem Mild intermittent asthma without complication J45.20 Active 931569378 Problem Hydrocele, right N43.3 Active 48172075 Problem Chronic fatigue R53.82 Active 99666353 Problem Lumbago with sciatica, right side M54.41 Active 502151121 Problem Generalized anxiety disorder F41.1 Active 46425445 Problem Major depression F32.9 Active 878429120 Problem Arthritis M19.90 Active 6319858 Problem Essential hypertension I10 Active 52739041 Problem Dyspepsia R10.13 Active 532142547 Problem Gastritis, unspecified, without bleeding K29.70 Active 382323397 Problem Major depression, chronic F32.9 Active 33417307 Problem Acute non-recurrent maxillary sinusitis J01.00 Active 92645560 ALLERGIES Substance Reaction Event Type Date Status Sulfamethoxazole anaphylaxis Drug Allergy Apr, Active Sodium Polystyrene Sulfonate nausea, vomiting Drug Allergy Apr, Active Remeron bad nightmares Drug Allergy Apr, Active Penicillin V Potassium anaphylaxis Drug Allergy Apr, Active Hydrocodone-Acetaminophen headache Drug Allergy Apr, Active SOCIAL HISTORY Never Assessed PLAN OF CARE Activity Details Follow Up 4 Weeks Reason: VITAL SIGNS Height 68 in 2016-05-04 Weight 265.3 lbs 2016-05-04 Heart Rate 64 bpm 2016-05-04 Respiratory Rate 18 2016-05-04 BMI 40.33 kg/m2 2016-05-04 Blood pressure systolic 100 mmHg 2016-05-04 Blood pressure diastolic 68 mmHg 2016-05-04 MEDICATIONS Medication Instructions Dosage Frequency Start Date End Date Duration Status Amlodipine Besylate 10MG Orally Once a day 1 tablet 24h 30 Active Metoprolol Tartrate 50MG Orally Twice a day 1 tablet 12h 30 Active Viagra 100 MG TAKE ONE-HALF TO ONE TABLET BY MOUTH ONCE DAILY NEEDED 10 Active Depo-Testosterone 200 MG/ML Intramuscular once monthly for 2 months then office visit before third injection 1 ml Active Geodon 80 MG Orally Once a day 1 capsule with food 24h 30 days Active Clonidine HCl 0.1MG Orally Once a day 1 tablet 24h 30 Active Ventolin HFA 108 (90 Base) MCG/ACT Inhalation every 4 hrs prn 2 puffs as needed Oct, Active Hydrochlorothiazide 25MG Orally Once a day 1 tablet 24h 30 Active Klonopin 1 MG Orally once a day 1 tablet 24h Dec, 30 days Active Trazodone HCl 50 MG Orally Once a day 2 tablets 24h Mar, 30 days Active MetFORMIN HCl ER 500MG Orally twice a day 1 tablet 12h 30 Active Blood Glucose Monitoring Suppl w/Device monitor, strips & lancets Once a day prn as directed DX 250.02 Active Diclofenac Sodium 75MG DR Orally 2 times a day 1 tablet 12h 30 Active Omeprazole 40 mg Orally Once a day 1 capsule 24h Feb, 30 day(s ) Active Aspirin 81 mg chew 1 tablet (81 mg) by oral route once daily Active Celexa 40 MG Orally Once a day 1 tablet 24h Mar, 30 days Active Potassium Chloride 10 mEq Orally Once a day 10 mEq by 24h Active Multivitamin May, Active Glucometer Test Strips dispense as insurance convers. Use as directed Oct, Active Benazepril HCl 40MG Orally Once a day 1 tablet 24h 30 Active Benztropine Mesylate 1 MG Orally Once a day 1 tablet at bedtime 24h 30 days Active Gabapentin 300 MG Orally at bedtime 1 capsule at hs and prn cramping Orally 30 day(s) 30 days Active RESULTS No Results PROCEDURES Procedure Date Ordered Result Body Site [facility] VISIT ESTABLISHED PATIENT May 04, 2016 IMMUNIZATIONS No Known Immunizations MEDICAL (GENERAL) [...]
--- OUTSIDE RECORDS SUMMARY | 2016-12-19 07:01 | XMS REPORT ---
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 Active 001542746121 Problem Lumbar canal stenosis M48.06 Active 92912683 Problem Type 2 diabetes mellitus with unspecified complications E11.8 Active 96409091 Problem Primary insomnia F51.01 Active 3559806 Problem Mild intermittent asthma, uncomplicated J45.20 Active 186836838 Problem Hypokalemia E87.6 Active 20133173 Problem Essential (primary) hypertension I10 Active 65533230 Problem Onychia of toe, right L03.031 Active 199909286 Problem Erectile dysfunction of organic origin N52.9 Active 249614612 Problem Mild intermittent asthma without complication J45.20 Active 925270251 Problem Recurrent major depressive disorder, in partial remission F33.41 Active 93742226 Problem 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 Active 897729103 Problem Arthritis M19.90 Active 2897351 Problem Mixed hyperlipidemia E78.2 Active 024958255 Problem Mood disorder F39 Active 46441579 Problem Hypotestosteronism E29.1 Active 0664534011558 Problem Hydrocele, right N43.3 Active 98964249 Problem Lumbago with sciatica, right side M54.41 Active 424737815 Problem Chronic fatigue R53.82 Active 81658378 Problem Major depression F32.9 Active 241330941 Problem Generalized anxiety disorder F41.1 Active 66896726 Problem Essential hypertension I10 Active 89599034 Problem Tremor R25.1 Active 16607762 Problem Acute non-recurrent maxillary sinusitis J01.00 Active 68149092 Problem Dyspepsia R10.13 Active 586766886 Problem Major depression, chronic F32.9 Active 06034924 Problem Gastritis, unspecified, without bleeding K29.70 Active 380424492 ALLERGIES Unknown Allergies SOCIAL HISTORY No smoking Hx information available PLAN OF CARE Activity Details Follow Up 4 Weeks Reason: VITAL SIGNS MEDICATIONS Unknown Medications RESULTS No Results PROCEDURES Procedure Date Ordered Related Diagnosis Body Site INJ TESTOSTERONE CYPIONATE 1 MG 100 units Feb 18, 2016 THER/PROPH/DIAG INJ, SC/IM Feb 18, 2016 IMMUNIZATIONS Vaccine Route Administration Date Status TESTOSTERONE 200 MG/1 ML (UP TO 100 MG) IM Intramuscular Feb 18, 2016 Administered
--- OUTSIDE RECORDS SUMMARY | 2016-12-19 07:01 | XMS REPORT ---
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 Active 352282288124 Problem Type 2 diabetes mellitus with unspecified complications E11.8 Active 56454256 Problem Primary insomnia F51.01 Active 7704504 Problem Essential (primary) hypertension I10 Active 15305615 Problem Hypokalemia E87.6 Active 11550886 Problem Mild intermittent asthma, uncomplicated J45.20 Active 338375623 Problem Hypotestosteronism E29.1 Active 3686103340852 Problem Erectile dysfunction of organic origin N52.9 Active 882257492 Problem Onychia of toe, right L03.031 Active 738468581 Problem 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 Active 883038657 Problem Recurrent major depressive disorder, in partial remission F33.41 Active 09214960 Problem Tremor R25.1 Active 95383981 Problem Mixed hyperlipidemia E78.2 Active 775440353 Problem Mood disorder F39 Active 38118019 Problem Mild intermittent asthma without complication J45.20 Active 389266387 Problem Hydrocele, right N43.3 Active 17407939 Problem Chronic fatigue R53.82 Active 87672908 Problem Lumbago with sciatica, right side M54.41 Active 971964903 Problem Generalized anxiety disorder F41.1 Active 55321432 Problem Major depression F32.9 Active 089735723 Problem Arthritis M19.90 Active 3717738 Problem Essential hypertension I10 Active 38412192 Problem Dyspepsia R10.13 Active 943543574 Problem Gastritis, unspecified, without bleeding K29.70 Active 178438082 Problem Major depression, chronic F32.9 Active 72477094 Problem Acute non-recurrent maxillary sinusitis J01.00 Active 46247824 ALLERGIES Unknown Allergies SOCIAL HISTORY No smoking Hx information available PLAN OF CARE VITAL SIGNS MEDICATIONS Unknown Medications RESULTS No Results PROCEDURES Procedure Date Ordered Related Diagnosis Body Site TESTOSTERONE (PT'S OWN) Mar 30, 2016 THER/PROPH/DIAG INJ, SC/IM Mar 30, 2016 IMMUNIZATIONS Vaccine Route Administration Date Status TESTOSTERONE (PT'S OWN) IM Intramuscular Mar 30, 2016 Administered
--- NOTE | 2016-12-19 07:17 | Progress Note-Pre Operative ---
Pre-Operative Progress Note H&P Reviewed The H&P was reviewed, patient examined and no changes noted. Date Seen by Provider: Dec 19, 2016 Time Seen by Provider: 07:17 Date H&P Reviewed: Dec 19, 2016 Time H&P Reviewed: 07:17 Pre-Operative Diagnosis: RT HYDROCELE CONTRERAS BLANCO MD Dec 19, 2016 7:17 am
[2016-12-19] MEDS ORDERED: ceFAZolin 1 GM/NS 50 ML IVPB IV ONE ×2 (08:00)
[2016-12-19] MEDS: LACTATED RINGERS 1,000 ML IV PRN ×2 (08:06→09:10)
[2016-12-19] MEDS ORDERED: SEVOFLURANE (ULTANE) 15 ML INHAL SOLN ONE (08:19)
[2016-12-19] MEDS ORDERED: proPOfol 200 MG/20 ML (DIPRIVAN) VIAL IV ONE (08:19)
[2016-12-19] MEDS ORDERED: ONDANSETRON 4 MG/2 ML (SDV) Z0FRAN ONE (08:19)
[2016-12-19] MEDS ORDERED: LIDOCAINE PF 2% 5 ML (XYLOCAINE) VIAL ONE (08:19)
[2016-12-19] MEDS ORDERED: fentaNYL INJECTION 100 MCG/2 ML AMP ONE (08:20)
[2016-12-19] MEDS ORDERED: MIDAZOLAM 2 MG/2 ML (VERSED) VIAL ONE (08:20)
[2016-12-19] MEDS ORDERED: PSYL3.4P5 PO (09:02)
--- NOTE | 2016-12-19 09:18 | Progress Note-Post Operative ---
Post-Operative Progess Note Surgeon (s)/Health Services Rn (s) Surgeon CONTRERAS BLANCO MD Health Services Rn: N/A Pre-Operative Diagnosis RT HYDROCELE Post-Operative Diagnosis SAME Procedure & Operative Findings Date of Procedure 12/19/16 Procedure Performed/Findings RT MODERATE HYDROCELE Anesthesia Type GENERAL Estimated Blood Loss Estimated blood loss (mL): LESS THAN 50CC Specimens/Packing Specimens Removed NONE Packin/4" RINA DRAIN CONTRERAS BLANCO MD Dec 19, 2016 9:18 am
--- NOTE | 2016-12-19 09:22 | Discharge Inst-Urology ---
Discharge Inst-Urology Discharge Medications New, Converted, or Re-newed RX: RX on Chart Patient Instructions/Follow Up Plan Come to office tomorrow at 9am to DC drain and then start showers, no bath Please make appointment to been seen in office in 2 weeks, rest till then, off ASA, scrotal support Keep bowels soft and moving Ice in RR and for 6hrs at home and then PRN Increase oral fluids for 48 hours and then as needed. Diet as tolerated. If questions or concerns contact your physician Or seek help at emergency department. CONTRERAS BLANCO MD Dec 19, 2016 9:22 am
[2016-12-19] MEDS ORDERED: morphine INJ 10 MG/ML 1ML (SYR OR VIAL) IVP PRN (09:30)
[2016-12-19] MEDS ORDERED: ONDANSETRON 4 MG/2 ML (SDV) Z0FRAN IVP PRN (09:30)
[2016-12-19 10:20] VITALS: BP 139/89
[2016-12-19 10:50] VITALS: BP 138/83
[2016-12-19 11:20] VITALS: BP 138/82
[2016-12-19] MEDS ORDERED: CEPH-507 PO (11:53)
[2016-12-19] MEDS ORDERED: OXYC-471 PO (11:57)
[2016-12-19 12:28] VITALS: BP 138/82
--- NOTE | 2016-12-19 15:19 | OPERATIVE REPORT ---
DATE OF SERVICE: 12/19/2016 PREOPERATIVE DIAGNOSIS: Moderate right hydrocele. POSTOPERATIVE DIAGNOSIS: Moderate right hydrocele. OPERATION PERFORMED: Right hydrocelectomy. SURGEON: Contreras Blanco MD ANESTHESIA: General. COMPLICATIONS: None. PROCEDURE: Under satisfactory general anesthesia, the patient in supine position, the abdomen, genitalia, and thigh were prepped and draped in the usual sterile fashion. An incision was made in the median rhaphe of the scrotum and carried through the scrotal compartment. A moderate amount of fluid was suctioned. The hydrocele sac was not big to excise, so I went ahead and reverted it behind the cord to prevent recurrence using interrupted 3-0 chromic catgut. Hemostasis was very adequate and testicles and all structures were intact and normal. Testicle was replaced back into the scrotum that was drained with a quarter of an inch Nicole drain brought through a separate stab in the bottom of the scrotum secured in position with 3-0 chromic catgut. Closure was performed in layer. The dartos with a running 3-0 chromic catgut and the skin was interrupted 4-0 Vicryl. Telfa fluff and scrotal support was applied. Estimated blood loss was less than 50 mL, none of which was replaced. Needle, sponge, and instrument counts were correct x2. The patient tolerated the procedure and anesthesia well and was sent to recovery room in stable condition. Job ID: [id number] DocumentID: [id number] Dictated Date: 12/19/2016 09:25:56 Electronic Equipment Repairmen Date: 12/19/2016 13:35:22 Dictated By: CONTRERAS BLANCO MD
== END 2016-12-19 12:28 | disposition home or self-care (01) ==
LOC: SDC 06:52
PROVIDERS: ATTEND Urology
DX: N43.3 Hydrocele, unspecified (principal); Z11.2 Encounter for screening for other bacterial diseases; N40.0 Benign prostatic hyperplasia without lower urinary tract symptoms; K21.9 Gastro-esophageal reflux disease without esophagitis; F32.9 Major depressive disorder, single episode, unspecified; I25.10 Atherosclerotic heart disease of native coronary artery without angina pectoris; I10 Essential (primary) hypertension; E11.9 Type 2 diabetes mellitus without complications; G62.9 Polyneuropathy, unspecified; J45.909 Unspecified asthma, uncomplicated; M48.061 Spinal stenosis, lumbar region without neurogenic claudication; Z79.899 Other long term (current) drug therapy
CPT/HCPCS: 82962; 87081

== ENCOUNTER → 2017-02-01 | Outpatient (CLI) | payer MEDICARE ==
[~2017-02-01] VITALS: Ht 172.7 cm; Wt 117.9 kg
[~2017-02-01] MED LIST changes: +CATHETER FLUSH 10 ML SYR IV PRN; +CEPH-507 PO; +METO50TA15 PO; +OXYC-471 PO; +PSYL3.4P5 PO; +REGADENOSON 0.4 MG/5 ML SYR (LEXISCAN) IV ONE
[2017-02-01 09:46] VITALS: BP 151/96
--- NOTE | 2017-02-01 22:25 | STRESS TEST ---
DATE OF SERVICE: 02/01/2017 LEXISCAN MYOVIEW STRESS TEST REPORT REFERRING PHYSICIAN: [facility]. Baseline heart rate is 58. Baseline blood pressure 151/96. Baseline EKG is sinus rhythm with no ischemic changes. SUMMARY: The patient was injected with 10.78 mCi of technetium-99 Myoview and the resting images were obtained. Then, the patient received 0.4 mg of Lexiscan followed by 29.6 mCi of technetium-99 Myoview. Throughout the test, there were no EKG changes. The resting and stress images were reviewed and compared in the short axis, horizontal long axis and vertical long axis views. Review of the images showed good radiotracer uptake with mild decreased uptake at the mid to apical anterior wall with mild reversibility. SSS is 1. SDS 1. TID value 1.05. On the gated images, the left ventricle appeared to be normal size with normal contractility. Calculated ejection fraction 53%. CONCLUSION: 1. The patient tolerated Lexiscan well. 2. Mild decreased uptake at the mid to apical anterior wall with mild reversibility. 3. Normal left ventricular size with normal contractility. Calculated ejection fraction 53%. Job ID: [id number] DocumentID: [id number] Dictated Date: 02/01/2017 16:07:21 Director Health Date: 02/01/2017 19:16:01 Dictated By: BULL BROWN MD
== END ==
LOC: CARD 08:10
PROVIDERS: ATTEND Physician Assistant
DX: R07.89 Other chest pain (principal); I10 Essential (primary) hypertension; E78.2 Mixed hyperlipidemia; E66.01 Morbid (severe) obesity due to excess calories; Z68.39 Body mass index [BMI] 39.0-39.9, adult
CPT/HCPCS: 78452; 93017

== ENCOUNTER 2017-02-06 06:39 | Day surgery (SDC) | payer MEDICARE ==
[2017-02-06] VITALS (8 sets, daily range): BP systolic 112–139; BP diastolic 76–93
[~2017-02-06] VITALS: Ht 172.7 cm; Wt 117.9 kg
[~2017-02-06 06:39] MED LIST changes: -CATHETER FLUSH 10 ML SYR IV PRN; -REGADENOSON 0.4 MG/5 ML SYR (LEXISCAN) IV ONE
--- OUTSIDE RECORDS SUMMARY | 2017-02-06 06:46 | XMS REPORT ---
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 Active 077076767690 Problem Lumbar canal stenosis M48.06 Active 45437286 Problem Type 2 diabetes mellitus with unspecified complications E11.8 Active 20501779 Problem Essential (primary) hypertension I10 Active 62298683 Problem Hypokalemia E87.6 Active 94716398 Problem Mild intermittent asthma, uncomplicated J45.20 Active 818651476 Problem Hypotestosteronism E29.1 Active 0599939718166 Problem Mood disorder F39 Active 89327366 Problem Mild intermittent asthma without complication J45.20 Active 340849701 Problem Erectile dysfunction of organic origin N52.9 Active 019420131 Problem Onychia of toe, right L03.031 Active 062745857 Problem Other chronic pain G89.29 Active 81432190 Problem 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 Active 489299917 Problem Arthritis M19.90 Active 3284493 Problem Tremor R25.1 Active 08832855 Problem Mixed hyperlipidemia E78.2 Active 717203440 Problem Chronic fatigue R53.82 Active 85459734 Problem Hydrocele, right N43.3 Active 26943325 Problem Recurrent major depressive disorder, in partial remission F33.41 Active 17990430 Problem Lumbago with sciatica, right side M54.41 Active 407598141 Problem Major depression F32.9 Active 705529295 Problem Major depression, chronic F32.9 Active 04338952 Problem Essential hypertension I10 Active 42912797 Problem Generalized anxiety disorder F41.1 Active 19730067 Problem Gastritis, unspecified, without bleeding K29.70 Active 311346412 Problem Primary insomnia F51.01 Active 6368851 Problem Acute non-recurrent maxillary sinusitis J01.00 Active 19878963 Problem Dyspepsia R10.13 Active 084208938 ALLERGIES Substance Reaction Event Type Date Status Sulfamethoxazole anaphylaxis Drug Allergy June, Active Sodium Polystyrene Sulfonate nausea, vomiting Drug Allergy June, Active Remeron bad nightmares Drug Allergy June, Active Penicillin V Potassium anaphylaxis Drug Allergy June, Active Hydrocodone-Acetaminophen headache Drug Allergy June, Active SOCIAL HISTORY Never Assessed PLAN OF CARE Activity Details Follow Up 3 Months Reason: VITAL SIGNS Height 68 in 2016-07-06 Weight 267.0 lbs 2016-07-06 Heart Rate 56 bpm 2016-07-06 Respiratory Rate 18 2016-07-06 BMI 40.59 kg/m2 2016-07-06 Blood pressure systolic 94 mmHg 2016-07-06 Blood pressure diastolic 60 mmHg 2016-07-06 MEDICATIONS Medication Instructions Dosage Frequency Start Date End Date Duration Status Amlodipine Besylate 10MG Orally Once a day 1 tablet 24h 30 Active Blood Glucose Monitoring Suppl w/Device monitor, strips & lancets Once a day prn as directed DX 250.02 Active Hydrochlorothiazide 25MG Orally Once a day 1 tablet 24h 30 Active Viagra 100 MG TAKE ONE-HALF TO ONE TABLET BY MOUTH ONCE DAILY NEEDED 10 Active Benztropine Mesylate 1 MG Orally Once a day 1 tablet at bedtime 24h 30 days Active Celexa 40 MG Orally Once a day 1 tablet 24h Mar, 30 days Active MetFORMIN HCl ER 500MG Orally twice a day 1 tablet 12h 30 Active Geodon 80 MG Orally Once a day 1 capsule with food 24h 30 days Active Aspirin 81 mg chew 1 tablet (81 mg) by oral route once daily Active Omeprazole 40 mg Orally Once a day 1 capsule 24h Feb, 30 day(s ) Active Clonidine HCl 0.1MG Orally Once a day 1 tablet 24h 30 Active Gabapentin 300 MG Orally at bedtime 1 tablet 30 days Active Benazepril HCl 40MG Orally Once a day 1 tablet 24h 30 Active Trazodone HCl 50 MG Orally Once a day 2 tablets 24h Mar, 30 days Active Lamisil 250 MG Orally Once a day 1 tablet 24h May, June, 30 days Active Potassium Chloride 10 mEq Orally Once a day 10 mEq by 24h Active Depo-Testosterone 200 MG/ML Intramuscular once monthly for 2 months then office visit before third injection 1 ml Active Metoprolol Tartrate 50MG Orally Twice a day 1 tablet 12h 30 Active Diclofenac Sodium 75MG DR Orally 2 times a day 1 tablet 12h 30 Active Tramadol HCl 50 mg Orally every 8 hours, PRN 1 tablet as needed May, Active Ventolin HFA 108 (90 Base) MCG/ACT Inhalation every 4 hrs prn 2 puffs as needed Oct, Active Klonopin 1 MG Orally once a day 1 tablet 24h Dec, 30 days Active Glucometer Test Strips dispense as insurance convers. Use as directed Oct, Active Multivitamin May, Active Percocet 5-325 MG Orally every 6 hrs 1 tablet as needed 6h Active RESULTS No Results PROCEDURES Procedure Date Ordered Result Body Site [facility] VISIT ESTABLISHED PATIENT July 06, 2016 IMMUNIZATIONS No Known Immunizations MEDICAL (GENERAL) [...] Heart Cath. 2014 Hospitalization History Knee Scope 1983 Hospitalization History [facility] Mar 2016 Hospitalization History chest pain August 29, 2016
[2017-02-06] MEDS ORDERED: HEParin (CATH LAB) 2,000 ML IV ONE (06:47)
[2017-02-06] MEDS ORDERED: LIDOCAINE 1% INJ 50 ML (XYLOCAINE) VIAL ONE (06:47)
[2017-02-06] MEDS ORDERED: NS IV 1000 ML 1,000 ML ONE (06:47)
--- OUTSIDE RECORDS SUMMARY | 2017-02-06 06:47 | XMS REPORT ---
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 Active 172041047897 Problem Lumbar canal stenosis M48.06 Active 70587549 Problem Type 2 diabetes mellitus with unspecified complications E11.8 Active 56705609 Problem Essential (primary) hypertension I10 Active 97510046 Problem Hypokalemia E87.6 Active 13901557 Problem Mild intermittent asthma, uncomplicated J45.20 Active 711841335 Problem Hypotestosteronism E29.1 Active 6237805539494 Problem Mood disorder F39 Active 22616351 Problem Mild intermittent asthma without complication J45.20 Active 726785980 Problem Erectile dysfunction of organic origin N52.9 Active 867413142 Problem Onychia of toe, right L03.031 Active 486478221 Problem Other chronic pain G89.29 Active 27737951 Problem 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 Active 240170435 Problem Arthritis M19.90 Active 9814340 Problem Tremor R25.1 Active 21094718 Problem Mixed hyperlipidemia E78.2 Active 853888016 Problem Chronic fatigue R53.82 Active 83214382 Problem Hydrocele, right N43.3 Active 54494874 Problem Recurrent major depressive disorder, in partial remission F33.41 Active 66995277 Problem Lumbago with sciatica, right side M54.41 Active 890618117 Problem Major depression F32.9 Active 182207218 Problem Major depression, chronic F32.9 Active 94071553 Problem Essential hypertension I10 Active 45205163 Problem Generalized anxiety disorder F41.1 Active 73910031 Problem Gastritis, unspecified, without bleeding K29.70 Active 479197296 Problem Primary insomnia F51.01 Active 2981209 Problem Acute non-recurrent maxillary sinusitis J01.00 Active 02507526 Problem Dyspepsia R10.13 Active 692519036 ALLERGIES No Information SOCIAL HISTORY Never Assessed PLAN OF CARE VITAL SIGNS MEDICATIONS Unknown Medications RESULTS No Results PROCEDURES Procedure Date Ordered Result Body [facility] MARIIA, ROUTINE* July 12, 2016 IMMUNIZATIONS No Known Immunizations MEDICAL (GENERAL) [...]
--- OUTSIDE RECORDS SUMMARY | 2017-02-06 06:47 | XMS REPORT ---
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 Active 524499465391 Problem Lumbar canal stenosis M48.06 Active 69423998 Problem Type 2 diabetes mellitus with unspecified complications E11.8 Active 47640071 Problem Essential (primary) hypertension I10 Active 48467605 Problem Hypokalemia E87.6 Active 74310664 Problem Mild intermittent asthma, uncomplicated J45.20 Active 693680408 Problem Hypotestosteronism E29.1 Active 6950795924385 Problem Mood disorder F39 Active 99833592 Problem Mild intermittent asthma without complication J45.20 Active 021875535 Problem Erectile dysfunction of organic origin N52.9 Active 067909999 Problem Onychia of toe, right L03.031 Active 057991440 Problem Other chronic pain G89.29 Active 86945932 Problem 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 Active 372497080 Problem Arthritis M19.90 Active 1583017 Problem Tremor R25.1 Active 61236336 Problem Mixed hyperlipidemia E78.2 Active 246407960 Problem Chronic fatigue R53.82 Active 99457699 Problem Hydrocele, right N43.3 Active 80789682 Problem Recurrent major depressive disorder, in partial remission F33.41 Active 20539242 Problem Lumbago with sciatica, right side M54.41 Active 090755345 Problem Major depression F32.9 Active 413843567 Problem Major depression, chronic F32.9 Active 46066173 Problem Essential hypertension I10 Active 98196522 Problem Generalized anxiety disorder F41.1 Active 65740679 Problem Gastritis, unspecified, without bleeding K29.70 Active 554407804 Problem Primary insomnia F51.01 Active 8280724 Problem Acute non-recurrent maxillary sinusitis J01.00 Active 69331094 Problem Dyspepsia R10.13 Active 524680138 ALLERGIES No Information SOCIAL HISTORY Never Assessed PLAN OF CARE VITAL SIGNS MEDICATIONS Unknown Medications RESULTS No Results PROCEDURES No Known procedures [...]
[2017-02-06] MEDS ORDERED: NS IV 1000 ML 1,000 ML IV SCH ×3 (06:50→10:26)
[2017-02-06 07:16] LABS: KETONES,URINE NEGATIVE (NEGATIVE); LEUKOCYTE ESTERASE ,URINE 1+ (NEGATIVE); NITRITE,URINE NEGATIVE (NEGATIVE); PH,URINE 6 (5-9); PROTEIN,URINE 1+ (NEGATIVE); UROBILINOGEN,URINE 1 MG/DL (NORMAL)
[2017-02-06 07:18] LABS: MEAN PLATELET VOLUME 9.5 FL (7.4-10.4); RED BLOOD COUNT 4.68 10^6/uL (4.35-5.85); RED CELL DISTRIBUTION WIDTH 13.9 % (10.0-14.5); WHITE BLOOD COUNT 9.5 10^3/uL (4.3-11.0)
[2017-02-06 07:31] LABS: BILIRUBIN,URINE 2+ (NEGATIVE); HYALINE CASTS, URINE >50 /LPF
[2017-02-06 07:33] LABS: PROTHROMBIN TIME PATIENT 12.9 SEC (12.2-14.7)
[2017-02-06 07:43] LABS: ALANINE AMINOTRANSFERASE 37 U/L (0-55); ALBUMIN 3.7 GM/DL (3.2-4.5); ANION GAP 10 MMOL/L (5-14); ASPARTATE AMINO TRANSFERASE 22 U/L (5-34); BILIRUBIN,TOTAL 0.3 MG/DL (0.1-1.0); BLOOD UREA NITROGEN 16 MG/DL (7-18); BUN/CREATININE RATIO 18; CALCIUM 9.2 MG/DL (8.5-10.1); CARBON DIOXIDE 30 MMOL/L (21-32); CHLORIDE 105 MMOL/L (98-107); CHOLESTEROL 122 MG/DL (< 200); CREATININE SERUM 0.88 MG/DL (0.60-1.30); DIRECT LDL 70 MG/DL (1-129); GFR ESTIMATED > 60; GLUCOSE 87 MG/DL (70-105); POTASSIUM 3.8 MMOL/L (3.6-5.0); SODIUM 145 MMOL/L (135-145); TOTAL PROTEIN 6.6 GM/DL (6.4-8.2); TRIGLYCERIDES 168 MG/DL (<150); VLDL CHOLESTEROL 34 MG/DL (5-40)
[2017-02-06] MEDS ORDERED: ASPI-983 PO (07:44)
[2017-02-06] MEDS ORDERED: POTA10TA6 PO (07:44)
[2017-02-06] MEDS ORDERED: OXYC-201 PO (07:44)
[2017-02-06] MEDS ORDERED: CYCL10TA9 PO (07:44)
[2017-02-06] MEDS ORDERED: ATOR40TA70 PO (07:44)
[2017-02-06] MEDS ORDERED: ALFU10TA11 PO (07:44)
--- NOTE | 2017-02-06 08:01 | Diagnostic Imaging Report ---
INDICATION: Chest pain, coronary artery disease, hypertension. History of diabetes.. TECHNIQUE: Single view chest 7:28 AM. CORRELATION STUDY: 08/29/2016 FINDINGS: Heart size enlarged. Mediastinum is relatively stable. Vasculature within normal limits. The lungs are clear with no consolidating infiltrate. There is no significant effusion or pneumothorax. IMPRESSION: 1. Minimal left basilar atelectasis. Cardiac enlargement without failure. Dictated by: Dictated on workstation # [id number]
[2017-02-06] MEDS ORDERED: VERAPAMIL 5 MG/2 ML (CALAN) VIAL IV ONE (09:30)
[2017-02-06] MEDS ORDERED: NITROGLYCERIN DRIP 25 MG/D5W 250 ML IV ONE (09:30)
[2017-02-06] MEDS ORDERED: fentaNYL INJECTION 100 MCG/2 ML AMP ONE (09:30)
[2017-02-06] MEDS ORDERED: HEParin 1000 UNIT/ML (10ML VIAL) FOR BOLUS ONE (09:30)
[2017-02-06] MEDS ORDERED: MIDAZOLAM 2 MG/2 ML (VERSED) VIAL ONE (09:30)
[2017-02-06] MEDS ORDERED: CLOPIDOGREL 300 MG (PLAVIX) TABLET PO ONE (09:32)
[2017-02-06] MEDS ORDERED: ASPIRIN 81 MG CHEW (CHILDREN'S ASA) ONE (09:32)
--- NOTE | 2017-02-06 09:47 | Cardiac Procedure Note-CS/ASA ---
Pre-Procedure Note Pre-Op Procedure Note H&P Reviewed The H&P was reviewed, patient examined and no changes noted. Date H&P Reviewed: Feb 06, 2017 Time H&P Reviewed: 09:47 Conscious Sedation Pre-Proced Time Reviewed: 09:47 ASA Class: 3 Airway Mallampati Classification: (port gamble appropriate class) I. II. III, IV Lungs Heart ASA score ASA 1: a normal healthy patient ASA 2: a patient with a mild systemic disease (mid diabetes, controlled hypertension, obesity x ASA 3: a patient with a severe systemic disease that limits activity (angina , COPD, prior Myocardial infarction) ASA 4: a patient with an incapacitating disease that is a constant threat to life (CHF, renal failure) ASA 5: a moribund patient not expected to survive 24 hrs. (ruptured aneurysm) ASA 6: a declared brain patient whose organs are being harvested. For emergent operations, add the letter E after the classification Grade 3 Sedation Plan: Analgesia, Amnesia, Plan communicated to team members, Discussed options with patient/fam, Discussed risks with patient/fam Note The patient is an appropriate candidate to undergo the planned procedure, sedation, and anesthesia. The patient immediately re-assessed prior to indication. BULL BROWN MD Feb 06, 2017 09:47
--- NOTE | 2017-02-06 10:28 | Discharge Inst-Post CATH ---
Discharge Inst-CATH Post Cardiac Cath D/C Inst Follow Up/Plan Hold metformin for [address] Blue's office in 2-4 weeks CARDIAC CATH DISCHARGE INSTRUCTIONS *Hold Metformin for 48 hours post heart cath. ACTIVITY * Go Home directly and rest. * Limit activity of the leg (or wrist if it was used) for 7 days including aerobics, swimming, jogging, bicycling, etc. * Restrict stair-climbing for 7 days if possible, if not, climb up with your non -cath leg, then bring together on the same step. * Avoid lifting, pushing, pulling or excessive movement of the affected extremity for 7 days. * Customary sexual activity may be resumed after 2 days-use caution not to use a position that strains or causes pain to the affected extremity. * No driving for 24 hours. * NO SMOKING. * Avoid straining for bowel movements for 7 days. * Gentle walking on level ground is allowed. * Returning to work will depend on the type of procedure and the results. Your doctor will discuss this with you. CALL YOUR DOCTOR FOR ANY OF THE FOLLOWING: *If bleeding from the puncture site occurs- Apply gentle pressure to site with clean cloth and call your doctor or EMS. * If a knot or lump forms under the skin, increases in size, or causes pain. * If bruising appears to be worsening or moving further down your leg instead of disappearing. * Temperature above 101 F. CARE OF YOUR GROIN INCISION; * Bruising or purple discoloration of the skin near the puncture site is common. * You may shower only, no bathtub bathing for 5 days. Be careful to avoid slipping as your leg may feel stiff. * If a closure device was used on your femoral artery, please see the attached guide regarding care of the device and your leg. * REMOVE the dressing from your groin the next day after your procedure in the shower. CARE OF YOUR WRIST INCISION; * Bruising or purple discoloration of the skin near the puncture site is common. * You may shower. * DO NOT submerge wrist. * Remove dressing in 24 hours. BULL BLUE MD Feb 06, 2017 10:28
--- NOTE | 2017-02-06 10:32 | Cardiac Cath Report ---
Cardiac Cath Report Physician (s)/Licensed Bondsman (s) Physician BULL BROWN MD Pre-Procedure Diagnosis Pre-Procedure Diagnosis: Coronary artery disease Post-Procedure Note Procedure Start Date: Feb 06, 2017 Name of Procedure: Coronary angiogram, [id number] Findings/Procedure Note PROCEDURE NOTE: After explaining the procedure to the patient, all pros and cons were explained, all questions were answered. The patient signed the consent and then she was placed on the cardiac catheterization laboratory. The patient was placed on the cardiac catheterization laboratory. Wrist was prepped SL fashion local anesthesia was used. Sheath placed in the right radial James catheter was used to access the left carotid system, Karely right catheter was used to access the right carotid system Angiogram was done At the end of the procedure the sheath was removed. FINDINGS: Hemodynamics Aorta 97/61 mean of 52 ANATOMY: Left Main as no obstructive disease Left Anterior Descending has mild ectasia with small vessel disease distally nonobstructive disease Left Circumflex has mild ectasia with no obstructive disease Right Coronory Artery has mild diffuse ectasia with slow flow, small vessel disease CONCLUSION: 1. Coronary ectasia with slow flow mainly in the right coronary artery, small vessel disease nonobstructive disease 2. No left ventriculogram was done, no crossing of the aortic valve DISCUSSION AND RECOMMENDATION: Risk factors modification, diet controlled, lower cholesterol, diabetic control Anesthesia Type: Conscious Sedation Estimated blood loss (mL): 10 ml Contrast Amount: 60 ml Total Radiation Dose: 500 mGy Post-Procedure Diagnosis Post-operative diagnosis: Coronary artery disease Hypertension Hyperlipidemia Diabetes mellitus BULL BROWN MD Feb 06, 2017 10:32
== END 2017-02-06 13:25 | disposition home or self-care (01) ==
LOC: CATH 06:39
PROVIDERS: ATTEND Internal Medicine Cardiovascular Disease
DX: I25.10 Atherosclerotic heart disease of native coronary artery without angina pectoris (principal); R07.9 Chest pain, unspecified; Z11.2 Encounter for screening for other bacterial diseases; R82.90 Unspecified abnormal findings in urine; I10 Essential (primary) hypertension; R78.5 Finding of other psychotropic drug in blood; E66.9 Obesity, unspecified; Z68.39 Body mass index [BMI] 39.0-39.9, adult; Z79.82 Long term (current) use of aspirin; Z79.899 Other long term (current) drug therapy; Z88.0 Allergy status to penicillin; Z88.2 Allergy status to sulfonamides; Z88.5 Allergy status to narcotic agent
CPT/HCPCS: 36415; 71010; 80053; 80061; 81000; 85027; 85610; 85730; 87081; 87088; 93005; 93454